=== PATIENT | male | born 1935 | race Caucasian/White ===

== ENCOUNTER → 2023-07-21 10:41 | Outpatient (REF) | payer MEDICARE, SELFPAY ==
[2023-07-21 13:46] LABS: PSA, Total - Diagnostic 4.12 ng/ml (0.0-4.0)
== END ==
LOC: REG 10:41
PROVIDERS: ATTENDING PHYSICIAN Specialist
DX: C61 Malignant neoplasm of prostate (principal)
CPT/HCPCS: 36415; 84153

== ENCOUNTER → 2023-11-22 09:50 | Outpatient (REF) | payer MEDICARE, SELFPAY ==
[2023-11-22 20:40] LABS: ALT (SGPT) 43 U/L (0-50); AST (SGOT) 45 U/L (17-59); Albumin 4.6 g/dl (3.5-5.0); Alkaline Phosphatase 75 U/L (38-126); Blood Urea Nitrogen 18 mg/dl (9-20); Calcium 9.5 mg/dl (8.4-10.2); Carbon Dioxide 27 mmol/L (22-30); Chloride 103 mmol/L (98-107); Glucose 111 mg/dl (70-99); HDL Cholesterol 48 mg/dl; LDL Cholesterol, Calculated 112 mg/dl; Potassium 4.6 mmol/L (3.5-5.1); Sodium 141 mmol/L (135-145); Total Bilirubin 0.9 mg/dl (0.2-1.3); Total Cholesterol 184 mg/dl (50-199); Total Protein 8.1 g/dl (6.3-8.2); Triglyceride 123 mg/dl (10-149); Very Low Density Lipoprotein 24 mg/dl (0-30); eGFR > 60.00
== END ==
LOC: CLAB 09:50
PROVIDERS: ATTENDING PHYSICIAN Family Medicine
DX: E78.2 Mixed hyperlipidemia (principal)
CPT/HCPCS: 36415; 80053; 80061

== ENCOUNTER → 2024-01-17 10:47 | Outpatient (REF) | payer MEDICARE, SELFPAY ==
[2024-01-17 14:08] LABS: PSA, Total - Diagnostic 5.55 ng/ml (0.0-4.0)
== END ==
LOC: RAD 10:47
PROVIDERS: ATTENDING PHYSICIAN Specialist
DX: C61 Malignant neoplasm of prostate (principal)
CPT/HCPCS: 36415; 84153

== ENCOUNTER → 2024-07-18 10:36 | Outpatient (REF) | payer MEDICARE, SELFPAY ==
[2024-07-18 12:32] LABS: PSA, Total - Diagnostic 7.29 ng/ml (0.0-4.0)
== END ==
LOC: REG 10:36
PROVIDERS: ATTENDING PHYSICIAN Specialist
DX: C61 Malignant neoplasm of prostate (principal)
CPT/HCPCS: 36415; 84153

== ENCOUNTER → 2024-07-21 15:43 | Outpatient (REF) | payer MEDICARE, SELFPAY ==
[2024-07-21 16:45] LABS: Urine Albumin 4+ (Neg - Trace); Urine Bilirubin Negative (Negative); Urine Character Bloody (Clear); Urine Color Red; Urine Glucose Negative (Negative); Urine Ketone 1+ (Negative); Urine Leukocyte Negative (Negative); Urine Nitrite Negative (Negative); Urine Occult Blood 4+ (Negative); Urine Urobilinogen Negative (Neg - 1+)
[2024-07-21 16:53] LABS: Urine Bacteria Few (Negative); Urine Red Blood Cell >100 /HPF (0-2); Urine Squamous Cell 0-2 /LPF (Few)
== END ==
LOC: REG 15:43
PROVIDERS: ATTENDING PHYSICIAN Specialist; FAMILY PHYSICIAN Family Medicine
DX: N39.0 Urinary tract infection, site not specified (principal); R31.9 Hematuria, unspecified
CPT/HCPCS: 81003; 81015; 87086

== ENCOUNTER 2024-07-25 09:32 | Inpatient (IN) | payer MEDICARE, SELFPAY ==
[2024-07-21 20:19] VITALS: BP 192/97
[2024-07-21 20:54] LABS: Urine Albumin 4+ (Neg - Trace); Urine Bilirubin Negative (Negative); Urine Character Bloody (Clear); Urine Color Red; Urine Glucose Negative (Negative); Urine Ketone Negative (Negative); Urine Leukocyte 1+ (Negative); Urine Nitrite Negative (Negative); Urine Occult Blood 4+ (Negative); Urine Urobilinogen Negative (Neg - 1+)
[2024-07-21 20:55] LABS: Urine Red Blood Cell >100 /HPF (0-2)
--- NOTE | 2024-07-21 21:13 | ED.GENMED ---
History of Present Illness
General
Chief Complaint: Male Genito-Urinary Symptoms
Source: patient
Exam Limitations: none
Time Seen by Provider: 07/21/24 20:51
Nursing documentation reviewed up to this point in time: agreed with
History of Present Illness
History of Present Illness:
Patient is a 89-year-old male who presents to the ER for evaluation of hematuria. Patient has had multiple episodes of hematuria. He is not on blood thinners no prior history of hematuria. Patient reports it is getting more more difficult to
fully urinate however he denies any pain. Patient denies any abdominal pain back pain fever chills nausea vomiting. He is not on blood thinners.
Review of Systems
Review of Systems
Allergies reviewed?: Yes
All Other Systems: ROS reviewed and negative except as documented in HPI and ROS
Constitutional: Reports no symptoms
Respiratory: Reports no symptoms
Cardiac: Reports no symptoms
ABD/GI: Reports no symptoms
: Reports frequency and bleeding; Denies flank pain, urgency or discharge
Musculoskeletal: Reports no symptoms; Denies back pain
Skin: Reports no symptoms
Neurological: Reports no symptoms
Psychiatric: Reports no symptoms
Phy Exam
General Physical Exam
General Presentation: no apparent distress
General age: appears stated age
General Skin: warm and dry
General Habitus: normal
General Mental: alert
General Hydration: appears well hydrated
Course
Orders/Labs/Results
Orders:
Orders
07/21/24 20:24
EKG [Electrocardiogram (*1)] Urgent
Reason for Study: Hypertension, Benign
EKG- Treatment ONCE
07/21/24 20:38
UA Reflex to Culture [Urinalysis Reflex To Culture] Urgent
Date Specimen was Collected: 07/21/24
Time Specimen was Collected: 20:25
Urine Microscopic Reflex Cult Urgent
Urine Culture Urgent
LINDSEY Source: U
Specimen Description:
Date Specimen was Collected: 07/21/24
Time Specimen was Collected: 20:25
07/21/24 21:13
IV Insert/Care/Rem.- Treatment PRN
07/21/24 21:27
Complete Blood Count/With Diff Urgent
Comprehensive Metabolic Panel Urgent
07/21/24 21:49
Bladder Scan- Treatment ONCE
07/21/24 22:26
Rodriguez Placement- Treatment ONCE
Reason for insertion: Acute Retention
07/21/24 22:58
Lidocaine 2% [Lidocaine Uro-Jet 2%] 1 syringe .ROUTE .STK-MED ONE
07/21/24 23:44
Sterile Water [Sterile Water For Injection] 20 ml .ROUTE .STK-MED
07/22/24 01:30
CT Abd/pel Without Iv Or Oral Urgent
Comment:
Reason For Exam: new onset hematuria
07/22/24 01:41
Admit/Transfer Patient As Directed
Co-Sign Provider:
Level of Care: Observation services
Assign to:: Medical/Surgical
Physician / Group: Cyndy
Diagnosis: Hematuria
Code Status As Directed
Resuscitation Status: Full Code
PRN Pain Medication Management As Directed
May give lesser potent ordered pain med per pt: Yes
preference::
Protocol:: Medication orders for pain may be administered in a
manner that supports deferring to patient preference
when the pt is:
- Requesting an ordered lesser potent pain medication.
Least to most potent pain medications are defined
as: acetaminophen < NSAID < tramadol < opioids
(morphine, oxycodone, hydromorphone).
- Requesting a lesser dose of the same medication IF
ORDERED.
- Requesting a less intrusive route of administration
if both routes are prescribed by the provider (PO <
IV).
07/22/24 02:00
Flush (0.9% Sodium Chloride) [Flush (Nss)] See Dose Instructions IV PER PROTOCOL
07/22/24 03:53
Acetaminophen [Tylenol] 650 mg PO Q4HPRN PRN
Bisacodyl [Dulcolax] 10 mg RECTAL [id number] PRN
Docusate W/Senna [Senokot-S] 1 tablet PO BIDPRN PRN
Ondansetron Injectable [Zofran] 4 mg IV Q6HPRN PRN
Polyethylene Glycol Powder [Miralax] 17 grams PO DAILYPRN PRN
07/22/24 03:53
UROLOGY CONSULT Routine
Consulting Provider: Kam Clark
Was physician already notified: Yes
Comment: gross hematuria, urinary retention
Activity As Directed
Activity Level: With Assistance
Pneumatic Compression Sleeves As Directed
Type: Knee high
Vital Signs As Directed
Frequency: Per unit guidelines
Pulse Ox/spot Check [RESP] Routine
Quantity: 1
DX Deep Vein Thrombosis Video Routine
07/22/24 05:09
Type And Crossmatch [Type+Screen] IN AM
Basic Metabolic Panel IN AM
Complete Blood Count/No Diff IN AM
07/22/24 Breakfast
Regular
At Your Request: Full Participation
07/22/24 08:00
Multivitamin [Theragran] 1 tablet PO DAILY
Abnormal Lab Results
07/21/24 07/21/24
20:38 21:27
RBC 4.21 L 10^6/uL
(4.70-6.10)
Hct 38.6 L %
(39.0-52.0)
MCH 31.4 H pg
(27.0-31.0)
Absolute Monos (auto) 0.7 H 10^3/uL
(0.1-0.6)
Chloride 108 H mmol/L
(98-107)
Carbon Dioxide 20 L mmol/L
(22-30)
BUN 24 H mg/dl
(9-20)
Glucose 131 H mg/dl
(70-99)
Ur Occult Blood Reflex 4+ A
(Negative)
Leukocyte Esterase Rfl 1+ A
(Negative)
Urine RBC >100 A /HPF
(0-2)
Urine Albumin (Reflex) 4+ A
(Neg - Trace)
07/21/24 21:27
07/21/24 21:27
Vital Signs
Initial and Last Documented VS:
Initial Vital Signs
Temp Pulse Resp BP Pulse Ox
97.8 F 97 18 192/97 95
07/21/24 20:19 07/21/24 20:19 07/21/24 20:19 07/21/24 20:19 07/21/24 20:19
Last Documented Vital Signs
Temp Pulse Resp BP Pulse Ox
97.7 F 71 16 179/86 96
07/22/24 15:08 07/22/24 15:08 07/22/24 15:08 07/22/24 15:08 07/22/24 15:08
Branner Machine Tender consulted with Physician
Branner Machine Tender consulted with physician?: Yes
Name of Physician Consulted: Haritha
MDM/Problems Addressed
MDM/Problems Addressed:
Patient is a 89-year-old male who presents with hematuria, mild discomfort and urinary retention here in the ER. CBI was ordered small clot as per nurse and despite irrigation still with punch colored. as per ED attending would recommend
admission. d/c w/ urology who does request CT abd without contrast . no thinners. HGB stable normal renal function.
CAT scan shows mild right hydroureteronephrosis no obstructing stone hyperattenuating material within the bladder which may represent hemorrhage left inguinal hernia
Chronic conditions affecting care:
History of prostate cancer prostatectomy and radiation
*Radiology
Radiology exam reviewed: radiology read reviewed
*Pulse Oximetry
Patient hypoxic: no
*Critical Care Note
Total Time (30-74mins, 75-104mins- exclusive of procedures): Not Applicable
Patient Management
Discussion with other providers: Smoking Tobacco Packer Hand (DR Clark )
ED Attending Note
-
Portions of this chart may have been created with voice recognition software.� Occasional wrong word or��sound alike� substitutions may have occurred due to the inherent limitations of voice recognition software.
Discharge Plan
Departure
Patient Disposition: Admit
Date of Disposition: 07/22/24
Time of Disposition: 01:33
Admit to: Med/Surg
Admit to doctor: hospitalist
Presentation/result/management discussed w/ accepting MD/DO: Hospitalist
Patient with high blood pressure during this ER visit?: Yes
Condition: Fair
Covid-19: Not Applicable
Discharge Problem:
Hematuria
Interventions
Interventions:
*Risk Screen - Suicide Last Done: 07/22/24 03:57
*General Assessment Last Done: 07/21/24 20:19
*Neglect/Abuse Screening Last Done: 07/21/24 20:19
*ED- Fall Risk Assessment Last Done: 07/21/24 21:13
*ED COVID-19 Vaccine History Last Done: 07/22/24 03:57
*Nursing Disposition Last Done: 07/22/24 03:40
ED-Male Genitourinary Assessment Last Done: 07/21/24 21:13
Discharge Date and Time
Discharge Date/Time: 07/22/24 03:40
[2024-07-21 21:37] LABS: % Basophils 0.5 % (0-2); % Eosinophils 2.8 % (0-6); % Immature Granulocytes 0.3 % (0-0.5); % Lymphocytes 26.4 % (20.5-51.1); Absolute Eosinophils 0.2 10^3/uL (0-0.7); Absolute Lymphocytes 2.1 10^3/uL (1.2-3.4); Absolute Monocytes 0.7 10^3/uL (0.1-0.6); Absolute Neutrophils 4.8 10^3/uL (1.4-6.5); Hematocrit 38.6 % (39.0-52.0); Hemoglobin 13.2 g/dL (13.0-18.0); Mean Corp Hgb Conc. 34.2 g/dL (33.0-37.0); Mean Corpuscular Hgb 31.4 pg (27.0-31.0); Mean Corpuscular Volume 91.7 fL (80.0-94.0); Mean Platelet Volume 10.2 fL (7.4-10.4); Nucleated Red Blood Cells % 0 % (-); Platelet Count 219 10^3/uL (130-400); Red Blood Cell Count 4.21 10^6/uL (4.70-6.10); Red Cell Dist. Width 12.8 % (11.5-14.5); White Blood Cell Count 7.9 10^3/uL (4.8-10.8)
[2024-07-21 21:46] VITALS: BMI 28.8
[2024-07-21 21:57] LABS: ALT (SGPT) 18 U/L (0-50); AST (SGOT) 25 U/L (17-59); Albumin 4.5 g/dl (3.5-5.0); Alkaline Phosphatase 81 U/L (38-126); Blood Urea Nitrogen 24 mg/dl (9-20); Calcium 9.3 mg/dl (8.4-10.2); Carbon Dioxide 20 mmol/L (22-30); Chloride 108 mmol/L (98-107); Estimated Creatinine Clearance 52 ml/min; Glucose 131 mg/dl (70-99); Potassium 4.2 mmol/L (3.5-5.1); Sodium 138 mmol/L (135-145); Total Bilirubin 0.8 mg/dl (0.2-1.3); Total Protein 7.8 g/dl (6.3-8.2); eGFR > 60.00
[2024-07-21 22:00] VITALS: BP 157/77
[2024-07-22 00:52] VITALS: BP 140/70
--- NOTE | 2024-07-22 01:23 | HPS.HSE ---
Family Physician
-
Family Physician: Yuri Pineda
Chief Complaint
-
Hematuria
History of Present Illness
This is a 89-year-old male with past medical history significant for prostate cancer status post prostatectomy and radiation in 2006 with routine checks for elevated PSA treated by medications now currently off any medications and only on White 62
mg of aspirin daily presents to the emergency department with 1 day history of hematuria.
Patient did report that over the last 1 week he has had increased urinary frequency but denies any dysuria, denies any flank pain, denies fevers or chills. Denies any nausea or vomiting. He had no recent instrumentation. He denies no recent
procedures such as colonoscopy. He denies no recent trauma. He denies all recent changes in medications and only reports aspirin 162 mg p.o. daily which he takes for prophylactic reasons as he has no prior history of CAD or atherosclerotic disease.
He denies any prior history of hematuria except during a surgical procedure.
In the emergency department he was afebrile, blood pressure was 140/70 with a pulse of 73 satting 96% on room air.
His hemoglobin was 13.2 and no recent baseline to compare with. Blood count was normal as 219. Electrolytes BUN and creatinine were stable.
UA shows blood and marked hematuria with 1+ leukocyte Esterase.
ECG shows a normal sinus rhythm at a rate of 94.
Medical History
Past Medical History
Past Medical History: Reports Cancer (Prostate cancer status post prostatectomy and radiation)
Past Surgical History: Reports Urological (Prostatectomy) and Other (Hernia repair)
Social History
Tobacco: Former Smoker
Alcohol: Occasional
Drug: None
Personal:
Living: With Family
Employment: Retired
Family History
Family History: Not pertinent
Allergies / Home Medications
Allergies reflects when Allergies were last updated in [facility].
Home Medications with original date entered in [facility]
Allergy/Medication List:
Allergies
Allergy/AdvReac Type Severity Reaction Status Date / Time
No Known Allergies Allergy Verified 07/21/24 20:18
Home Medications
aspirin 81 mg tablet 162 mg PO DAILY 07/21/24
multivitamin 1 tab PO DAILY 07/21/24
Review of Systems
-
Constitutional: Reports No Symptoms
EENT: Reports No Symptoms
Respiratory: Reports No Symptoms
Cardiac: Reports No Symptoms
Abdomen/GI: Reports No Symptoms
: Reports Difficulty Voiding and Bleeding
Musculoskeletal: Reports No Symptoms
Skin: Reports No Symptoms
Neurological: Reports No Symptoms
Endocrine: Reports No Symptoms
Hematologic/Lymphatic: Reports No Symptoms
Psych: Reports No Symptoms
Physical Exam
Vital Signs
Vital Signs
Temp Pulse Resp BP Pulse Ox
97.8 F 75 16 140/70 96
07/21/24 20:19 07/22/24 00:52 07/22/24 00:52 07/22/24 00:52 07/22/24 00:52
Physical Exam
General: Well Developed, Well Nourished and No Apparent Distress
HEENT: NormoCephalic, Moist mucous membranes and Atraumatic
Respiratory: Clear
Cardiac: S1/S2 and Regular Rhythm; No Murmur or Rub
GI: Soft, Non Tender, Non Distended and Normal Bowel Sounds; No Organomegaly
Rectal: Deferred by Provider
Genito-urinary: Bloody Urine
Musculoskeletal: No Clubbing, No Cyanosis and No Edema
Skin: No Rash
Neuro: Nonfocal/grossly intact
Hematologic/Lymphatic: No Lymphadenopathy
Psych: Calm
Laboratory Results
-
07/21/24 21:27
07/21/24 21:27
Laboratory Results
Total Bilirubin 0.8 mg/dl (0.2-1.3) 07/21/24 21:27
AST 25 U/L (17-59) 07/21/24 21:27
ALT 18 U/L (0-50) 07/21/24 21:27
Alkaline Phosphatase 81 U/L (38-126) 07/21/24 21:27
Data Reviewed
-
Medical Tests (Nuc Med, Echo, EKG etc): Image Personally Visualized and interpreted
Lab Data: Labs Reviewed by me
Old Records: Reviewed
Impression/Plan
-
IMPRESSION:
89-year-old with acute episode of hematuria. Known prior history of prostate cancer status post. and radiation therapy. No recent instrumentation. No recent procedures. Denies any fevers or chills, denies any flank pain. Has urinary
frequency in the last few days but denies dysuria urgency or incontinence. UA with blood but cannot rule out infection. He has no systemic signs of infection.
PLAN:
Hematuria -no clear etiology, on aspirin 162 mg daily no other thinners and no trauma.
-Admit to [facility]
-On CBI with punch colored urine, no clots, continue CBI
-CT scan of the abdomen pelvis, rule out stone obstruction and mass
-Holding aspirin for now
-Urine cultures, hold antibiotics
- type and screen, trend H&H
-Urology consultation
DVT prophylaxis�SCDs
CODE STATUS�full code
--- NOTE | 2024-07-22 04:00 | PTCARENOTE ---
Patient arrived to [facility] from ED on stretcher. Patient ambulated from stretcher to bed. Patient oriented to room, patient AAOx3. Bed in lowest position, call waller within reach. Plan of care ongoing.
[2024-07-22 04:05] VITALS: BP 175/82
[2024-07-22 05:49] LABS: Hematocrit 36.6 % (39.0-52.0); Hemoglobin 12.4 g/dL (13.0-18.0); Mean Corp Hgb Conc. 33.9 g/dL (33.0-37.0); Mean Corpuscular Hgb 31.5 pg (27.0-31.0); Mean Corpuscular Volume 92.9 fL (80.0-94.0); Mean Platelet Volume 10.4 fL (7.4-10.4); Platelet Count 197 10^3/uL (130-400); Red Blood Cell Count 3.94 10^6/uL (4.70-6.10); Red Cell Dist. Width 12.8 % (11.5-14.5)
[2024-07-22 06:00] VITALS: BMI 27.6
[2024-07-22 06:11] LABS: Blood Urea Nitrogen 25 mg/dl (9-20); Calcium 9.2 mg/dl (8.4-10.2); Carbon Dioxide 26 mmol/L (22-30); Chloride 107 mmol/L (98-107); Estimated Creatinine Clearance 63 ml/min; Glucose 106 mg/dl (70-99); Potassium 4.4 mmol/L (3.5-5.1); Sodium 141 mmol/L (135-145); eGFR > 60.00
[2024-07-22 07:19] VITALS: BP 172/84
[2024-07-22] MEDS: THERAGRAN 1 TABLET PO (07:42)
[2024-07-22 09:20] VITALS: BP 179/94
[2024-07-22] MEDS: ZESTRIL 2.5 MG PO (09:45)
[2024-07-22 15:08] VITALS: BP 179/86
[2024-07-22 23:17] VITALS: BP 162/81
[2024-07-23] VITALS (8 sets, daily range): BP systolic 95–156; BP diastolic 48–89
--- NOTE | 2024-07-23 03:20 | PTCARENOTE ---
Patient having pain with his CBI. Complaining of a burning sensation and now he is saying his bladder feels full and is having some pain/tenderness with palpation to B/L lower quadrants of the abdomen. His CBI is still draining like it has been,
clot free and punch colored. CASING IN LINE SETTER Krissy Agosto notified. Bladder scan was 223. Patient laying on side. This RN hand irrigated twice and found many clots. CBI wide open. After clots removed, pain and burning was relieved. Will continue to monitor.
[2024-07-23] MEDS: THERAGRAN 1 TABLET PO (07:28)
[2024-07-23] MEDS: ZESTRIL 2.5 MG PO (07:28)
--- NOTE | 2024-07-23 09:26 | W.PN.URO.CBU ---
Today's Communication / Plan
-
to op room
Assessment / Plan
-
s/p xrt for acp on lupron now clots and heamturua and retntionct scan debris in bladder no obvous tumor for ctsto under anesthesia and clot evacand ulgeration
Diagnosis
-
Date of Service: July 23, 2024
-
Patient Diagnosis:
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
Post Op Day:
Subjective
-
asx
Objective
-
Vital Signs
Temp Pulse Resp BP Pulse Ox
97.7 F 80 16 156/89 97
07/23/24 07:00 07/23/24 07:00 07/23/24 07:00 07/23/24 07:00 07/23/24 07:00
Intake and Output
07/22/24 07/23/24 07/24/24
06:59 06:59 06:59
Intake Total 480 / 480
Output Total 0 / 0 2699 / 0 -1110 / -1110
Balance 0 / 0 -2220 / -1610 1110 / 1110
Intake:
Oral fluids 480 / 480
Output:
Urine, Voided 300 / 300
True Urine Output from CBI -300 / -300 2699 / 0 -1110 / -1110
Laboratory Results
07/22/24 05:09
07/22/24 05:09
Review of Systems
-
: Difficulty Voiding and Bleeding
Physical Exam
-
General - well developed, well nourished, no acute distress
Chest - clear bilaterally
Abdomen - soft, non-tender, positive bowel sounds, no CVAT, no incisional pain or distention
Genitalia - normal
Rectal - normal
Skin - warm & dry with no rash
Neuro - AOx3, no motor deficits
Extremities - no clubbing, no cyanosis, no edema
Incision - clean, dry
Dressing - clean, dry, intact
Care Review
Data Reviewed
Discussed with: Hospitalist and Nursing
CT Scan: Image Pers Reviewed
--- NOTE | 2024-07-23 09:28 | W.PN.URO.CBU ---
Today's Communication / Plan
-
saw ptb 07/22 did preop nhand irrigated clots set up suregy for 07/23
Assessment / Plan
-
s/p xrt for acp on lupron now clots and heamturua and retntionct scan debris in bladder no obvous tumor for ctsto under anesthesia and clot evacand ulgeration
Diagnosis
-
Date of Service: July 22, 2024
-
Patient Diagnosis:
Post Op Day:
Patient Diagnosis:
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
Post Op Day:
Objective
-
Vital Signs
Temp Pulse Resp BP Pulse Ox
97.7 F 80 16 156/89 97
07/23/24 07:00 07/23/24 07:00 07/23/24 07:00 07/23/24 07:00 07/23/24 07:00
Intake and Output
07/22/24 07/23/24 07/24/24
06:59 06:59 06:59
Intake Total 480 / 480
Output Total 0 / 0 2699 / 0 -1110 / -1110
Balance 0 / 0 -2220 / -1610 1110 / 1110
Intake:
Oral fluids 480 / 480
Output:
Urine, Voided 300 / 300
True Urine Output from CBI -300 / -300 2700 / 2090 -1110 / -1110
Laboratory Results
07/22/24 05:09
07/22/24 05:09
Physical Exam
-
General - well developed, well nourished, no acute distress
Chest - clear bilaterally
Abdomen - soft, non-tender, positive bowel sounds, no CVAT, no incisional pain or distention
Genitalia - normal
Rectal - normal
Skin - warm & dry with no rash
Neuro - AOx3, no motor deficits
Extremities - no clubbing, no cyanosis, no edema
Incision - clean, dry
Dressing - clean, dry, intact
--- NOTE | 2024-07-23 09:30 | W.PN.URO.CBU ---
Today's Communication / Plan
-
to op room today
Assessment / Plan
-
s/p xrt for acp on lupron now clots and heamturua and retntionct scan debris in bladder no obvous tumor for ctsto under anesthesia and clot evacand ulgeration
Diagnosis
-
Date of Service: July 23, 2024
-
Patient Diagnosis:
Post Op Day:
Patient Diagnosis:
Post Op Day:
Patient Diagnosis:
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
Post Op Day:
Subjective
-
stll bleeding
Objective
-
Vital Signs
Temp Pulse Resp BP Pulse Ox
97.7 F 80 16 156/89 97
07/23/24 07:00 07/23/24 07:00 07/23/24 07:00 07/23/24 07:00 07/23/24 07:00
Intake and Output
07/22/24 07/23/24 07/24/24
06:59 06:59 06:59
Intake Total 480 / 480
Output Total 0 / 0 2700 / 2090 -1110 / -1110
Balance 0 / 0 -2220 / -1610 1110 / 1110
Intake:
Oral fluids 480 / 480
Output:
Urine, Voided 300 / 300
True Urine Output from CBI -300 / -300 2700 / 2090 -1110 / -1110
Laboratory Results
07/22/24 05:09
07/22/24 05:09
Review of Systems
-
: Difficulty Voiding and Bleeding
Physical Exam
-
General - well developed, well nourished, no acute distress
Chest - clear bilaterally
Abdomen - soft, non-tender, positive bowel sounds, no CVAT, no incisional pain or distention
Genitalia - normal
Rectal - normal
Skin - warm & dry with no rash
Neuro - AOx3, no motor deficits
Extremities - no clubbing, no cyanosis, no edema
Incision - clean, dry
Dressing - clean, dry, intact
Care Review
Data Reviewed
Discussed with: Hospitalist and Nursing
CT Scan: Image Pers Reviewed
--- NOTE | 2024-07-23 10:37 | W.PN.HOSP.TC ---
Today's Communication/Plan
-
Assessment / Plan
Assessment / Plan
NAD
Scleral Anicteric
MMM
No JVD
CTABL
RRR, S1/S2
Soft, NT, ND, BS+
Warm, Dry
Rodriguez with pink urine
AAOx3
Calm
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
On CBI
For OR with urology for cystoscopy with clot evacuation/ulgeration
Hgb stable. Repeat CBC
Prostate cancer status post prostatectomy and xrt
Uro followimg/ outpatient follow up
Anticipated Discharge: > 48 hours
Subjective/Interval History
-
Date of Service: July 23, 2024
Seen and examined. No new complaints. No acute overnight events.
Objective Data
-
Vital Signs:
Vital Signs
Temp Pulse Resp BP Pulse Ox
97.7 F 80 16 156/89 97
07/23/24 07:00 07/23/24 07:00 07/23/24 07:00 07/23/24 07:00 07/23/24 07:00
I&O
07/22/24 07/23/24 07/24/24
06:59 06:59 06:59
Intake Total 480 / 480
Output Total 0 / 0 2700 / 2090 -1110 / -1110
Balance 0 / 0 -2220 / -1610 1110 / 1110
--- NOTE | 2024-07-23 10:55 | W.SUR.POST ---
Surgical Immediate Post Op
Note
Pre Op Diagnosis:
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
Post Op Diagnosis:
Procedure Performed:
cysto ecvacuation clot fulgeration bleeding sites
Primary Surgeon:
flashner
Secondary Surgeons:
Anesthesia:
general dr long
Estimated Blood Loss: 5cc
Fluids: nss
Drains/Shunts:[address]
Specimens/Cultures:
Doppler/Duplex/Angio (Y/N):
Complications: 0
Operative Findings: huge amout clots iorganized in bladder with suoperficail veins bleeding at bladder neck and threastened area left bladder dome denuded of epthelium but muscle layers in tact
--- NOTE | 2024-07-23 11:42 | PTCARENOTE ---
Pt. received from PACU AAO X3 and no complaints of pain. CBI running wide open draining blood tinged light pink output with no clots at this time. VS documented and stable.
--- NOTE | 2024-07-23 14:07 | CM ---
CM met with Eric at bedside to complete IA. Admitted with hematuria; went to OR today for clot evacuation.
Eric lives with his in a first floor apartment. No steps. He is (I) amb and adls.
Plan: Discharge to home with no identifed needs.
[2024-07-23] MEDS: TYLENOL 650 MG PO (18:11)
[2024-07-24] MEDS: TYLENOL 650 MG PO ×2 (00:29→19:49)
[2024-07-24 07:11] LABS: Hematocrit 34.7 % (39.0-52.0); Hemoglobin 11.5 g/dL (13.0-18.0); Mean Corp Hgb Conc. 33.1 g/dL (33.0-37.0); Mean Corpuscular Volume 93.5 fL (80.0-94.0); Mean Platelet Volume 10.7 fL (7.4-10.4); Platelet Count 216 10^3/uL (130-400); Red Blood Cell Count 3.71 10^6/uL (4.70-6.10); Red Cell Dist. Width 13.2 % (11.5-14.5); White Blood Cell Count 13.9 10^3/uL (4.8-10.8)
[2024-07-24 07:31] VITALS: BP 129/60
[2024-07-24] MEDS: ZESTRIL PO (07:52)
[2024-07-24] MEDS: THERAGRAN 1 TABLET PO (07:52)
[2024-07-24 08:23] LABS: Blood Urea Nitrogen 41 mg/dl (9-20); Carbon Dioxide 23 mmol/L (22-30); Chloride 109 mmol/L (98-107); Estimated Creatinine Clearance 48 ml/min; Glucose 120 mg/dl (70-99); Potassium 4.7 mmol/L (3.5-5.1); Sodium 141 mmol/L (135-145); eGFR 58.53
--- NOTE | 2024-07-24 09:25 | W.PN.HOSP.TC ---
Today's Communication/Plan
-
f/w urology recommendations
Empiric Rocephin
Assessment / Plan
Assessment / Plan
Physical Exam
-
General: Well Developed and Well Nourished
HEENT: Moist Mucous Membranes, Anicteric and PERRLA
Respiratory: Clear to Auscultation and Non-Labored Respirations; Negative Wheezes, Rales or Rhonchi
Cardiac: Regular Rhythm and S1/S2;
GI: Soft, Nontender, Nondistended and Normal Bowel Sounds
Musculoskeletal: No joint swelling. �Negative Edema, Left Lower Extrem
Skin: Warm, Dry and no rash
: Rodriguez with no clots. CBI
Neuro: Awake and AO to self and surroundings, he followed commands.
Psych: Calm
A/P:
# Acute blood loss anemia possibly exacerbated by use of aspirin/ radiation cystitis same and bladder injury
On CBI now, clearing urine, no clots
s/p cysto evacuation clot fulguration bleeding sites by Dr Clark on 07/23.
f/w urology
No fever or chills.
Will do empiric Rocephin
# Leukocytosis, reactive
No fever or chills
Denies abdominal pain
Prostate cancer status post prostatectomy and xrt
Uro following/ outpatient follow up
Total time spent to see the patient, examine the patient, review data and lab result, discuss treatment plan with patient, nursing staff around 55 minutes
Anticipated Discharge: > 48 hours
Subjective/Interval History
-
Date of Service: July 24, 2024
No chest pain
No sob
No fevers
Objective Data
-
Labs:
Laboratory Results
07/24/24
06:25
WBC 13.9 H
Hgb 11.5 L
Hct 34.7 L
Plt Count 216
Sodium 141
Potassium 4.7
Chloride 109 H
Carbon Dioxide 23
BUN 41 H
Creatinine 1.2
Glucose 120 H
Calcium 9.0
Vital Signs:
Vital Signs
Temp Pulse Resp BP Pulse Ox
97.3 F 69 20 129/60 96
07/24/24 07:31 07/24/24 07:31 07/24/24 07:31 07/24/24 07:31 07/24/24 07:31
I&O
07/23/24 07/24/24 07/25/24
06:59 06:59 06:59
Intake Total 480 / 480 1010 / 1010
Output Total 2700 / 2090 -1260 / -1260
Balance -2220 / -1610 2270 / 2270
--- NOTE | 2024-07-24 09:29 | PTCARENOTE ---
CBI stopped by urology, 3 way plugged. pt educated. encouraging ambulation. leg bag provided. monitoring specifically for clots/obstruction
--- NOTE | 2024-07-24 10:19 | CM ---
Patient seen at bedside
OBS status-form in chart
s/p cysto evacuation clot fulguration bleeding sites by Dr Clark on 07/23
PLAN: Home, when stable CM to continue to follow for needs
[2024-07-24] MEDS: STERILE WATER FOR INJECTION 10 ML IV (10:41)
[2024-07-24] MEDS: ROCEPHIN 1000 MG IV (10:41)
--- NOTE | 2024-07-24 10:47 | W.PN.URO.CBU ---
Today's Communication / Plan
-
stop cbi encourage oob teach torres and leg bag care and prn irigation technique
Assessment / Plan
-
s/p xrt for acp on lupron now clots and heamturia s/p fulgeration now hematuria rosemarie but needs folwy will stop cbi and if remains hematuria free then homwe today or am tyeady with torres
Diagnosis
-
Date of Service: July 24, 2024
-
Patient Diagnosis:
Post Op Day:
Patient Diagnosis:
Post Op Day:
Patient Diagnosis:
Post Op Day:
Patient Diagnosis:
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
Post Op Day:
Subjective
-
FREE OF HEMATURIA
Objective
-
Vital Signs
Temp Pulse Resp BP Pulse Ox
97.3 F 69 20 129/60 96
07/24/24 07:31 07/24/24 07:31 07/24/24 07:31 07/24/24 07:31 07/24/24 07:31
Intake and Output
07/23/24 07/24/24 07/25/24
06:59 06:59 06:59
Intake Total 480 / 480 1010 / 1010
Output Total 2699 -1260 / -1260
Balance -2220 / -1610 2270 / 2270
Intake:
Oral fluids 480 / 480 960 / 960
IV fluids (Total) 50 / 50
normosol 50 / 50
Output:
True Urine Output from CBI 2699 -1260 / -1260
Laboratory Results
07/24/24 06:25
07/24/24 06:25
Review of Systems
-
: Difficulty Voiding
Physical Exam
-
General - well developed, well nourished, no acute distress
Chest - clear bilaterally
Abdomen - soft, non-tender, positive bowel sounds, no CVAT, no incisional pain or distention
Genitalia - normal
Rectal - normal
Skin - warm & dry with no rash
Neuro - AOx3, no motor deficits
Extremities - no clubbing, no cyanosis, no edema
Incision - clean, dry
Dressing - clean, dry, intact
Care Review
Data Reviewed
Discussed with: Nursing
[2024-07-24 15:31] VITALS: BP 124/61
--- NOTE | 2024-07-24 17:02 | W.PN.UPDATE ---
Update Note
Progress Note Update
pt exoerincd dark urine with cbi offas expected. I hand irrigate d but there was no clots and pt no sxs ie no abd pain distenion etc will try transexamic iv 1 gm but will leave cbi off
--- NOTE | 2024-07-24 17:04 | PTCARENOTE ---
torres draining dark red with clots, irrigated. updated urology. no change in physical assessment. CB in reach
[2024-07-24] MEDS: TRANEXAMIC ACID 110 MG IV (17:47)
[2024-07-24 23:17] VITALS: BP 139/79
[2024-07-25 07:00] VITALS: BP 144/80
[2024-07-25 07:14] LABS: Hematocrit 35.4 % (39.0-52.0); Hemoglobin 12.1 g/dL (13.0-18.0); Mean Corp Hgb Conc. 34.2 g/dL (33.0-37.0); Mean Corpuscular Hgb 32.1 pg (27.0-31.0); Mean Corpuscular Volume 93.9 fL (80.0-94.0); Mean Platelet Volume 10.5 fL (7.4-10.4); Platelet Count 224 10^3/uL (130-400); Red Blood Cell Count 3.77 10^6/uL (4.70-6.10); Red Cell Dist. Width 13.1 % (11.5-14.5); White Blood Cell Count 10.5 10^3/uL (4.8-10.8)
[2024-07-25 07:46] LABS: Blood Urea Nitrogen 36 mg/dl (9-20); Carbon Dioxide 24 mmol/L (22-30); Chloride 108 mmol/L (98-107); Estimated Creatinine Clearance 71 ml/min; Glucose 99 mg/dl (70-99); Potassium 4.5 mmol/L (3.5-5.1); Sodium 141 mmol/L (135-145); eGFR > 60.00
[2024-07-25] MEDS: THERAGRAN 1 TABLET PO (07:51)
[2024-07-25 09:17] VITALS: BP 145/81; PULSE 78; O2SAT 97
--- NOTE | 2024-07-25 09:17 | W.PN.HOSP.TC ---
Addendum entered and electronically signed by Bryn Moreno MD 07/25/24 14:39:
Addendum
Patient was seen by urologist. Able to void with Rodriguez. Recommendation to discharge home with Rodriguez catheter. Patient has appointment tomorrow at urology office. Recommendation from urology to continue aspirin 81 mg daily for now. Discussed
with patient. Discussed with nursing staff. PT evaluated, no needs.
Total discharge time spent to see the patient, examine the patient, review data and lab result, discuss discharge plan with patient, nursing staff around 65 minutes
Original Note:
Today's Communication/Plan
-
PT/OT
f/w urology recommendations, hope to dc
Assessment / Plan
Assessment / Plan
Physical Exam
-
General: Well Developed and Well Nourished
HEENT: Moist Mucous Membranes, Anicteric and PERRLA
Respiratory: Clear to Auscultation and Non-Labored Respirations; Negative Wheezes, Rales or Rhonchi
Cardiac: Regular Rhythm and S1/S2;
GI: Soft, Nontender, Nondistended and Normal Bowel Sounds
Musculoskeletal: No joint swelling. �Negative Edema, Left Lower Extrem
Skin: Warm, Dry and no rash
: Rodriguez with no clots. off CBI
Neuro: Awake and AO to self and surroundings, he followed commands.
Psych: Calm
A/P:
# Acute blood loss anemia possibly exacerbated by use of aspirin/ radiation cystitis same and bladder injury
On CBI now, clearing urine, no clots
s/p cysto evacuation clot fulguration bleeding sites by Dr Clark on 07/23.
No fever or chills.
c/w empiric Rocephin while in hospital for short course.
# Leukocytosis, reactive
No fever or chills
Denies abdominal pain
Prostate cancer status post prostatectomy and xrt
Uro following/ outpatient follow up
Total time spent to see the patient, examine the patient, review data and lab result, discuss treatment plan with patient, nursing staff around 55 minutes
Anticipated Discharge: Within 24 hours
Subjective/Interval History
-
Date of Service: July 25, 2024
no chest pain
no sob
Objective Data
-
Labs:
Laboratory Results
07/25/24
06:47
WBC 10.5
Hgb 12.1 L
Hct 35.4 L
Plt Count 224
Sodium 141
Potassium 4.5
Chloride 108 H
Carbon Dioxide 24
BUN 36 H
Creatinine 0.8
Glucose 99
Calcium 9.0
Vital Signs:
Vital Signs
Temp Pulse Resp BP Pulse Ox
97.8 F 73 17 144/80 95
07/25/24 07:00 07/25/24 07:00 07/25/24 07:00 07/25/24 07:00 07/25/24 07:00
I&O
07/24/24 07/25/24 07/26/24
06:59 06:59 06:59
Intake Total 1010 / 1010 540 / 540
Output Total -1260 / -1260 1450 / 1450
Balance 2270 / 2270 -910 / -910
--- NOTE | 2024-07-25 09:33 | PTOTSP ---
PATIENT ABLE TO MOBILIZE INDEPENDENTLY ON LEVEL SURFACES WELL ELEVATIONS WITH NO COMPLAINTS OF PAIN, DIZZINESS, LIGHTHEADEDNESS OR SHORTNESS OF BREATH. PATIENT REQUIRES NO FURTHER ACUTE CARE SKILLED P.T. AT THIS TIME. WILL DISCHARGE FROM P.T.
SERVICES.
--- NOTE | 2024-07-25 09:59 | CM ---
Patient seen at bedside
tt from UR - LOC change to Inpatient
IMM explained & signed. In chart
torres
discussed VN-agreeable
would prefer [facility]
PT eval-no need
PLAN: home, [facility]
[2024-07-25] MEDS: ROCEPHIN 1000 MG IV (10:08)
[2024-07-25] MEDS: STERILE WATER FOR INJECTION 10 ML IV (10:08)
--- NOTE | 2024-07-25 10:38 | VNURNOTE ---
Home Health Liaison met with patient at bedside to discuss [facility] nurse/therapy, visits, schedule and homebound status. Patient is agreeable and understands that visits at home will be 2-3 x per week to assess and teach medical and torres management.
He states that he has a Uro appt tomorrow that he wants to keep. Will note that in referral. Patient is aware that [facility] will contact them for start of care in 1-2 days after discharge from .
[facility] referral completed in [facility].
--- NOTE | 2024-07-25 11:46 | W.PN.SURGUPD ---
Surgical Update
Surgical Update
Patient remains comfortable
Urine remains grossly bloody off CBI but free of clot and catheter has not required irrigation
---
Tolerating diet
VSS
No CVAT or SP pain
---
Cleared for discharge home from standpoint: has an office appt with us tomorrow
[2024-07-25 12:55] VITALS: BP 172/93; PULSE 90; O2SAT 97
[2024-07-25 13:40] VITALS: BP 137/73
--- NOTE | 2024-07-25 15:04 | W.DCSUMMARY ---
Discharge Summary
Discharge Data
Date of Admission: 07/22/24
Date of Discharge: 07/25/24
-
Pending Results: No
Hospital Course
89 years old male presented with history of hematuria. Patient was evaluated by urologist. Patient has a history of radiation after removal of his prostate and recurrent prostate cancer. He is currently on Lupron. He was in his usual state of good
health when he started to develop gross hematuria 1-2 days ago and could not void. He came to the emergency room. A CAT scan was performed that showed a bladder filled with clot. He had cystoscopy evacuation of a clot with fulguration by
Eduardo on 07/23/24. Patient was diagnosed with radiation cystitis/bladder injury. Patient was taking 162 mg of aspirin which was held. He was maintained on continuous bladder irrigation and subsequently was weaned off. He did not have
significant blood loss anemia. He remained hemodynamically stable with normal renal function. He was given empiric antibiotics. Urology recommended to continue with 81 mg of aspirin. He was cleared for discharge home and to follow-up with
urology in the office. Patient had appointment in the office. He was discharged home with Rodriguez catheter. Physical therapy evaluated the patient and he did not have needs. Patient was discharged in a stable condition.
Discharge Plan
-
Patient Disposition: Home (Routine Discharge)
Discharge Diagnosis/Procedures: Hematuria status post cystoscopy, evacuation clot fulguration bleeding sites by Dr. Clark on 07/23.
Ok for aspirin 81 mg daily for now.
Diet: As tolerated
Referrals:
Yuri Pineda DO [Family Provider, Family Practice]
Kam Clark MD [Active, Urology] - in one day
Prescriptions:
Continued
multivitamin Tablet
1 tab PO DAILY
Changed
aspirin 81 mg Tablet
81 mg PO DAILY Qty: 0 0RF
Discharge Orders:
Discharge Patient (As Directed); Ordered 07/25/24
Ordered By: Bryn Moreno
Discharge Date and Time
Discharge Date/Time: 07/25/24 14:55
Print Language: PORTUGUESE
== END 2024-07-25 14:55 | disposition home health service (06) | DRG 669 ==
LOC: 3 WEST ACU 09:32
PROVIDERS: Emergency Medicine; Hospitalist; Nurse Practitioner; ADMITTING PHYSICIAN Internal Medicine; ATTENDING PHYSICIAN Internal Medicine; CONSULT PHYSICIAN Specialist; EMERGENCY PHYSICIAN Emergency Medicine; FAMILY PHYSICIAN Family Medicine
PROC: 0TCB8ZZ Extirpation of Matter from Bladder, Via Natural or Artificial Opening Endoscopic (ICD-10-PCS; 2024-07-23)
PROC: 0T5B8ZZ Destruction of Bladder, Via Natural or Artificial Opening Endoscopic (ICD-10-PCS; 2024-07-23)
DX: N30.41 Irradiation cystitis with hematuria (principal); D62 Acute posthemorrhagic anemia; D68.32 Hemorrhagic disorder due to extrinsic circulating anticoagulants; I10 Essential (primary) hypertension; N32.0 Bladder-neck obstruction; D72.829 Elevated white blood cell count, unspecified; R33.9 Retention of urine, unspecified; R35.0 Frequency of micturition; Y84.2 Radiological procedure and radiotherapy as the cause of abnormal reaction of the patient, or of later complication, without mention of misadventure at the time of the procedure; Z87.891 Personal history of nicotine dependence; Z79.82 Long term (current) use of aspirin; Z85.46 Personal history of malignant neoplasm of prostate; Z92.3 Personal history of irradiation; Z90.79 Acquired absence of other genital organ(s); Z79.818 Long term (current) use of other agents affecting estrogen receptors and estrogen levels
CPT/HCPCS: 51702; 51798; 74176; 80048; 80053; 81003; 81015; 85025; 85027; 86850; 86900; 86901; 87086; 93005; 97162; 97166; 97535; 99285

== ENCOUNTER → 2024-08-02 14:08 | Outpatient (REF) | payer MEDICARE, SELFPAY ==
[2024-08-02 17:41] LABS: Urine Albumin 3+ (Neg - Trace); Urine Bilirubin Negative (Negative); Urine Character Cloudy (Clear); Urine Color Amber; Urine Glucose Negative (Negative); Urine Ketone 1+ (Negative); Urine Leukocyte 2+ (Negative); Urine Nitrite Positive (Negative); Urine Occult Blood 4+ (Negative); Urine Specific Gravity 1.015 (<1.030); Urine Urobilinogen 1+ (Neg - 1+)
[2024-08-02 17:54] LABS: Urine Bacteria Few (Negative); Urine Red Blood Cell 30-40 /HPF (0-2); Urine Squamous Cell 0-2 /LPF (Few)
== END ==
LOC: CLAB 14:08
PROVIDERS: ATTENDING PHYSICIAN Specialist
DX: R39.9 Unspecified symptoms and signs involving the genitourinary system (principal)
CPT/HCPCS: 81003; 81015; 87086

== ENCOUNTER 2024-08-23 21:50 | Emergency (ER) | payer MEDICARE, SELFPAY ==
[2024-08-23 21:55] VITALS: BP 157/108
[2024-08-24 00:33] VITALS: BP 153/73
[2024-08-24 00:35] VITALS: BMI 27.7
--- NOTE | 2024-08-24 01:49 | ED.GENMED ---
History of Present Illness
General
Chief Complaint: Male Genito-Urinary Symptoms
Source: patient
Exam Limitations: none
Time Seen by Provider: 08/24/24 01:39
Nursing documentation reviewed up to this point in time: agreed with
History of Present Illness
History of Present Illness:
pt is a 89 y/o M
h/oprostate surgery years ago as well as radiation
on lupron
came to ER on 07/22-07/25 for hematuria and urinary retention
he had ct that showed bladder had clot
had cystoscopy oand evacuation of clot
dx with radiation cystitis
no signfiicant anemia
hwent home with torres catheter
had torres removed 1 wekk ago mustapha bess had ongoing bleeding until earlier on 08/23 when he cuoldn't void
he says while he was waiting to be seen, he ended up just being able to void; there was blood with clots and urine and now pt feels better and wants to go home
he has appt at [address] urogram
he does not want a torres
Past History
Past History
ED Past Medical History: Cancer (prostate)
ED Past Surgical History: Urological
Review of Systems
Review of Systems
Allergies reviewed?: Yes
All Other Systems: Not applicable
Phy Exam
Physical Exam
Physical Exam:
GENERAL: Alert , in no apparent distress
EYE: pupils equal and reactive
NECK: Supple
ENT: o/p clr, mmm.
CARDIAC: Regular rate and rhythm .
LUNGS: Clear breath sounds bilaterally, no acute respiratory distress, no wheezes/rales/rhonchi
ABDOMEN: Soft, without focal tenderness, no r/g, no cvat, normal bowel sounds
NEUROLOGICAL: Alert and oriented, no focal neuro deficits
SKIN: Warm and dry, skin intact.
MUSCULOSKELETAL: No edema, well perfused. neg christiano's sign
PSYCH: Normal and appropriate interaction.
Course
Vital Signs
Initial and Last Documented VS:
Initial Vital Signs
Temp Pulse Resp BP Pulse Ox
36.6 C 90 18 157/108 98
08/23/24 21:55 08/23/24 21:55 08/23/24 21:55 08/23/24 21:55 08/23/24 21:55
Last Documented Vital Signs
Temp Pulse Resp BP Pulse Ox
36.6 C 80 20 165/79 98
08/23/24 21:55 08/24/24 01:51 08/24/24 01:51 08/24/24 01:51 08/24/24 02:30
MDM/Problems Addressed
Differential Diagnosis Includes:
Hematuria, radiation cystitis
MDM/Problems Addressed:
89-year-old male
With radiation cystitis and hematuria developed urinary retention yesterday lasting all day. Just prior to my evaluation patient was able to void, he did have some clots that he was able to pass. All along since this surgery was done 3 weeks ago
he has been passing clots and having hematuria. He did have a Torres that was removed about a week ago. He has an appointment today for a CT urogram. At this time patient was bladder scanned to show 40 mL in his bladder, he is in no distress and
his vitals are stable. He is not anticoagulated. He would like to go home without a Torres. He is aware that he could have further clot retention. He would prefer to call his urologist in the morning
*Pulse Oximetry
SaO2: 96
Oxygen Mode of Delivery: Room air
Patient hypoxic: no (98)
*Critical Care Note
Total Time (30-74mins, 75-104mins- exclusive of procedures): Not Applicable
ED Attending Note
-
Portions of this chart may have been created with voice recognition software.� Occasional wrong word or��sound alike� substitutions may have occurred due to the inherent limitations of voice recognition software.
Discharge Plan
Departure
Patient Disposition: Home (Routine Discharge)
Date of Disposition: 08/24/24
Time of Disposition: 01:54
Patient with high blood pressure during this ER visit?: No
Condition: Fair
Covid-19: Not Applicable
Discharge Problem:
Hematuria, Acute urinary retention
Instructions: Blood in the Urine (Hematuria), Adult (DC), Urinary Retention (DC)
Prescriptions:
No Action
multivitamin Tablet
1 tab PO DAILY
aspirin 81 mg Tablet
81 mg PO DAILY Qty: 0 0RF
Referrals:
Yuri Pineda DO [Family Provider, Family Practice]
Activity Restrictions/Additional Instructions:
You were able to void and passed the urine in your bladder. You may have this recur. It is very important that your urologist know about this. Return to the ER for recurrence, or any concerns
Interventions
Interventions:
*Risk Screen - Suicide Last Done: 08/23/24 21:55
*General Assessment Last Done: 08/24/24 00:33
*Neglect/Abuse Screening Last Done: 08/23/24 21:55
*ED- Fall Risk Assessment Last Done: 08/24/24 00:33
*ED COVID-19 Vaccine History Last Done: 08/24/24 00:33
*Nursing Disposition Last Done: 08/24/24 02:30
ED-Male Genitourinary Assessment Last Done: 08/24/24 00:35
Discharge Date and Time
Discharge Date/Time: 08/24/24 02:30
Print Language: VIETNAMESE
[2024-08-24 01:51] VITALS: BP 165/79
== END 2024-08-24 02:30 | disposition home or self-care (01) ==
LOC: EMR 21:50
PROVIDERS: EMERGENCY PHYSICIAN Emergency Medicine; FAMILY PHYSICIAN Family Medicine
DX: R31.9 Hematuria, unspecified (principal); R33.9 Retention of urine, unspecified
CPT/HCPCS: 99282

== ENCOUNTER → 2024-08-24 13:17 | Outpatient (REF) | payer MEDICARE, SELFPAY | LOC: RAD 13:17 | PROVIDERS: ATTENDING PHYSICIAN Specialist; FAMILY PHYSICIAN Family Medicine | DX: R31.0 Gross hematuria (principal) | CPT/HCPCS: 74178; Q9967 ==

== ENCOUNTER 2024-09-01 22:48 | Emergency (ER) | payer MEDICARE, SELFPAY ==
[2024-09-01 23:26] VITALS: BP 186/108
--- NOTE | 2024-09-02 00:03 | ED.GENMED ---
History of Present Illness
<Servando López MD, Resident - Last Filed: 09/02/24 01:20>
General
Chief Complaint: Male Genito-Urinary Symptoms
Exam Limitations: none
Time Seen by Provider: 09/01/24 23:57
History of Present Illness
History of Present Illness:
This is a 89-year-old male presenting in the emergency department with complaints of unable to urinate. He was initially seen for similar complaints with hematuria on 07/21/24. Given his history of radiation after removal of his prostate, a CAT scan
was performed which showed bladder filled with clot. He had a cystoscopy, evacuation of the clot with fulguration by Dr. Clark on 07/23/2024. Patient was diagnosed with radiation cystitis/bladder injury. He was initially maintained on CBI and
subsequently was weaned off. Rodriguez was maintained for few weeks which was removed on the first week of August. Patient was seen for similar on 08/24/2024 however he was able to void on his own; there was blood with clots in the urine however patient
felt normal. Patient was scheduled for a CT urogram the same day and was discharged for the study and follow-up with urology. He refused Rodriguez at that visit.
Past History
<Servando López MD, Resident - Last Filed: 09/02/24 01:20>
Past History
ED Past Medical History: Cancer (prostate)
ED Past Surgical History: Urological
Social History
Tobacco: Non-smoker
Alcohol: Occasional
Drug: None
Personal:
Living: with family
Family History
Family History: Other (Noncontributory)
Review of Systems
<Servando López MD, Resident - Last Filed: 09/02/24 01:20>
Review of Systems
Allergies reviewed?: Yes
Constitutional: Denies fever or chills
Respiratory: Denies cough
Cardiac: Denies chest pain
ABD/GI: Denies abdominal pain
: Reports bleeding and other (Unable to void)
Musculoskeletal: Denies joint pain
Phy Exam
<Servando López MD, Resident - Last Filed: 09/02/24 01:20>
General Physical Exam
General Presentation: no apparent distress
General age: appears stated age
General Skin: warm
General Habitus: normal
Cardiovascular Exam
Cardiovascular Exam: regular rate/rhythm and no murmur
Pulmonary Exam
Pulmonary Exam: lungs clear and no crackles
Gastrointestinal Exam
Gastrointestinal Exam: normal bowel sounds, non tender, soft and non distended
Genitourinary Exam Male
Exam Male: other (428 mL on a bladder scan)
Neurological Exam
Neurological Exam: alert and oriented x3
Musculoskeletal Exam
Musculoskeletal Exam: full ROM
Course
<Servando López MD, Resident - Last Filed: 09/02/24 01:20>
Orders/Labs/Results
Orders:
Orders
09/02/24 00:24
Rodriguez Placement- Treatment ONCE
Reason for insertion: Acute Retention
09/02/24 00:44
Lidocaine 2% [Lidocaine Uro-Jet 2%] 1 syringe .ROUTE .[facility]
09/02/24 01:03
Complete Blood Count/With Diff Urgent
Comprehensive Metabolic Panel Urgent
Urinalysis Reflex To Culture Urgent
Date Specimen was Collected: 09/02/24
Time Specimen was Collected: 00:40
Vital Signs
Initial and Last Documented VS:
Initial Vital Signs
Temp Pulse Resp BP Pulse Ox
98.9 F 93 17 186/108 97
09/01/24 23:26 09/01/24 23:26 09/01/24 23:26 09/01/24 23:26 09/01/24 23:26
Last Documented Vital Signs
Temp Pulse Resp BP Pulse Ox
98.9 F 89 16 184/94 97
09/01/24 23:26 09/02/24 00:13 09/02/24 00:13 09/02/24 00:13 09/02/24 00:13
<Antonio Guardado, DO - Last Filed: 09/02/24 00:36>
Orders/Labs/Results
Orders:
Orders
09/02/24 00:24
Rodriguez Placement- Treatment ONCE
Reason for insertion: Acute Retention
09/02/24 00:44
Lidocaine 2% [Lidocaine Uro-Jet 2%] 1 syringe .ROUTE .[facility]
09/02/24 01:03
Complete Blood Count/With Diff Urgent
Comprehensive Metabolic Panel Urgent
Urinalysis Reflex To Culture Urgent
Date Specimen was Collected: 09/02/24
Time Specimen was Collected: 00:40
Vital Signs
Initial and Last Documented VS:
Initial Vital Signs
Temp Pulse Resp BP Pulse Ox
98.9 F 93 17 186/108 97
09/01/24 23:26 09/01/24 23:26 09/01/24 23:26 09/01/24 23:26 09/01/24 23:26
Last Documented Vital Signs
Temp Pulse Resp BP Pulse Ox
98.9 F 89 16 184/94 97
09/01/24 23:26 09/02/24 00:13 09/02/24 00:13 09/02/24 00:13 09/02/24 00:13
<Servando López MD, Resident - Last Filed: 09/02/24 01:20>
MDM/Problems Addressed
Differential Diagnosis Includes:
Radiation cystitis vs UTI vs less likely renal stone
MDM/Problems Addressed:
Will get CBC, CMP, UA with culture
Rodriguez treatment in the ER today
update: There was some resistance during insertion of the Rodriguez, Uro-Jet was used, felt clot was dislodged and urine came out prior to Rodriguez insertion. There was blood clot in 475 mL of urine in the Rodriguez. Patient reported instant relief.
He is in no distress and vitals are stable. He is not on any blood thinners. He requested to go home. Discussed that we will maintain the Rodriguez and encourage him to follow-up with the urologist for further recommendations and evaluation. He
voices understanding agree with the plan. Reviewed the return precautions.
<Servando López MD, Resident - Last Filed: 09/02/24 01:20>
*Pulse Oximetry
SaO2: 97
Oxygen Mode of Delivery: Room air
Patient hypoxic: no
*Critical Care Note
Total Time (30-74mins, 75-104mins- exclusive of procedures): Not Applicable
ED Attending Note
<Servando López MD, Resident - Last Filed: 09/02/24 01:20>
-
Portions of this chart may have been created with voice recognition software.� Occasional wrong word or��sound alike� substitutions may have occurred due to the inherent limitations of voice recognition software.
<Antonio Guardado, DO - Last Filed: 09/02/24 00:36>
ED Attending Note
Patient seen and examined by attending physician: Yes
I performed a history and physical exam of patient and discussed management with resident, I reviewed resident's note and agree with documented findings and plan of care.: Yes
ED Attending Note:
Seen with resident examined independently nontoxic elderly male urology patient had a procedure earlier in the month intermittent episodes of retention seen earlier in the week to void spontaneously, here bladder scan grade 400 he is nontoxic will
ask RN to place Rodriguez check urine urine culture
Discharge Plan
Departure
Patient Disposition: Home (Routine Discharge)
Date of Disposition: 09/02/24
Time of Disposition: 01:19
Patient with high blood pressure during this ER visit?: Yes
Condition: Fair
Discharge Problem:
Hematuria
Instructions: Blood in the Urine (Hematuria), Adult (DC), How to Care for Your Rodriguez Catheter, Male, Urinary Retention (DC), BLOOD PRESSURE
Prescriptions:
No Action
multivitamin Tablet
1 tab PO DAILY
Referrals:
Stevan Mosley MD [Active, Urology] - Follow up in 2-3 days
Activity Restrictions/Additional Instructions:
You were seen in the emergency department with concerns of unable to urinate. A Rodriguez was inserted and you were able to pass the urine in the Rodriguez with 1 clot in 475 mL of urine. He is very important that your urologist know about this. Since
you had a recent CT on 08/24 no indication to have new imaging. Return to the ER for any recurrence or any other concerns. Will maintain the Rodriguez at this time until you see a urologist outpatient.
Interventions
Interventions:
*Risk Screen - Suicide Last Done: 09/01/24 23:26
*General Assessment Last Done: 09/02/24 00:05
*Neglect/Abuse Screening Last Done: 09/02/24 00:05
*ED- Fall Risk Assessment Last Done: 09/02/24 00:09
ED-Male Genitourinary Assessment Last Done: 09/02/24 00:20
Discharge Date and Time
Print Language: SAMI
[2024-09-02 00:05] VITALS: BMI 27.8
--- NOTE | 2024-09-02 00:07 | EDRN ---
Pt has pain and burning and feels he is going to urinate but is unable to do so. Last urination 10-1100 this morning. Pt adds he has had dribbling since that is bloody. No fever/chills/cough, abdominal pain, n/v. Pt has had torres inserted for
this issues. Last torres approximately 08/29.
[2024-09-02 00:13] VITALS: BP 184/94
[2024-09-02 01:14] LABS: Urine Character Cloudy (Clear)
[2024-09-02 01:16] LABS: Hematocrit 34.6 % (39.0-52.0); Hemoglobin 11.7 g/dL (13.0-18.0); Mean Corp Hgb Conc. 33.8 g/dL (33.0-37.0); Mean Corpuscular Volume 91.5 fL (80.0-94.0); Nucleated Red Blood Cells % 0 % (-); Platelet Count 230 10^3/uL (130-400); Red Cell Dist. Width 13.0 % (11.5-14.5)
[2024-09-02 01:27] LABS: ALT (SGPT) 14 U/L (0-50); AST (SGOT) 29 U/L (17-59); Albumin 4.3 g/dl (3.5-5.0); Alkaline Phosphatase 121 U/L (38-126); Blood Urea Nitrogen 25 mg/dl (9-20); Calcium 9.1 mg/dl (8.4-10.2); Carbon Dioxide 23 mmol/L (22-30); Chloride 107 mmol/L (98-107); Estimated Creatinine Clearance 44 ml/min; Glucose 124 mg/dl (70-99); Potassium 4.5 mmol/L (3.5-5.1); Sodium 139 mmol/L (135-145); Total Protein 7.7 g/dl (6.3-8.2); eGFR 53.17
[2024-09-02 01:32] LABS: Urine Red Blood Cell >100 /HPF (0-2); Urine White Cell 30-40 /HPF (0-5)
[2024-09-02 01:40] VITALS: BP 157/79
--- NOTE | 2024-09-02 01:43 | EDRN ---
Emptied torres. Pt opts to keep large bag on now since he is going home to sleep. Pt given leg bag to use during day. Pt says he has used them twice before and is comfortable switching the bags.
== END 2024-09-02 01:50 | disposition home or self-care (01) ==
LOC: EMR 22:48
PROVIDERS: EMERGENCY PHYSICIAN Emergency Medicine; FAMILY PHYSICIAN Family Medicine
DX: R31.9 Hematuria, unspecified (principal); R03.0 Elevated blood-pressure reading, without diagnosis of hypertension; Z92.3 Personal history of irradiation
CPT/HCPCS: 99283; 51798; 51702; 80053; 81003; 81015; 85025; 87077; 87086; 87147; 87186

== ENCOUNTER 2024-09-03 10:39 | Emergency (ER) | payer MEDICARE, SELFPAY ==
[2024-09-03 10:52] VITALS: BP 180/94
--- NOTE | 2024-09-03 13:17 | ED.GENMED ---
History of Present Illness
General
Chief Complaint: Catheter/Tube Problem
Source: patient
Exam Limitations: none
Time Seen by Provider: 09/03/24 13:06
History of Present Illness
History of Present Illness:
89-year-old male not on anticoagulants presents for evaluation of clogged Rodriguez catheter. He was here 2 days ago for hematuria. This was following a fulguration procedure by urology. He had radiation cystitis from prior cancer. He denies
lightheadedness or chest pain but prior to coming here he felt a full bladder and he was leaking urine around the catheter. No other complaints at this time
Past History
Past History
ED Past Medical History: Cancer (prostate)
ED Past Surgical History: Urological
Social History
Tobacco: Non-smoker
Alcohol: Occasional
Drug: None
Personal:
Living: with family
Family History
Family History: Other (Noncontributory)
Phy Exam
Physical Exam
Physical Exam:
General: Well-appearing male no acute respiratory distress
HEENT: Normocephalic
Heart: Regular rate and rhythm
Lungs: Clear no wheeze
exam: Rodriguez catheter in place. Abdomen on my exam is soft and nondistended. Please note nurse was able to irrigate the Rodriguez catheter and remove several clots and now the catheter is flowing at the time my exam
Course
Vital Signs
Initial and Last Documented VS:
Initial Vital Signs
Temp Pulse Resp BP Pulse Ox
97.5 F 92 18 180/94 96
09/03/24 10:52 09/03/24 10:52 09/03/24 10:52 09/03/24 10:52 09/03/24 10:52
Last Documented Vital Signs
Temp Pulse Resp BP Pulse Ox
97.5 F 92 18 180/94 96
09/03/24 10:52 09/03/24 10:52 09/03/24 10:52 09/03/24 10:52 09/03/24 10:52
MDM/Problems Addressed
Differential Diagnosis Includes:
Clogged Rodriguez catheter. This was irrigated by nursing staff and clots were easily removed and flow of the catheter was restored. Patient has since drained over 300 mL of urine. He is feeling much better. He will follow-up with his urology team
tomorrow. No indication for any further intervention at this time
*Pulse Oximetry
SaO2: 96
Oxygen Mode of Delivery: Room air
Patient hypoxic: no
*Critical Care Note
Total Time (30-74mins, 75-104mins- exclusive of procedures): Not Applicable
ED Attending Note
-
Portions of this chart may have been created with voice recognition software.� Occasional wrong word or��sound alike� substitutions may have occurred due to the inherent limitations of voice recognition software.
Discharge Plan
Departure
Patient Disposition: Home (Routine Discharge)
Date of Disposition: 09/03/24
Time of Disposition: 13:21
Patient with high blood pressure during this ER visit?: No
Discharge Problem:
Hematuria
Instructions: How to Care for Your Rodriguez Catheter, Male
Prescriptions:
No Action
multivitamin Tablet
1 tab PO DAILY
Activity Restrictions/Additional Instructions:
Please follow-up with your urology team. Return if worse otherwise
Interventions
Interventions:
*Risk Screen - Suicide Last Done: 09/03/24 10:52
*General Assessment Last Done: 09/03/24 10:52
*ED COVID-19 Vaccine History Last Done: 09/03/24 10:52
XF-Lzpxjl-Kliezhslbk Assessment Last Done: 09/03/24 13:05
ED-Male Genitourinary Assessment Last Done: 09/03/24 13:05
Discharge Date and Time
Print Language: PERSIAN
== END 2024-09-03 13:45 | disposition home or self-care (01) ==
LOC: EMR 10:39
PROVIDERS: EMERGENCY PHYSICIAN Student in an Organized Health Care Education/Training Program; FAMILY PHYSICIAN Family Medicine
DX: R31.9 Hematuria, unspecified (principal); Z46.6 Encounter for fitting and adjustment of urinary device; Z85.46 Personal history of malignant neoplasm of prostate
CPT/HCPCS: 99283

== ENCOUNTER → 2024-09-12 10:47 | Outpatient (REF) | payer MEDICARE, SELFPAY | LOC: CLAB 10:47 | PROVIDERS: ATTENDING PHYSICIAN Specialist | DX: R31.0 Gross hematuria (principal) | CPT/HCPCS: 87086 ==

== ENCOUNTER 2024-09-21 06:28 | Day surgery (SDC) | payer MEDICARE, SELFPAY ==
[2024-09-21] VITALS (7 sets, daily range): BP systolic 113–168; BP diastolic 54–95; BMI 28.6
== END 2024-09-21 11:50 | disposition home or self-care (01) ==
LOC: SDS 06:28
PROVIDERS: ATTENDING PHYSICIAN Specialist
DX: N13.30 Unspecified hydronephrosis (principal); N30.41 Irradiation cystitis with hematuria; Y84.2 Radiological procedure and radiotherapy as the cause of abnormal reaction of the patient, or of later complication, without mention of misadventure at the time of the procedure; N39.498 Other specified urinary incontinence; R31.0 Gross hematuria
CPT/HCPCS: 52351; 87077; 87086; A4300

== ENCOUNTER → 2024-10-04 12:13 | Outpatient (REF) | payer MEDICARE, SELFPAY | LOC: RAD 12:13 | PROVIDERS: ATTENDING PHYSICIAN Internal Medicine Cardiovascular Disease; FAMILY PHYSICIAN Family Medicine | DX: R06.09 Other forms of dyspnea (principal) | CPT/HCPCS: 71046 ==

== ENCOUNTER → 2024-10-09 09:29 | Outpatient (REF) | payer MEDICARE, SELFPAY ==
[2024-10-09 11:00] LABS: Hematocrit 32.5 % (39.0-52.0); Hemoglobin 10.5 g/dL (13.0-18.0)
[2024-10-09 11:26] LABS: D-Dimer 5.80 ug/mlFEU (0.00-0.50)
[2024-10-09 11:42] LABS: Albumin 4.0 g/dl (3.5-5.0); Blood Urea Nitrogen 33 mg/dl (9-20); Calcium 9.0 mg/dl (8.4-10.2); Carbon Dioxide 22 mmol/L (22-30); Chloride 107 mmol/L (98-107); Glucose 100 mg/dl (70-99); Potassium 5.4 mmol/L (3.5-5.1); Sodium 138 mmol/L (135-145); eGFR 35.98
== END ==
LOC: RAD 09:29
PROVIDERS: ATTENDING PHYSICIAN Internal Medicine Cardiovascular Disease; FAMILY PHYSICIAN Family Medicine
DX: R06.09 Other forms of dyspnea (principal); J43.9 Emphysema, unspecified; J94.8 Other specified pleural conditions; Z01.812 Encounter for preprocedural laboratory examination
CPT/HCPCS: 36415; 71275; 80069; 83880; 85014; 85018; 85379; Q9967

== ENCOUNTER 2024-10-12 02:54 | Emergency (ER) | payer MEDICARE, SELFPAY ==
[2024-10-12 03:11] VITALS: BP 135/87
[2024-10-12 03:48] VITALS: BMI 25.7
[2024-10-12 04:33] VITALS: BP 156/68
--- NOTE | 2024-10-12 04:34 | ED.GENMED ---
History of Present Illness
General
Chief Complaint: Male Genito-Urinary Symptoms
Source: patient, spouse, previous radiology exam (CT of the chest/PE study October 10 showing subsegmental pulmonary emboli within the right lower lobe. Also note of soft tissue expansile lytic lesion posterior lateral left seventh rib, left fifth
rib and sclerotic appearing lesion T5 vertebral body with mild loss of height. Concerning for osseous), previous hospital records (Previous hospitalization July 2024 for hematuria requiring cystoscopy and fulguration. Several previous ED visits in
August for hematuria, blocked Rodriguez catheter. Repeat cystoscopy September 21 for hematuria, right hydroureteronephrosis.) and other (Outpatient laboratory studies October 10. Creatinine of 1.8, unremarkable chemistries. BNP of 506. D-dimer elevated at
5.8. Hemoglobin 10.5.)
Exam Limitations: none
Time Seen by Provider: 10/12/24 03:44
History of Present Illness
History of Present Illness:
The patient is an 89-year-old male with a history of prostate cancer treated with prostatectomy and radiation in 2004. 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 The patient presented with hematuria and urinary retention. He
reports passing clots and noticed that on Wednesday, the urine was dark and 'more chamberlain' in color. He has been unable to urinate since yesterday afternoon, feeling the urge but unable to void. The patient had a cystoscopy and clot removal and
fulguration in July as well as repeat cystoscopy September 21 with placement of a catheter, which has been removed approximately two to three weeks ago. The patient finished a 10-day course of Bactrim yesterday, which was initially prescribed for one
week but extended a few more days. There is no associated fever.
Of note, patient was started on Apixaban (Eliquis) yesterday due to a recent diagnosis of pulmonary embolism confirmed via CT scan. He reported shortness of breath on exertion prior to diagnosis. No prior history of PE. He denies leg pain or
swelling. CAT scan was ordered by his medical records auditor, Dr. Leavitt. Other than Eliquis he takes no other anticoagulants.
He follows with Dr. Mosley.
Past History
Past History
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
ED Past Surgical History: Urological (Prostatectomy 2004)
Social History
Tobacco: Non-smoker
Alcohol: Occasional
Drug: None
Personal:
Living: with family
Employment: Retired
Family History
Family History: Other (Noncontributory)
Phy Exam
Physical Exam
Physical Exam:
GENERAL: 89-year-old gentleman appears his stated age, awake and alert, pleasant, appears in no acute distress. is accompanying.
EYE: anicteric
NECK: Supple, nontender, no meningismus, no significant adenopathy.
ENT: oral mucosa is moist. No rhinorrhea.
CARDIAC: Regular rate and rhythm. no murmur.
LUNGS: Clear breath sounds bilaterally, no acute respiratory distress, no wheezes/rales/rhonchi
ABDOMEN: Soft, nondistended, mild tenderness suprapubic region without appreciable bladder fullness, no r/g, no cvat. normoactive BS.
NEUROLOGICAL: Alert and oriented x3, no focal neuro deficits. Gait is steady.
SKIN: Warm and dry, normal color, skin intact. No rash.
MUSCULOSKELETAL: No C/C/E. peripheral pulses are full and equal b/l. No palpable tenderness.
PSYCH: Normal and appropriate interaction.
Course
Orders/Labs/Results
Orders:
Orders
10/12/24 04:03
Lidocaine 2% [Lidocaine Uro-Jet 2%] 1 syringe .ROUTE .[facility]
10/12/24 04:15
Rodriguez Catheter [Catheter- Indwelling] As Directed
Reason for insertion: Acute Retention
Size: 20
Type: 3 way
Discontinue Date/Time: 10/15/24 0600
10/12/24 04:43
Urinalysis Urgent
Date Specimen was Collected: 10/12/24
Time Specimen was Collected: 04:35
Urine Microscopic Urgent
Date Specimen was Collected: 10/12/24
Time Specimen was Collected: 04:35
Urine Culture Urgent
LINDSEY Source: Urine
Specimen Description:
Obtained by: Indwelling Catheter
Date Specimen was Collected: 10/12/24
Time Specimen was Collected: 04:35
Abnormal Lab Results
10/12/24
04:43
Urine Occult Blood 4+ A
(Negative)
Ur Leukocyte Esterase 1+ A
(Negative)
Urine RBC >100 A /HPF
(0-2)
Urine Albumin 4+ A
(Neg - Trace)
Vital Signs
Initial and Last Documented VS:
Initial Vital Signs
Temp Pulse Resp BP Pulse Ox
97.9 F 86 18 135/87 97
10/12/24 03:11 10/12/24 03:11 10/12/24 03:11 10/12/24 03:11 10/12/24 03:11
Last Documented Vital Signs
Temp Pulse Resp BP Pulse Ox
97.9 F 77 18 156/68 97
10/12/24 04:34 10/12/24 04:34 10/12/24 04:34 10/12/24 04:33 10/12/24 04:39
MDM/Problems Addressed
Differential Diagnosis Includes:
The Differential Diagnosis includes, in no particular order and is not limited to:
- Urinary tract infection
- Urethral blockage by clot
- Bladder tumor or malignancy
- Benign prostatic hyperplasia
- Bladder stones
- Cystitis
- Urethritis
- Renal cell carcinoma
- Glomerulonephritis
- Anticoagulation side effect
MDM/Problems Addressed:
Acute:
- Hematuria
- Urinary retention
- Recent pulmonary embolism
- History of cystoscopy with clot removal July 2024 and again September 21, 2024
Chronic:
- History of prostate cancer
Bedside bladder scan reveals approximately 350 cc within the bladder.
Will plan for three-way Rodriguez catheter to be inserted and perforation for potential need for CBI.
Will check urinalysis, urine culture.
Consider laboratory studies especially if noted to have significant hematuria, clots, requiring CBI.
Chronic conditions affecting care: Cancer (Prostate cancer, history of radiation cystitis with recurrent hematuria) and Other (Recent diagnosis of PE, recently began Eliquis as of yesterday)
Acute Exacerbation and/or Progression of Chronic Illness: Other (Recurrent gross hematuria. History of radiation cystitis.)
*Pulse Oximetry
SaO2: 97
Oxygen Mode of Delivery: Room air
Patient hypoxic: no
*Critical Care Note
Total Time (30-74mins, 75-104mins- exclusive of procedures): Not Applicable
Update Note
Update Note:
06:00
Urinalysis shows greater than 100 RBCs but no WBCs, no bacteria.
Rodriguez catheter now draining sukhjinder urine, hematuria is clearing.
Discussed importance of staying well-hydrated on a daily basis, increased fluid intake.
Will discharge to home with Rodriguez catheter in place.
Recommend prompt follow-up with urologist for recheck.
Return precautions discussed.
ED Attending Note
-
Portions of this chart may have been created with voice recognition software.� Occasional wrong word or��sound alike� substitutions may have occurred due to the inherent limitations of voice recognition software.
Discharge Plan
Departure
Patient Disposition: Home (Routine Discharge)
Date of Disposition: 10/12/24
Time of Disposition: 05:57
Patient with high blood pressure during this ER visit?: Yes
Condition: Good
Discharge Problem:
Recurrent hematuria, Bladder outlet obstruction
Instructions: How to Care for Your Rodriguez Catheter, Male, Blood in the Urine (Hematuria), Adult (DC)
Prescriptions:
No Action
multivitamin Tablet
1 tab PO DAILY
Eliquis 5 mg Tablet
5 mg PO BID
Rx Instructions:
Tkae 2 tablets by mouth twice a day for 7 days, then decrease to 1 tablet by mouth twice a day
Referrals:
Stevan Mosley MD [Family Provider, Urology] - Next open appointment
Interventions
Interventions:
*Risk Screen - Suicide Last Done: 10/12/24 03:11
*General Assessment Last Done: 10/12/24 03:11
*Neglect/Abuse Screening Last Done: 10/12/24 03:55
*ED- Fall Risk Assessment Last Done: 10/12/24 03:55
*ED COVID-19 Vaccine History Last Done: 10/12/24 03:55
ED-Male Genitourinary Assessment Last Done: 10/12/24 03:55
Discharge Date and Time
Print Language: SOL[place] ISLANDER
[2024-10-12 05:02] VITALS: BP 141/66
[2024-10-12 05:09] LABS: Urine Character Bloody (Clear)
[2024-10-12 05:51] LABS: Urine Red Blood Cell >100 /HPF (0-2); Urine Squamous Cell None seen /LPF (Few); Urine White Cell None Seen /HPF (0-5)
[2024-10-12 06:00] VITALS: BP 154/72
== END 2024-10-12 06:37 | disposition home or self-care (01) ==
LOC: EMR 02:54
PROVIDERS: EMERGENCY PHYSICIAN Emergency Medicine; FAMILY PHYSICIAN Specialist
DX: N32.0 Bladder-neck obstruction (principal); R31.9 Hematuria, unspecified; E78.00 Pure hypercholesterolemia, unspecified; I26.99 Other pulmonary embolism without acute cor pulmonale; Z79.01 Long term (current) use of anticoagulants; Z85.46 Personal history of malignant neoplasm of prostate; Z90.79 Acquired absence of other genital organ(s); Z92.3 Personal history of irradiation
CPT/HCPCS: 99283; 51702; 81003; 81015; 87086

== ENCOUNTER 2024-10-14 16:31 | Inpatient (IN) | payer MEDICARE, SELFPAY ==
[2024-10-14 14:01] VITALS: BP 152/90
--- NOTE | 2024-10-14 14:43 | ED.GENMED ---
History of Present Illness
General
Chief Complaint: Male Genito-Urinary Symptoms
Source: patient
Exam Limitations: none
Time Seen by Provider: 10/14/24 14:33
History of Present Illness
History of Present Illness:
89-year-old male on Eliquis presents with inability to have any urine passed through his catheter since last evening. He was here 3 days ago and had a catheter placed secondary to urinary retention. A 20 Swazi three-way catheter was. He is due
to see his urologist in 2 days. He states his last evening there has been no urine in the bag. He has noted some blood in the bag since the catheter was placed. He stopped taking his Eliquis last evening. No fevers. He notes lower abdominal
pain and full bladder sensation
Past History
Past History
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
ED Past Surgical History: Urological (Prostatectomy 2004)
Social History
Tobacco: Non-smoker
Alcohol: Occasional
Drug: None
Personal:
Living: with family
Employment: Retired
Family History
Family History: Other (Noncontributory)
Phy Exam
Physical Exam
Physical Exam:
General: Well-appearing male no acute distress
HEENT: Normocephalic
Heart: RRR, no murmurs
Lungs; Clear
ABd; soft, suprapubic tenderness is noted.
exam: Rodriguez catheter in place no significant urine in the bag. There is some blood in the bag.
Course
Orders/Labs/Results
Orders:
Orders
10/14/24 14:43
Bladder Scan- Treatment ONCE
10/14/24 15:03
Complete Blood Count/With Diff Urgent
Comprehensive Metabolic Panel Urgent
PT/INR [Prothrombin Time] Urgent
Abnormal Lab Results
10/14/24
15:03
RBC 3.36 L 10^6/uL
(4.70-6.10)
Hgb 9.6 L g/dL
(13.0-18.0)
Hct 29.4 L %
(39.0-52.0)
MCHC 32.7 L g/dL
(33.0-37.0)
Abs Immat Gran (auto) 0.1 H 10^3/uL
(0-0.05)
Immature Gran % 0.7 H %
(0-0.5)
Neutrophils % 77.0 H %
(42.2-75.2)
Lymphocytes % 15.6 L %
(20.5-51.1)
PT 19.8 H Sec
(11.4-14.6)
Sodium 134 L mmol/L
(135-145)
Potassium 5.2 H mmol/L
(3.5-5.1)
BUN 35 H mg/dl
(9-20)
Creatinine 2.1 H mg/dL
(0.7-1.3)
Glucose 136 H mg/dl
(70-99)
AST 65 H U/L
(17-59)
Alkaline Phosphatase 184 H U/L
(38-126)
10/14/24 15:03
10/14/24 15:03
Vital Signs
Initial and Last Documented VS:
Initial Vital Signs
Temp Pulse Resp BP Pulse Ox
98.5 F 83 18 152/90 98
10/14/24 14:10/14/24 14:01 10/14/24 14:01 10/14/24 14:01 10/14/24 14:01
Last Documented Vital Signs
Temp Pulse Resp BP Pulse Ox
98.5 F 83 18 145/71 97
10/14/24 14:01 10/14/24 14:01 10/14/24 14:01 10/14/24 15:08 10/14/24 15:15
MDM/Problems Addressed
Differential Diagnosis Includes:
Patient with this functioning Rodriguez catheter. Question clot retention or sediment. Also check for anemia given ongoing bleeding. Labs pending. Bladder scan to be ordered
*Pulse Oximetry
SaO2: 98
Oxygen Mode of Delivery: Room air
Patient hypoxic: no
*Critical Care Note
Total Time (30-74mins, 75-104mins- exclusive of procedures): Not Applicable
Update Note
Update Note:
Existing Rodriguez catheter unsuccessfully hand irrigated. This was removed and replaced with a larger three-way. There is a significant mount of bloody urine expressed through the catheter and CBI was initiated. Hemoglobin today is 9.6 which is a
gram lower than 5 days ago. Given the anticoagulated status continued bleeding and issues with his catheter will keep in hospital
ED Attending Note
-
Portions of this chart may have been created with voice recognition software.� Occasional wrong word or��sound alike� substitutions may have occurred due to the inherent limitations of voice recognition software.
Discharge Plan
Departure
Patient Disposition: Admit
Date of Disposition: 10/14/24
Time of Disposition: 16:01
Presentation/result/management discussed w/ accepting MD/DO: Hospitalist
Discharge Problem:
Hematuria
Prescriptions:
No Action
multivitamin Tablet
1 tab PO DAILY
Eliquis 5 mg Tablet
5 mg PO BID
Rx Instructions:
Tkae 2 tablets by mouth twice a day for 7 days, then decrease to 1 tablet by mouth twice a day
Referrals:
Yuri Pineda DO [Family Provider, Family Practice]
Interventions
Interventions:
*Risk Screen - Suicide Last Done: 10/14/24 14:01
*General Assessment Last Done: 10/14/24 14:01
*Neglect/Abuse Screening Last Done: 10/14/24 14:01
*ED- Fall Risk Assessment Last Done: 10/14/24 14:01
*ED COVID-19 Vaccine History Last Done: 10/14/24 14:01
ED-Male Genitourinary Assessment Last Done: 10/14/24 15:07
Discharge Date and Time
Print Language: ROMANIAN
[2024-10-14 15:03] VITALS: BMI 25.7
[2024-10-14 15:08] VITALS: BP 145/71
[2024-10-14 15:32] LABS: Hematocrit 29.4 % (39.0-52.0); Hemoglobin 9.6 g/dL (13.0-18.0); Mean Corp Hgb Conc. 32.7 g/dL (33.0-37.0); Mean Corpuscular Volume 87.5 fL (80.0-94.0); Nucleated Red Blood Cells % 0 % (-); Platelet Count 319 10^3/uL (130-400); Red Cell Dist. Width 12.9 % (11.5-14.5)
[2024-10-14 15:38] LABS: INR 1.66; PT 19.8 Sec (11.4-14.6)
[2024-10-14 15:55] LABS: ALT (SGPT) 18 U/L (0-50); AST (SGOT) 65 U/L (17-59); Albumin 3.8 g/dl (3.5-5.0); Alkaline Phosphatase 184 U/L (38-126); Blood Urea Nitrogen 35 mg/dl (9-20); Calcium 9.2 mg/dl (8.4-10.2); Carbon Dioxide 23 mmol/L (22-30); Chloride 107 mmol/L (98-107); Estimated Creatinine Clearance 27 ml/min; Glucose 136 mg/dl (70-99); Potassium 5.2 mmol/L (3.5-5.1); Sodium 134 mmol/L (135-145); Total Protein 7.2 g/dl (6.3-8.2); eGFR 29.90
--- NOTE | 2024-10-14 16:04 | HPS.HSE ---
Family Physician
-
Family Physician: Yuri Pineda
Chief Complaint
-
clot retention
History of Present Illness
HPI
89M HX chr Eliquis, prior PE, HX XRT cystitis, s/p protectctomy for CA prostate seen at ER:
- presents with inability to have any urine passed through his catheter since last evening.
- He was here 3 days ago and had a catheter placed secondary to urinary retention.
- A 20 Occitan three-way catheter was.
- due to see his urologist in 2 days.
- last evening there has been no urine in the bag.
- noted some blood in the bag since the catheter was placed.
- stopped taking his Eliquis last evening. No fevers.
- notes lower abdominal pain and full bladder sensation
Medical History
Past Medical History
Past Medical History: Reports Cancer (Prostate cancer status post prostatectomy and radiation)
Past Surgical History: Reports Urological (Prostatectomy) and Other (Hernia repair)
Social History
Tobacco: Former Smoker
Alcohol: Occasional
Drug: None
Personal:
Living: With Family
Employment: Retired
Family History
Family History: Not pertinent
Allergies / Home Medications
Allergies reflects when Allergies were last updated in [employer].
Home Medications with original date entered in [employer]
Allergy/Medication List:
Allergies
Allergy/AdvReac Type Severity Reaction Status Date / Time
No Known Allergies Allergy Verified 07/21/24 20:18
Home Medications
aspirin 81 mg tablet 162 mg PO DAILY 07/21/24
multivitamin 1 tab PO DAILY 07/21/24
Review of Systems
-
Constitutional: Reports No Symptoms
EENT: Reports No Symptoms
Respiratory: Reports No Symptoms
Cardiac: Reports No Symptoms
Abdomen/GI: Reports No Symptoms
: Reports See HPI, Difficulty Voiding and Bleeding
Musculoskeletal: Reports No Symptoms
Skin: Reports No Symptoms
Neurological: Reports No Symptoms
Endocrine: Reports No Symptoms
Hematologic/Lymphatic: Reports No Symptoms
Psych: Reports No Symptoms
Physical Exam
Vital Signs
Vital Signs
Temp Pulse Resp BP Pulse Ox
98.5 F 83 18 145/71 97
10/14/24 14:01 10/14/24 14:01 10/14/24 14:01 10/14/24 15:08 10/14/24 15:15
Physical Exam
General: Well Developed, Well Nourished and No Apparent Distress
HEENT: NormoCephalic, Moist mucous membranes and Atraumatic
Respiratory: Clear
Cardiac: S1/S2 and Regular Rhythm; No Murmur or Rub
GI: Soft, Non Tender, Non Distended and Normal Bowel Sounds; No Organomegaly
Rectal: Deferred by Provider
Genito-urinary: Bloody Urine
Musculoskeletal: No Clubbing, No Cyanosis and No Edema
Skin: No Rash
Neuro: Nonfocal/grossly intact
Hematologic/Lymphatic: No Lymphadenopathy
Psych: Calm
Laboratory Results
-
10/14/24 15:03
10/14/24 15:03
Laboratory Results
PT 19.8 Sec (11.4-14.6) H 10/14/24 15:03
INR 1.66 10/14/24 15:03
Total Bilirubin 0.7 mg/dl (0.2-1.3) 10/14/24 15:03
AST 65 U/L (17-59) H 10/14/24 15:03
ALT 18 U/L (0-50) 10/14/24 15:03
Alkaline Phosphatase 184 U/L (38-126) H 10/14/24 15:03
Data Reviewed
-
Lab Data: Labs Reviewed by me
Old Records: Reviewed
Impression/Plan
-
Vital Signs
Temp Pulse Resp BP Pulse Ox
98.5 F 83 18 145/71 97
10/14/24 14:01 10/14/24 14:01 10/14/24 14:01 10/14/24 15:08 10/14/24 15:15
Relevant Data
10/09/24 10/14/24
09:45 15:03
WBC 8.3
Hgb 10.5 L 9.6 L
INR 1.66
Creatinine 1.8 H 2.1 H
eGFR 35.98 29.90
Last hospitalist admission: Date of Admission: 07/22/24 - Date of Discharge: 07/25/24
Discharge Diagnosis/Procedures: Hematuria status post cystoscopy, evacuation clot fulguration bleeding sites by Dr. Clark on 07/23.
ASSESSMENT & PLAN
Pending Rx reconciliation
Clot retention
Gross Hematuria complicated by Clot retention and Obstructve ETHEL
Associated ACBLA
Underlying XRT cystitis ?
Hemodynamically stable
- Hold Eliquis since last night
- Bladder scan protocol
- CBI drainage
- trend H & H
- Uro consulted
Obstructive ETHEL due to clot retention
CKD3b
- Trend Cr with CBI drainage
HX status post prostatectomy and XRT
Recurrent Prostate cancer
- Uro following/ outpatient follow up
Right lower lobe subsegmental PEs October 10, 2024)
- on Chr Eliquis
- Hold Eliquis due to Hematuria with clot retention
DVT Px: SCD
Full Code
IP MS
[2024-10-14 19:00] VITALS: BP 182/91; BMI 25.4
[2024-10-14] MEDS: DILAUDID 0.25 MG IV (22:09)
[2024-10-14 22:48] LABS: Hematocrit 30.1 % (39.0-52.0); Hemoglobin 9.9 g/dL (13.0-18.0)
--- NOTE | 2024-10-14 22:52 | CONS.URO ---
Consultation
-
Date/Time Consultation Performed: 22:52 10/14/24
Performing Provider: Peffer
Reason for Consultation: Hematuria
Medical History
History of Present Illness
89M history of prostate cancer s/p prostatectomy and radiation
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
Cystoscopy and fulguration required 07/2024 and required additional hospital visits for hematuria since
Repeat cystoscopy was performed 09/21/2024 to evaluate R hydronephrosis, found to be likely due to edematous changes of the posterior bladder wall
09/2024 dx with subsegmental PE and has been on Eliquis starting 10/11
10/12 he presented to ED with inability to void and catheter was placed
Since then he has had hematuria at home with worsening catheter obstruction
Admitted today 10/14 for clot obstruction
CBI started in ED and catheter subsequently clotted off again this evening
Past Medical History
Past Medical History: Other (Prostate cancer, radiation cystitis)
Past Surgical History: Urological (Prostatectomy)
Social History
Tobacco: Former Smoker
Alcohol: Occasional
Drug: None
Family History
Family History: Reviewed & Not Pertinent
Allergies/Home Medications
Allergies
Allergy/AdvReac Type Severity Reaction Status Date / Time
No Known Allergies Allergy Verified 10/12/24 04:45
Home Medications
�Medication �Instructions �Recorded �Confirmed �Type
multivitamin 1 tab PO DAILY Supplement 07/21/24 10/12/24 History
apixaban 5 mg tablet (Eliquis) 5 mg PO BID 10/12/24 10/12/24 History
Physical Exam
Vital Signs
Vital Signs
Temp Pulse Resp BP Pulse Ox
97.5 F 89 18 182/91 98
10/14/24 19:00 10/14/24 19:00 10/14/24 19:00 10/14/24 19:00 10/14/24 19:00
Lab / Testing Results
Laboratory Results
10/14/24 22:43
10/14/24 15:03
Physical Exam
General: Well Developed and Well Nourished
Respiratory: Clear
Genito-urinary: Bloody Urine and Rodriguez Catheter
Neuro: AO x 3
Psych: Calm and Intact Judgement
Assessment / Plan
-
89M with recurrent/refractory hematuria due to radiation cystitis, ETHEL
On Eliquis for new PE
- Bladder irrigated at bedside with significant well formed clot removed
- CBI running pink on fast CBI
- Trend hematuria overnight, irrigate PRN
- NPO for possible OR tomorrow for cystoscopy and fulguration
- Hold anticoagulation if able - given PE heparin drip would be acceptable, to stop before OR
- ETHEL possibly related to moderate R ureteral obstruction or bladder outlet obstruction. Trend creatinine
- No UTI on UA/Cx 10/12
- Ceftriaxone for prophylaxis given multiple catheter manipulation and irrigation
May ultimately require more invasive management such as bilateral percutaneous nephrostomy tubes or bladder chemoablation
Overall prognosis poor
[2024-10-14 23:25] VITALS: BP 170/96
[2024-10-14] MEDS: ROCEPHIN 1000 MG IV (23:27)
[2024-10-14] MEDS: STERILE WATER FOR INJECTION 10 ML IV (23:27)
[2024-10-15] VITALS (16 sets, daily range): BP systolic 121–158; BP diastolic 59–88; BMI 25.3
--- NOTE | 2024-10-15 02:21 | W.PN.UPDATE ---
Update Note
Progress Note Update
~ 20:30 TT received that patient's CBI leaking and soaking pads underneath him. CBI placed on hold. Order placed to hand irrigate CBI. Patient evaluated, c/o pain and abdomen distended. Torres not draining, punch colored urine in torres bag. Attemped
to hand irrigate, did get some clots out and then unable to to instill or irrigate any further liquid. Patient rated abdominal pain at 9 out of 10. Ordered Dilaudid 0.25 mg IV x 1.
-TT'd on-call Urologist, Dr. Lyles, and reviewed situation. Dr. Lyles came in to see patient and irrigated bladder at bedside with significant well formed clot removed.
Per Urology, plan to continue CBI, trend H&H overnight, NPO for possible OR tomorrow for systoscopy and fulguration. Ceftriaxone for prophylaxis given multiple catheter manipulation and irrigation.
--- NOTE | 2024-10-15 02:43 | PTCARENOTE ---
BARIATRIC SURGEON notified @2020 regarding patient's CBI leaking, pt observed with saturated pads on bed. Order placed to irrigate catheter. BARIATRIC SURGEON on unit to see patient @2129 with attempts to irrigate catheter with clot removal. Patient received 1 x dose of 0.25 mg
of IV dilaudid with c/o 9/10 lower abdominal and suprapubic area pain. BARIATRIC SURGEON notified urologist. Dr. Lyles in to see patient @2217 with irrigation and clot removal. STAT lab for H&H ordered. Stat order of IV Ceftriaxone ordered and administered.
Order for patient to be NPO at midnight for possible OR. CBI restarted, plan of care continues.
[2024-10-15 07:04] LABS: Hematocrit 27.4 % (39.0-52.0); Hemoglobin 8.9 g/dL (13.0-18.0); Mean Corp Hgb Conc. 32.5 g/dL (33.0-37.0); Mean Corpuscular Volume 88.1 fL (80.0-94.0); Platelet Count 336 10^3/uL (130-400); Red Cell Dist. Width 13.2 % (11.5-14.5)
[2024-10-15 07:43] LABS: Blood Urea Nitrogen 39 mg/dl (9-20); Calcium 9.1 mg/dl (8.4-10.2); Carbon Dioxide 22 mmol/L (22-30); Chloride 107 mmol/L (98-107); Estimated Creatinine Clearance 24 ml/min; Glucose 131 mg/dl (70-99); Potassium 5.1 mmol/L (3.5-5.1); Sodium 136 mmol/L (135-145); eGFR 25.48
[2024-10-15] MEDS: ZOFRAN 4 MG IV (08:22)
--- NOTE | 2024-10-15 10:13 | W.PN.URO.CBU ---
Today's Communication / Plan
-
OR for clot evac, fulguration
Assessment / Plan
-
89M with recurrent/refractory hematuria due to radiation cystitis, ETHEL
On Eliquis for new PE
- OR today for cystoscopy and fulguration
- Hold anticoagulation if able - given PE heparin drip would be acceptable, to stop before OR
- ETHEL possibly related to moderate R ureteral obstruction or bladder outlet obstruction. Trend creatinine
- Indwelling ureteral stents would likely only exacerbate bleeding issues
- May ultimately require more invasive management such as bilateral percutaneous nephrostomy tubes
- No UTI on UA/Cx 10/12
- Ceftriaxone for prophylaxis given multiple catheter manipulation and irrigation
Overall prognosis poor with multiple competing issues
Diagnosis
-
Date of Service: October 15, 2024
-
Patient Diagnosis:
Prostate cancer
Radiation cystitis
Gross hematuria
PE
Post Op Day:
Subjective
-
No events overnight
Bleeding has continued off and on with CBI
Objective
-
Vital Signs
Temp Pulse Resp BP Pulse Ox
97.5 F 110 16 131/88 98
10/15/24 08:08 10/15/24 08:08 10/15/24 08:08 10/15/24 08:08 10/15/24 08:08
Intake and Output
10/14/24 10/15/24 10/16/24
06:59 06:59 06:59
Intake Total 9480 / 9480
Output Total 24246 / 29231
Balance -2420 / -2420
Intake:
Oral fluids 480 / 480
Amount instilled into Urinary 9000 / 9000
Drain (Total)
Output:
Urinary Drain Output (Total) 99610 / 95837
True Urine Output from CBI 1400 / 1400
Laboratory Results
10/15/24 06:02
10/15/24 06:02
Physical Exam
-
General - well developed, well nourished, no acute distress
Chest - clear
Abdomen - soft, non-tender
Rodriguez in place clear urine
--- NOTE | 2024-10-15 10:32 | PTCARENOTE ---
Report called to [facility]. Pt sent via transport to PACU with CBI infusing and light pink urine.
--- NOTE | 2024-10-15 13:08 | W.IMMPOSTOP ---
Surgical Immed Post Op Note
-
Primary Surgeon: Marcosfer
Assisting Surgeon: -
Pre-op Diagnosis: Radiation cystitis, R ureteral obstruction
Post-op Diagnosis: same
Procedure Performed: Cystoscopy, clot evacuation, bladder fulguration, transurethral resection of R ureteral orifice
Anesthesia Type: gen
Specimen / Cultures: none
Estimated Blood Loss: 1cc
Complications: none
Operative Findings: Extensive hypervascularity and edematous changes of bladder neck and trigone
Obstructed R ureteral orifice
R UO resected multiple times but still not patent at case conclusion
--- NOTE | 2024-10-15 13:11 | W.PN.UPDATE ---
Update Note
Progress Note Update
Urine completely clear post procedure on slow CBI
R ureter was able to be cannulated with a wire after resection but was still not draining
L UO was visible but no jet seen
CTAP to eval for degree of hydronephrosis
Okay to start heparin drip for PE
Patient may need procedure for nephrostomy tube placement
[2024-10-15 14:07] LABS: APTT 37.4 Sec (23.4-35.0)
[2024-10-15] MEDS: HEPARIN 25000 UNITS/250 ML IV (14:37)
--- NOTE | 2024-10-15 15:05 | W.PN.HOSP.TC ---
Today's Communication/Plan
-
Assessment / Plan
Assessment / Plan
General: No Apparent Distress, Comfortable and Conversant
HEENT: NormoCephalic, Moist mucous membranes, Atraumatic
Respiratory: Clear and Non Labored Respirations
Cardiac: S1/S2 and Regular Rhythm; No Rub or Gallop
GI: Soft, Non Tender, Non Distended and Normal Bowel Sounds
Musculoskeletal: No Edema, no deformity
Skin: Warm and dry
: Three-way urinary catheter with CBI, punch colored urine
Neuro: Awake, Alert, Nonfocal/grossly intact
Psych: Calm and Intact Judgment/Insight
Mr. 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
with acute urinary retention. He had a Rodriguez catheter placed during his recent evaluation in the ED for recurrent hematuria and urinary retention, which was 3 days prior to arrival for this admission. However he noticed that his Rodriguez catheter had
drained a few clots and then stopped draining any urine over many hours. He had developed lower abdominal discomfort and a sensation of a full bladder. He was started on continuous bladder irrigation and admitted for further evaluation and
management.
Hematuria with clots and acute urinary retention:
- Secondary to radiation cystitis, recurrent
- Continue CBI
- Urinary catheter became obstructed after admission due to clots, required extensive flushing by urologist and is now draining appropriately
- Holding Eliquis
- OR with urology today 10/15 for cystoscopy, clot evacuation, bladder fulguration, and transurethral resection of the right ureteral orifice
- Urology getting a CT to evaluate his ureters, may need nephrostomy tubes if obstruction has progressed
- Restarted anticoagulation with IV heparin drip for now for treatment of recent PE
Pulmonary embolism:
- Recently diagnosed 10/09/2024, started on Eliquis
- Holding Eliquis since this episode of hematuria started
- Anticoagulation for now with IV heparin drip
ETHEL:
- Suspect due to obstruction
- Monitor for improvement following intervention for urinary outlet obstruction
DVT prophylaxis: IV heparin
CODE STATUS: Full code
Total time spent on today's encounter was 54 minutes
Anticipated Discharge: > 48 hours
Subjective/Interval History
-
Date of Service: October 15, 2024
Patient was seen and examined at bedside this morning. He remains on CBI with pink-colored urine. No further discomfort after urinary catheter was able to be flushed overnight and is now draining appropriately.
Objective Data
-
Labs:
Laboratory Results
10/15/24 10/15/24 10/15/24
06:02 13:51 21:00
WBC 11.4 H
Hgb 8.9 L
Hct 27.4 L
Plt Count 336
APTT 37.4 H Pending
Sodium 136
Potassium 5.1
Chloride 107
Carbon Dioxide 22
BUN 39 H
Creatinine 2.4 H
Glucose 131 H
Calcium 9.1
Vital Signs:
Vital Signs
Temp Pulse Resp BP Pulse Ox
97.4 F 102 16 131/60 95
10/15/24 14:10 10/15/24 14:10 10/15/24 14:10 10/15/24 14:10 10/15/24 14:10
I&O
10/14/24 10/15/24 10/16/24
06:59 06:59 06:59
Intake Total 9480 / 9480 50 / 50
Output Total 49670 / 29279 -225 / -225
Balance -2420 / -2420 275 / 275
Review of Systems
-
History Source: Patient
All other systems: Reviewed and negative
Genitourinary: Reports Bleeding (Hematuria)
Physical Exam
-
General: No Apparent Distress
--- NOTE | 2024-10-15 16:13 | CM ---
Spoke with Kate pt off floor at test. Pt is alert awake oriented . They live in an apartment with one step to enter.He is independent in driving and all ADLS.He is current with [facility] and would like to resume at discharge. No adaptive devices.
[facility] current . No SNF hx
Pharmacy [facility] [address] Pineda
PLAN Home with [facility]
[2024-10-15 21:46] LABS: APTT 188.5 Sec (23.4-35.0)
[2024-10-16] VITALS (7 sets, daily range): BP systolic 108–139; BP diastolic 56–70; BMI 24.9
[2024-10-16 05:42] LABS: Hematocrit 21.9 % (39.0-52.0); Hemoglobin 7.1 g/dL (13.0-18.0); Mean Corp Hgb Conc. 32.4 g/dL (33.0-37.0); Mean Corpuscular Volume 88.7 fL (80.0-94.0); Nucleated Red Blood Cells % 0 % (-); Platelet Count 281 10^3/uL (130-400); Red Cell Dist. Width 13.1 % (11.5-14.5)
[2024-10-16 06:03] LABS: APTT 180.9 Sec (23.4-35.0)
[2024-10-16 06:20] LABS: Blood Urea Nitrogen 44 mg/dl (9-20); Calcium 8.4 mg/dl (8.4-10.2); Carbon Dioxide 20 mmol/L (22-30); Chloride 108 mmol/L (98-107); Estimated Creatinine Clearance 26 ml/min; Glucose 112 mg/dl (70-99); Potassium 4.9 mmol/L (3.5-5.1); Sodium 133 mmol/L (135-145); eGFR 28.28
[2024-10-16 06:51] LABS: PSA, Total - Diagnostic 8.21 ng/ml (0.0-4.0)
--- NOTE | 2024-10-16 09:51 | W.PN.HOSP.TC ---
Today's Communication/Plan
-
continue IV heparin
urine clear; follow Urology recs
1 unit PRBC for Hb 7.1
Assessment / Plan
Assessment / Plan
Mr. 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
with acute urinary retention. He had a Rodriguez catheter placed during his recent evaluation in the ED for recurrent hematuria and urinary retention, which was 3 days prior to arrival for this admission. However he noticed that his Rodriguez catheter had
drained a few clots and then stopped draining any urine over many hours. He had developed lower abdominal discomfort and a sensation of a full bladder. He was started on continuous bladder irrigation and admitted for further evaluation and
management.
Hematuria with clots and acute urinary retention:
- Secondary to radiation cystitis, recurrent
- Continue CBI per Urology
- Urinary catheter became obstructed after admission due to clots, required extensive flushing by urologist and is now draining appropriately
- Holding Eliquis
- s/p cystoscopy, clot evacuation, bladder fulguration, and transurethral resection of the right ureteral orifice on 10/15 with Urology
- CT: New mild left hydronephrosis and hydroureter. No obstructing mass nor stone identified. Stable mild right hydronephrosis and hydroureter now with new increased density to the fluid in the right collecting system suggesting hemorrhagic products.
- may need perc nephrostomy - defer to Urology
- Restarted anticoagulation with IV heparin drip for now for treatment of recent PE
Acute blood loss anemia in setting of hematuria
- Hb 7.1, 1 unit PRBC ordered
Pulmonary embolism:
- Recently diagnosed 10/09/2024, started on Eliquis
- Holding Eliquis since this episode of hematuria started
- Anticoagulation for now with IV heparin drip - requires intensive monitoring of PTTs
ETHEL:
- Suspect due to obstruction
- Monitor for improvement following intervention for urinary outlet obstruction
DVT prophylaxis: IV heparin
CODE STATUS: Full code
Anticipated Discharge: > 48 hours
Subjective/Interval History
-
Date of Service: October 16, 2024
urine clear
CBI running but slower rate per RN
Hb 7.1 and patient ordered 1 unit PRBC
Objective Data
-
Labs:
Laboratory Results
10/16/24 10/16/24
04:53 13:08
WBC 11.9 H
Hgb 7.1 L D
Hct 21.9 L
Plt Count 281
APTT 180.9 H* Pending
Sodium 133 L
Potassium 4.9
Chloride 108 H
Carbon Dioxide 20 L
BUN 44 H
Creatinine 2.2 H
Glucose 112 H
Calcium 8.4
Vital Signs:
Vital Signs
Temp Pulse Resp BP Pulse Ox
97.5 F 82 14 135/67 97
10/16/24 07:33 10/16/24 07:33 10/16/24 07:33 10/16/24 07:33 10/16/24 07:33
I&O
10/15/24 10/16/24 10/17/24
06:59 06:59 06:59
Intake Total 9480 / 9480 1250 / 1250
Output Total 08110 / 05416 525 / 525
Balance -2420 / -2420 725 / 725
Physical Exam
-
General: No Apparent Distress
HEENT: Normocephalic and Atraumatic
Respiratory: Negative Wheezes
Cardiac: Regular Rhythm and S1/S2
GI: Soft
Genito-urinary: No Costovertebral Tender, Clear Urine and Continuous Bladder Irrigation
Neuro: AO x 3
Psych: Calm
Data Reviewed
-
Total Time Spent with Patient (in minutes): 51
Labs: Labs Reviewed by me
--- NOTE | 2024-10-16 14:08 | W.PN.URO.CBU ---
Today's Communication / Plan
-
Clamp CBI
Trend renal function
Heparin drip for anticoagulation
Assessment / Plan
-
89M with recurrent/refractory hematuria due to radiation cystitis, ETHEL
On Eliquis for new subsegmental PE
Bilateral hydronephrosis due to distal ureteral obstruction
- s/p OR 05/15/24 for cystoscopy, extensive vaporization and fulguration of entire bladder trigone and bladder neck, resection of R ureteral orifice
- Hematuria since resolved
- Stop CBI and observe on anticoagulation in setting of new PE
- ETHEL/worsening renal function due to R ureteral obstruction now with new mild L hydronephrosis
- Ureteral obstruction due to severe radiation cystitis and bladder wall thickening. Attempt made to resect over the R ureteral orifice through nearly 1cm of thickened bladder wall with ureter still not draining
- Indwelling ureteral stents would likely only exacerbate recurrent bleeding issues
- May ultimately require bilateral percutaneous nephrostomy tubes to ensure adequate renal function
- Trend creatinine and urine output
- Continue heparin drip for anticoagulation until decision is made regarding need for further procedures
Prostate cancer
- s/p surgery and radiation with PSA increasing slowly over several years indicating likely recurrence
- Prostate cancer may contribute to distal ureteral obstruction
Diagnosis
-
Date of Service: October 16, 2024
-
Patient Diagnosis:
Prostate cancer
Radiation cystitis
Gross hematuria
PE
bilateral hydronephrosis
Post Op Day:
Subjective
-
No events overnight
No hematuria
Objective
-
Vital Signs
Temp Pulse Resp BP Pulse Ox
97.9 F 78 16 139/66 97
10/16/24 13:33 10/16/24 13:33 10/16/24 13:33 10/16/24 13:33 10/16/24 07:33
Intake and Output
08/31/25 09/01/25 09/02/25
06:59 06:59 06:59
Intake Total 9480 / 9480 1250 / 1250 250 / 250
Output Total 64722 / 73664 525 / 525
Balance -2420 / -2420 725 / 725 250 / 250
Intake:
Oral fluids 480 / 480 1200 / 1200
IV fluids (Total) 50 / 50
normosol 50 / 50
Amount instilled into Urinary 9000 / 9000
Drain (Total)
Blood Product Amount Infused ( 250 / 250
mL)
Packed Rbc Leukoreduced Unit 250 / 250
[id number]
Output:
Urinary Drain Output (Total) 10311 / 35049
True Urine Output from CBI 1400 / 1400 525 / 525
Laboratory Results
10/16/24 04:53
10/16/24 04:53
Physical Exam
-
General - well developed, well nourished, no acute distress
Chest - clear bilaterally
Abdomen - soft, non-tender
torres in place, clear on CBI
[2024-10-16] MEDS: HEPARIN 25000 UNITS/250 ML IV (15:08)
[2024-10-16 15:17] LABS: APTT 75.8 Sec (23.4-35.0)
[2024-10-16 21:23] LABS: APTT 80.1 Sec (23.4-35.0)
[2024-10-17 06:00] VITALS: BMI 25.0
[2024-10-17 07:48] VITALS: BP 137/68
[2024-10-17 08:05] LABS: Hematocrit 23.8 % (39.0-52.0); Hemoglobin 7.8 g/dL (13.0-18.0); Mean Corp Hgb Conc. 32.8 g/dL (33.0-37.0); Mean Corpuscular Volume 88.8 fL (80.0-94.0); Nucleated Red Blood Cells % 0 % (-); Platelet Count 253 10^3/uL (130-400); Red Cell Dist. Width 13.3 % (11.5-14.5)
[2024-10-17 08:21] LABS: APTT 67.7 Sec (23.4-35.0)
--- NOTE | 2024-10-17 08:39 | W.PN.URO.CBU ---
Today's Communication / Plan
-
Trial of void
Observe for hematuria
Continue heparin gtt
Trend renal function
Assessment / Plan
-
89M with recurrent/refractory hematuria due to radiation cystitis, ETHEL
On Eliquis for new subsegmental PE
Bilateral hydronephrosis due to distal ureteral obstruction
- s/p OR 05/15/24 for cystoscopy, extensive vaporization and fulguration of entire bladder trigone and bladder neck, resection of R ureteral orifice
- Hematuria since resolved x48 hours, off CBI
- Remove torres for trial of void today
- ETHEL/worsening renal function due to R ureteral obstruction now with new mild L hydronephrosis
- Ureteral obstruction due to severe radiation cystitis and bladder wall thickening. Attempt made to resect over the R ureteral orifice through nearly 1cm of thickened bladder wall with ureter still not draining
- Indwelling ureteral stents would likely only exacerbate recurrent bleeding issues
- May ultimately require bilateral percutaneous nephrostomy tubes to ensure adequate renal function
- Trend creatinine
- Continue heparin drip for anticoagulation until decision is made regarding need for further procedures
Prostate cancer
- s/p surgery and radiation with PSA increasing slowly over several years indicating likely recurrence
- Prostate cancer may contribute to distal ureteral obstruction
- Consider further outpatient eval per Dr. Mosley
Diagnosis
-
Date of Service: October 17, 2024
-
Patient Diagnosis:
Prostate cancer
Radiation cystitis
Gross hematuria
PE
bilateral hydronephrosis
Post Op Day:
Subjective
-
No events overnight
No pain
No hematuria off CBI
Objective
-
Vital Signs
Temp Pulse Resp BP Pulse Ox
98.4 F 80 14 137/68 95
10/17/24 07:48 10/17/24 07:48 10/17/24 07:48 10/17/24 07:48 10/17/24 07:48
Intake and Output
10/16/24 10/17/24 10/18/24
06:59 06:59 06:59
Intake Total 1250 / 1250 1090 / 1090
Output Total 525 / 525 1400 / 1400
Balance 725 / 725 -310 / -310
Intake:
Oral fluids 1200 / 1200 840 / 840
IV fluids (Total) 50 / 50
normosol 50 / 50
Blood Product Amount Infused ( 250 / 250
mL)
Packed Rbc Leukoreduced Unit 250 / 250
[id number]
Output:
Urine, Torres 500 / 500
True Urine Output from CBI 525 / 525 900 / 900
Laboratory Results
10/17/24 07:11
Physical Exam
-
General - well developed, well nourished, no acute distress
Chest - clear
Abdomen - soft, non-tender
Genitalia - normal
Rectal - normal
Skin - warm & dry with no rash
Neuro - AOx3, no motor deficits
Extremities - no clubbing, no cyanosis, no edema
[2024-10-17 08:55] LABS: Blood Urea Nitrogen 42 mg/dl (9-20); Calcium 8.7 mg/dl (8.4-10.2); Carbon Dioxide 21 mmol/L (22-30); Chloride 107 mmol/L (98-107); Estimated Creatinine Clearance 27 ml/min; Glucose 93 mg/dl (70-99); Potassium 4.7 mmol/L (3.5-5.1); Sodium 133 mmol/L (135-145); eGFR 29.90
--- NOTE | 2024-10-17 09:02 | VNURNOTE ---
Chart reviewed. Patient is current with [facility]. Will continue to follow hospital course and DC plans.
[2024-10-17 13:04] LABS: HDL Cholesterol 37 mg/dl; LDL Cholesterol, Calculated 66 mg/dl; Very Low Density Lipoprotein 26 mg/dl (0-30)
--- NOTE | 2024-10-17 13:26 | W.PN.HOSP.TC ---
Today's Communication/Plan
-
see note
Assessment / Plan
Assessment / Plan
Mr. 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
with acute urinary retention. He had a Rodriguez catheter placed during his recent evaluation in the ED for recurrent hematuria and urinary retention, which was 3 days prior to arrival for this admission. However he noticed that his Rodriguez catheter had
drained a few clots and then stopped draining any urine over many hours. He had developed lower abdominal discomfort and a sensation of a full bladder. He was started on continuous bladder irrigation and admitted for further evaluation and
management.
- CT: New mild left hydronephrosis and hydroureter. No obstructing mass nor stone identified. Stable mild right hydronephrosis and hydroureter now with new increased density to the fluid in the right collecting system suggesting hemorrhagic products.
Hematuria with clots and acute urinary retention:
- Secondary to radiation cystitis, recurrent
- Urinary catheter became obstructed after admission due to clots, required extensive flushing by urologist
- s/p cystoscopy, clot evacuation, bladder fulguration, and transurethral resection of the right ureteral orifice on 10/15 with Urology
- CBI has been discontinued. Rodriguez removed today and patient having TOV today.
- Holding Eliquis, on heparin drip
- may need perc nephrostomy for ureteral obstructions - defer to Urology
Acute blood loss anemia in setting of hematuria
- got 1 u prbc, hbg 7.8 - monitor
Pulmonary embolism:
- Recently diagnosed 10/09/2024, started on Eliquis
- Holding Eliquis since this episode of hematuria started
- Anticoagulation for now with IV heparin drip - requires intensive monitoring of PTTs
ETHEL
- Suspect due to obstruction
- Cr remains elevated to 2.1, up from normal ~ 1
- Monitor for improvement following intervention for urinary outlet obstruction
Hyponatremia
Mild metabolic acidosis
- Monitor
DVT prophylaxis: IV heparin
CODE STATUS: Full code
Total time spent l 52 mins
Remains at risk of further kidney dysfunction or recurrent of hematuria. Continue monitoring
Anticipated Discharge: 24 - 48 hours
Subjective/Interval History
-
Date of Service: October 17, 2024
Resting comfortably in bed
No new issues
Objective Data
-
Labs:
Laboratory Results
10/17/24 10/17/24 10/17/24
07:11 14:30 15:15
WBC 9.2
Hgb 7.8 L
Hct 23.8 L
Plt Count 253
APTT 67.7 H Pending Cancelled
Sodium 133 L
Potassium 4.7
Chloride 107
Carbon Dioxide 21 L
BUN 42 H
Creatinine 2.1 H
Glucose 93
Calcium 8.7
Vital Signs:
Vital Signs
Temp Pulse Resp BP Pulse Ox
98.4 F 80 14 137/68 95
10/17/24 07:48 10/17/24 07:48 10/17/24 07:48 10/17/24 07:48 10/17/24 07:48
I&O
10/16/24 10/17/24 10/18/24
06:59 06:59 06:59
Intake Total 1250 / 1250 1090 / 1090
Output Total 525 / 525 1400 / 1400
Balance 725 / 725 -310 / -310
Review of Systems
-
Respiratory: Reports No Symptoms
Cardiac: Reports No Symptoms
Abdomen/GI: Reports No Symptoms
Physical Exam
-
General: No Apparent Distress
HEENT: Negative Oxygen
GI: Soft
Genito-urinary: Negative Rodriguez
Neuro: AO x 3
Psych: Calm
[2024-10-17 14:56] LABS: APTT 96.0 Sec (23.4-35.0)
[2024-10-17 15:18] VITALS: BP 127/60
[2024-10-17] MEDS: HEPARIN 25000 UNITS/250 ML IV (15:26)
--- NOTE | 2024-10-17 20:30 | PTCARENOTE ---
Patient stating blood coming out of tip of penis when attempting to urinate. Patient with urinal filled with less than 50 mls of bright red blood. Abdomen full when palpated. EAN Rodríguez notified. EAN Rodríguez at bedside. Order for H&H
and CBI placed. PTT also drawn, patient on heparin drip. See MAR. 3 way catheter inserted and CBI running. Will continue to monitor.
--- NOTE | 2024-10-17 20:55 | W.PN.UPDATE ---
Update Note
Progress Note Update
Called to see patient, patient w/hematuria, only small void noted to be punch colored approximately 10 mls, and noted small clots. Patient states he feels full and like he has to urinate but unable. Patient abdomen is slightly distended and firm.
TT's on-call Urologist, Dr. Nash, who asked that CBI be restarted. Order placed to restart CBI. Also will monitor H&H Q6H.
Currently torres draining pink tinged liquid. Heparin gtt continued due to PE. Will put heparin gtt on hold, if drop in Hgb.
~ 6 am Hgb 8.4, stable. Heparin gtt continued.
[2024-10-17 21:34] LABS: Hematocrit 24.4 % (39.0-52.0); Hemoglobin 8.4 g/dL (13.0-18.0)
[2024-10-17] MEDS: LIDOCAINE URO-JET 2% 1 SYRINGE TOPICAL (21:44)
[2024-10-17 21:45] LABS: APTT 96.5 Sec (23.4-35.0)
[2024-10-17 23:30] VITALS: BP 138/68
[2024-10-18 03:40] LABS: Hematocrit 24.2 % (39.0-52.0); Hemoglobin 8.1 g/dL (13.0-18.0)
[2024-10-18 06:41] LABS: Hematocrit 25.3 % (39.0-52.0); Hemoglobin 8.4 g/dL (13.0-18.0); Mean Corp Hgb Conc. 33.2 g/dL (33.0-37.0); Mean Corpuscular Volume 89.1 fL (80.0-94.0); Nucleated Red Blood Cells % 0 % (-); Platelet Count 257 10^3/uL (130-400); Red Cell Dist. Width 13.2 % (11.5-14.5)
[2024-10-18 06:53] LABS: APTT 73.6 Sec (23.4-35.0)
[2024-10-18 07:00] VITALS: BP 142/74
[2024-10-18 08:16] LABS: Blood Urea Nitrogen 35 mg/dl (9-20); Calcium 8.8 mg/dl (8.4-10.2); Carbon Dioxide 22 mmol/L (22-30); Chloride 106 mmol/L (98-107); Estimated Creatinine Clearance 34 ml/min; Glucose 102 mg/dl (70-99); Potassium 4.5 mmol/L (3.5-5.1); Sodium 134 mmol/L (135-145); eGFR 38.53
[2024-10-18] MEDS: MIRALAX 17 GRAMS PO (13:33)
[2024-10-18] MEDS: SENOKOT-S 1 TABLET PO (13:33)
--- NOTE | 2024-10-18 14:23 | W.PN.HOSP.TC ---
Today's Communication/Plan
-
see note
Assessment / Plan
Assessment / Plan
Mr. 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
with acute urinary retention. He had a Rodriguez catheter placed during his recent evaluation in the ED for recurrent hematuria and urinary retention, which was 3 days prior to arrival for this admission. However he noticed that his Rodriguez catheter had
drained a few clots and then stopped draining any urine over many hours. He had developed lower abdominal discomfort and a sensation of a full bladder. He was started on continuous bladder irrigation and admitted for further evaluation and
management.
- CT: New mild left hydronephrosis and hydroureter. No obstructing mass nor stone identified. Stable mild right hydronephrosis and hydroureter now with new increased density to the fluid in the right collecting system suggesting hemorrhagic products.
Hematuria with clots and acute urinary retention:
- Secondary to radiation cystitis, recurrent
- Urinary catheter became obstructed after admission due to clots, required extensive flushing by urologist
- s/p cystoscopy, clot evacuation, bladder fulguration, and transurethral resection of the right ureteral orifice on 10/15 with Urology
- CBI has been discontinued. Rodriguez removed today and patient having TOV today.
- Holding Eliquis, on heparin drip
- Patient developed recurrence of hematuria overnight and required to be restarted on heparin drip. Urology discussed potential definitive plan for cystectomy with ileal conduit loop which patient not sure about. Interventional radiology consulted
for bilateral nephrostomy tube placement for urinary diversion. Patient to get procedure in the morning tomorrow. Maintain n.p.o. past midnight.
Acute blood loss anemia in setting of hematuria
- got 1 u prbc, hbg 7.8 - monitor
Pulmonary embolism:
- Recently diagnosed 10/09/2024, started on Eliquis
- Holding Eliquis since this episode of hematuria started
- Anticoagulation for now with IV heparin drip - requires intensive monitoring of PTTs
ETHEL
- Suspect due to obstruction at urovesical junction level
- Cr down to 1.7
- Monitor for improvement following intervention for urinary outlet obstruction
Hyponatremia
Mild metabolic acidosis
- Monitor
DVT prophylaxis: IV heparin
CODE STATUS: Full code
Discussed with Urology/Interventional Radiology
Total time spent : 54 mins
Anticipated Discharge: > 48 hours
Subjective/Interval History
-
Date of Service: October 18, 2024
Patient developed recurrence of hematuria overnight and required to be started on CBI
Urine is currently clear
Denies any lower abdominal discomfort/pain
Objective Data
-
Labs:
Laboratory Results
10/18/24 10/18/24
03:07 06:17
WBC 9.6
Hgb 8.1 L 8.4 L
Hct 24.2 L 25.3 L
Plt Count 257
APTT 73.6 H
Sodium 134 L
Potassium 4.5
Chloride 106
Carbon Dioxide 22
BUN 35 H
Creatinine 1.7 H
Glucose 102 H
Calcium 8.8
Vital Signs:
Vital Signs
Temp Pulse Resp BP Pulse Ox
97.6 F 88 18 142/74 95
10/18/24 07:00 10/18/24 07:00 10/18/24 07:00 10/18/24 07:00 10/18/24 07:00
I&O
10/17/24 10/18/24 10/19/24
06:59 06:59 06:59
Intake Total 1090 / 1090 1440 / 1440
Output Total 1400 / 1400 200 / 200 1700 / 1700
Balance -310 / -310 1240 / 1240 -1700 / -1700
Review of Systems
-
Respiratory: Reports No Symptoms
Cardiac: Reports No Symptoms
Abdomen/GI: Reports No Symptoms
Physical Exam
-
General: No Apparent Distress
HEENT: Negative Oxygen
GI: Soft
Genito-urinary: Continuous Bladder Irrigation (clear urine)
Neuro: AO x 3
Psych: Calm
[2024-10-18 15:19] VITALS: BP 148/67
--- NOTE | 2024-10-18 16:56 | W.PN.SURGUPD ---
Surgical Update
Surgical Update
Discussed case at length with patient and hospitalist
Have advised ileal loop urine diversion v. bilateral percutaneous nephrostomy tubes in an effort to bypass the urinary bladder - the source of the gross hematuria - relieve the ureteral obstruction and eliminate the new, profound urine incontinence
Patient is amenable
Dr. Shipley has been made aware of plan
[2024-10-18] MEDS: HEPARIN 25000 UNITS/250 ML IV (19:12)
[2024-10-18] MEDS: TYLENOL 650 MG PO (20:40)
[2024-10-18 23:30] VITALS: BP 125/72
[2024-10-19 06:00] VITALS: BMI 25.2
[2024-10-19 07:00] VITALS: BP 139/73
[2024-10-19 08:05] LABS: APTT 74.9 Sec (23.4-35.0)
[2024-10-19 09:24] LABS: INR 1.18; PT 15.5 Sec (11.4-14.6)
[2024-10-19 09:37] LABS: Blood Urea Nitrogen 33 mg/dl (9-20); Calcium 9.0 mg/dl (8.4-10.2); Carbon Dioxide 22 mmol/L (22-30); Chloride 105 mmol/L (98-107); Estimated Creatinine Clearance 34 ml/min; Glucose 103 mg/dl (70-99); Potassium 4.7 mmol/L (3.5-5.1); Sodium 133 mmol/L (135-145); eGFR 38.53
--- NOTE | 2024-10-19 10:58 | PN.CDI ---
CDI
- -
CDI:
Physician Documentation Request
Admit Date: 10/14/24 16:31
Dear Doctor Carlos,
Please review the following and provide your response in the progress notes.
Clinical Indicators:
Pt admitted with recurrent radiation Cystitis with hematuria/clots
Documented per ED ' He has noted some blood in the bag since the catheter was placed. He stopped taking his Eliquis last evening. ... Given the anticoagulated status continued bleeding and issues with his catheter will keep in hospital..'
Progress note 10/18, ' Hematuria with clots and acute urinary retention:Secondary to radiation cystitis, recurrent...Holding Eliquis, on heparin drip Patient developed recurrence of hematuria overnight and required to be restarted on heparin drip.
...Acute blood loss anemia in setting of hematuria...'
Please clarify the relationship between these conditions:
Yes, _ABLA/Hematuria__ is related to/associated with/exacerbated by Eliquis /Heparin gtt use ___.
No, _ABLA/Hematuria__ is not related to/associated with/exacerbated by Eliquis /Heparin gtt use ___ but it is due to ___. (Please specify)
Other ( please specify)
Use of terms such as suspected, likely, concern for, or probable (associated with a specific diagnosis that is being evaluated, monitored, or treated as if it exists) are acceptable and can be coded in the inpatient setting, when documented at the
time of discharge.
Thank you,
Patti Galaviz RN
CDI Specialist
[facility]
Please use your independent medical judgment in providing your response.
--- NOTE | 2024-10-19 11:47 | W.PN.HOSP.TC ---
Today's Communication/Plan
-
CBI per urology
for IR guided bilateral nephrostomy tube placement today
maintain on heparin drip
check cbc in the morning
Assessment / Plan
Assessment / Plan
Mr. 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
with acute urinary retention. He had a Rodriguez catheter placed during his recent evaluation in the ED for recurrent hematuria and urinary retention, which was 3 days prior to arrival for this admission. However he noticed that his Rodriguez catheter had
drained a few clots and then stopped draining any urine over many hours. He had developed lower abdominal discomfort and a sensation of a full bladder. He was started on continuous bladder irrigation and admitted for further evaluation and
management.
- CT: New mild left hydronephrosis and hydroureter. No obstructing mass nor stone identified. Stable mild right hydronephrosis and hydroureter now with new increased density to the fluid in the right collecting system suggesting hemorrhagic products.
Hematuria with clots and acute urinary retention:
- Secondary to radiation cystitis, recurrent
- Urinary catheter became obstructed after admission due to clots, required extensive flushing by urologist
- s/p cystoscopy, clot evacuation, bladder fulguration, and transurethral resection of the right ureteral orifice on 10/15 with Urology
- CBI has been discontinued. Rodriguez removed today and patient having TOV today.
- Holding Eliquis, on heparin drip
- Patient developed recurrence of hematuria day before and required to be restarted on heparin drip.
- Urology discussed potential definitive plan for ileal conduit loop which patient not sure about. Interventional radiology consulted for bilateral nephrostomy tube placement for urinary diversion.
Acute blood loss anemia in setting of hematuria
- got 1 u prbc, check cbc in the morning.
Pulmonary embolism:
- Recently diagnosed 10/09/2024, started on Eliquis
- Holding Eliquis since this episode of hematuria started
- Anticoagulation for now with IV heparin drip - requires intensive monitoring of PTTs
ETHEL
- Suspect due to obstruction at urovesical junction level
- Cr down to 1.7
- Monitor for improvement following intervention for urinary outlet obstruction
Hyponatremia
Mild metabolic acidosis
- Monitor
DVT prophylaxis: IV heparin
CODE STATUS: Full code
Anticipated Discharge: 24 - 48 hours
Subjective/Interval History
-
Date of Service: October 19, 2024
remains on CBI with minimal blood tinged urine draining
Objective Data
-
Labs:
Laboratory Results
10/19/24 10/19/24
07:01 09:01
PT 15.5 H Cancelled
INR 1.18 Cancelled
APTT 74.9 H
Sodium 133 L
Potassium 4.7
Chloride 105
Carbon Dioxide 22
BUN 33 H
Creatinine 1.7 H
Glucose 103 H
Calcium 9.0
Vital Signs:
Vital Signs
Temp Pulse Resp BP Pulse Ox
98.6 F 88 16 139/73 96
10/19/24 07:00 10/19/24 07:00 10/19/24 07:00 10/19/24 07:00 10/19/24 07:00
I&O
10/18/24 10/19/24 10/20/24
06:59 06:59 06:59
Intake Total 1440 / 1440 600 / 600 480 / 480
Output Total 200 / 200 4000 / 4000 1100 / 1100
Balance 1240 / 1240 -3400 / -3400 -620 / -620
Review of Systems
-
Respiratory: Reports No Symptoms
Cardiac: Reports No Symptoms
Abdomen/GI: Reports No Symptoms
Physical Exam
-
General: No Apparent Distress
HEENT: Negative Oxygen
GI: Soft
Genito-urinary: Continuous Bladder Irrigation (clear urine)
Neuro: AO x 3
Psych: Calm
[2024-10-19 15:00] VITALS: BP 160/91
[2024-10-19 15:35] VITALS: BP 165/80; BP_SYST 85
--- NOTE | 2024-10-19 16:23 | CM ---
Pt remains on Heparin gtt.
CBI running.
Pt to IR today for gustavo nephrostomy tube placements.
PLAN Home with [facility]N
--- NOTE | 2024-10-19 18:20 | W.PN.UPDATE ---
Update Note
Progress Note Update
Bilateral percutaneous nephrostomies placed, patient tolerated well.
OK to resume anticoagulation tomorrow morning.
[2024-10-19 18:40] VITALS: BP 140/85
--- NOTE | 2024-10-19 19:34 | PTCARENOTE ---
CBI capped for IR procedure at 1530. Restarted at 1900 when patient returned to floor. Heparin ggt held per wishes of interventional radiologist at 1200hrs for procedure at 1600hrs and to be held overnight post procedure and restarted in am at
hospitalist discretion.
[2024-10-19] MEDS: TYLENOL 650 MG PO (21:04)
[2024-10-19] MEDS: ULTRAM 25 MG PO (23:35)
[2024-10-19 23:45] VITALS: BP 167/115
[2024-10-20] MEDS: DILAUDID 0.25 MG IV (00:40)
[2024-10-20 00:46] VITALS: BP 179/104
[2024-10-20 06:00] VITALS: BMI 25.4
[2024-10-20 06:39] LABS: Blood Urea Nitrogen 29 mg/dl (9-20); Calcium 8.8 mg/dl (8.4-10.2); Carbon Dioxide 22 mmol/L (22-30); Chloride 104 mmol/L (98-107); Estimated Creatinine Clearance 36 ml/min; Glucose 122 mg/dl (70-99); Potassium 5.1 mmol/L (3.5-5.1); Sodium 135 mmol/L (135-145); eGFR 41.44
[2024-10-20 06:44] LABS: Hematocrit 29.1 % (39.0-52.0); Hemoglobin 9.6 g/dL (13.0-18.0); Mean Corp Hgb Conc. 33.0 g/dL (33.0-37.0); Mean Corpuscular Volume 86.6 fL (80.0-94.0); Platelet Count 367 10^3/uL (130-400); Red Cell Dist. Width 13.4 % (11.5-14.5)
[2024-10-20 07:00] VITALS: BP 158/77
--- NOTE | 2024-10-20 10:40 | W.PN.URO.CBU ---
Today's Communication / Plan
-
Remove torres
Trend any residual bleeding post b/l PCN placement
Outpatient follow up with Dr. Mosley for additional counseling
Assessment / Plan
-
89M with recurrent/refractory hematuria due to radiation cystitis, ETHEL
On Eliquis for new subsegmental PE
Bilateral hydronephrosis due to distal ureteral obstruction
- s/p OR 05/15/24 for cystoscopy, extensive vaporization and fulguration of entire bladder trigone and bladder neck, resection of R ureteral orifice
- Hematuria recurrent after trial of void this week
- ETHEL/worsening renal function due to R ureteral obstruction now with new mild L hydronephrosis
- Ureteral obstruction due to severe radiation cystitis and bladder wall thickening. Attempt made to resect over the R ureteral orifice through nearly 1cm of thickened bladder wall with ureter still not draining
- Indwelling ureteral stents would likely only exacerbate recurrent bleeding issues
- Given ureteral obstruction and recurrent refractory bleeding, b/l PCNs were placed 10/19/24
- R tube flushed this AM due to some clot, draining well.
- Bladder bleeding resolved completely today - remove torres, trend sx. Patient will likely not void at all from bladder.
Trend any residual bleeding on heparin
Switch to oral AC prior to discharge
Prostate cancer
- s/p surgery and radiation with PSA increasing slowly over several years and has been managed with intermittent ADT by Dr. Mosley
- Prostate cancer may contribute to distal ureteral obstruction
- Consider further outpatient eval per Dr. Mosley
Diagnosis
-
Date of Service: October 20, 2024
-
Patient Diagnosis:
Prostate cancer
Radiation cystitis
Gross hematuria
PE
bilateral hydronephrosis
Post Op Day:
Subjective
-
No issues s/p PCNs
Objective
-
Vital Signs
Temp Pulse Resp BP Pulse Ox
101.0 F H 135 18 158/77 95
10/20/24 07:00 10/20/24 07:00 10/20/24 07:00 10/20/24 07:00 10/20/24 07:00
Intake and Output
10/19/24 10/20/24 10/21/24
06:59 06:59 06:59
Intake Total 600 / 600 1080 / 1080
Output Total 4000 / 4000 2400 / 2400 1230 / 1230
Balance -3400 / -3400 -1320 / -1320 -1230 / -1230
Intake:
Oral fluids 600 / 600 480 / 480
Amount instilled into Urinary 600 / 600
Drain (Total)
Left Nephrostomy 450 / 450
Right Nephrostomy 150 / 150
Output:
True Urine Output from CBI 4000 / 4000 2400 / 2400 1230 / 1230
Laboratory Results
10/20/24 05:41
10/20/24 05:41
Physical Exam
-
General - well developed, well nourished, no acute distress
Chest - clear
Abdomen - soft, non-tender
PCNs in place, bloody on R
Torres clear with CBI slow drip
[2024-10-20] MEDS: ULTRAM 50 MG PO ×2 (12:10→21:05)
--- NOTE | 2024-10-20 13:31 | W.PN.HOSP.TC ---
Addendum entered and electronically signed by Macario Gonzalez MD 10/20/24 15:25:
Yes hematuria is aggravated by Eliquis use
Original Note:
Today's Communication/Plan
-
see note
Assessment / Plan
Assessment / Plan
Mr. 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
with acute urinary retention. He had a Rodriguez catheter placed during his recent evaluation in the ED for recurrent hematuria and urinary retention, which was 3 days prior to arrival for this admission. However he noticed that his Rodriguez catheter had
drained a few clots and then stopped draining any urine over many hours. He had developed lower abdominal discomfort and a sensation of a full bladder. He was started on continuous bladder irrigation and admitted for further evaluation and
management.
- CT: New mild left hydronephrosis and hydroureter. No obstructing mass nor stone identified. Stable mild right hydronephrosis and hydroureter now with new increased density to the fluid in the right collecting system suggesting hemorrhagic products.
Hematuria with clots and acute urinary retention:
s/p Bilateral nephrostomy tube
- Secondary to radiation cystitis, recurrent
- Urinary catheter became obstructed after admission due to clots, required extensive flushing by urologist
- s/p cystoscopy, clot evacuation, bladder fulguration, and transurethral resection of the right ureteral orifice on 10/15 with Urology
- CBI has been discontinued. Rodriguez removed today and patient having TOV today.
- Holding Eliquis, on heparin drip
- Patient developed recurrence of hematuria day before and required to be restarted on heparin drip.
- Patient with bilateral nephrostomy tube, right side tube draining blood containing urine. Left clear. Continue monitoring
- f/u hbg level
Acute blood loss anemia in setting of hematuria
- got 1 u PRBC, check cbc in the morning.
Fever episode
Atelectasis of lower lung
- possible error per RN as quick recheck showed normal temp. Continue monitoring
- have some increased phelgm, IS ordered for possible atelectasis
- if spikes fever again will need xr and abx for pulm organism
Pulmonary embolism:
- Recently diagnosed 10/09/2024, started on Eliquis
- Holding Eliquis since this episode of hematuria started
- Anticoagulation for now with IV heparin drip - requires intensive monitoring of PTTs
ETHEL
- Suspect due to obstruction at urovesical junction level
- Cr down to 1.7
- Monitor for improvement following intervention for urinary outlet obstruction
Hyponatremia
Mild metabolic acidosis
- Monitor
DVT prophylaxis: IV heparin
CODE STATUS: Full code
Total time spent : 55 mins
Anticipated Discharge: 24 - 48 hours
Subjective/Interval History
-
Date of Service: October 20, 2024
Having some cough with phlegm production
afebrile
No other issues reported overnight
Objective Data
-
Labs:
Laboratory Results
10/20/24
05:41
WBC 14.4 H
Hgb 9.6 L
Hct 29.1 L
Plt Count 367 D
Sodium 135
Potassium 5.1
Chloride 104
Carbon Dioxide 22
BUN 29 H
Creatinine 1.6 H
Glucose 122 H
Calcium 8.8
Vital Signs:
Vital Signs
Temp Pulse Resp BP Pulse Ox
101.0 F H 135 18 158/77 95
10/20/24 07:00 10/20/24 07:00 10/20/24 07:00 10/20/24 07:00 10/20/24 07:00
I&O
10/19/24 10/20/24 10/21/24
06:59 06:59 06:59
Intake Total 600 / 600 1080 / 1080
Output Total 4000 / 4000 2400 / 2400 1230 / 1230
Balance -3400 / -3400 -1320 / -1320 -1230 / -1230
Review of Systems
-
Respiratory: Reports Cough
Cardiac: Reports No Symptoms
Abdomen/GI: Reports No Symptoms
Physical Exam
-
General: No Apparent Distress
HEENT: Negative Oxygen
GI: Soft
Genito-urinary: Continuous Bladder Irrigation (clear urine)
Neuro: AO x 3
Psych: Calm
[2024-10-20] MEDS: MIRALAX 17 GRAMS PO (14:50)
[2024-10-20] MEDS: SENOKOT-S 1 TABLET PO (14:50)
[2024-10-20] MEDS: HEPARIN 25000 UNITS/250 ML IV (14:56)
[2024-10-20 15:00] VITALS: BP 99/55
[2024-10-20 16:00] LABS: APTT 45.9 Sec (23.4-35.0)
--- NOTE | 2024-10-20 17:48 | CM ---
Pt remains on Heparin gtt.
Pt gustavo nephrostomy tube placements.
spoke with patient in room he requested [facility] [place].
His [place] will drive him [place]
PLAN Home with [facility]
[2024-10-20 23:17] LABS: APTT 164.7 Sec (23.4-35.0)
[2024-10-20 23:42] VITALS: BP 119/61
[2024-10-21 05:59] VITALS: BMI 24.9
[2024-10-21 07:00] VITALS: BP 141/71
[2024-10-21 07:21] LABS: APTT 143.1 Sec (23.4-35.0)
[2024-10-21 07:32] LABS: Blood Urea Nitrogen 41 mg/dl (9-20); Calcium 8.7 mg/dl (8.4-10.2); Carbon Dioxide 24 mmol/L (22-30); Chloride 101 mmol/L (98-107); Estimated Creatinine Clearance 30 ml/min; Glucose 102 mg/dl (70-99); Potassium 4.6 mmol/L (3.5-5.1); Sodium 132 mmol/L (135-145); eGFR 33.72
[2024-10-21] MEDS: ULTRAM 50 MG PO ×2 (10:12→22:16)
[2024-10-21] MEDS: SENOKOT-S 1 TABLET PO ×2 (10:12→17:48)
[2024-10-21] MEDS: HEPARIN 25000 UNITS/250 ML IV (10:13)
--- NOTE | 2024-10-21 10:16 | W.PN.URO.CBU ---
Today's Communication / Plan
-
no new input
Assessment / Plan
-
89M with recurrent/refractory hematuria due to radiation cystitis, ETHEL
On Eliquis for new subsegmental PE
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
- s/p OR 05/15/24 for cystoscopy, extensive vaporization and fulguration of entire bladder trigone and bladder neck, resection of R ureteral orifice
b/l PCNs were placed 10/19/24
Prostate cancer
- s/p surgery and radiation with PSA increasing slowly over several years and has been managed with intermittent ADT by Dr. Mosley
- Prostate cancer may contribute to distal ureteral obstruction
- Consider further outpatient eval per Dr. Mosley
Diagnosis
-
Date of Service: October 21, 2024
-
Patient Diagnosis:
Prostate cancer
Radiation cystitis
Gross hematuria
PE
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
Subjective
-
comfortable with bilateral PCN tubes
no urge to void since PCNs placed
Objective
-
Vital Signs
Temp Pulse Resp BP Pulse Ox
98.1 F 97 18 141/71 95
10/21/24 07:00 10/21/24 07:00 10/21/24 07:00 10/21/24 07:00 10/21/24 07:00
Intake and Output
10/20/24 10/21/24 10/22/24
06:59 06:59 06:59
Intake Total 1080 / 1080 320 / 320
Output Total 2400 / 2400 2054
Balance -1320 / -1320 -1735 / -1735
Intake:
Oral fluids 480 / 480 320 / 320
Amount instilled into Urinary 600 / 600
Drain (Total)
Left Nephrostomy 450 / 450
Right Nephrostomy 150 / 150
Output:
Urinary Drain Output (Total) 825 / 825
Left Nephrostomy 675 / 675
Right Nephrostomy 150 / 150
True Urine Output from CBI 2400 / 2400 1230 / 1230
Laboratory Results
10/21/24 06:30
Physical Exam
-
General - no acute distress
Right PCN tube -- bloody urine
Left PCN tube -- sukhjinder urine
[2024-10-21 12:26] LABS: Hematocrit 25.5 % (39.0-52.0); Hemoglobin 8.5 g/dL (13.0-18.0); Mean Corp Hgb Conc. 33.3 g/dL (33.0-37.0); Mean Corpuscular Volume 86.7 fL (80.0-94.0); Platelet Count 291 10^3/uL (130-400); Red Cell Dist. Width 13.5 % (11.5-14.5)
--- NOTE | 2024-10-21 13:36 | W.PN.HOSP.TC ---
Today's Communication/Plan
-
see note
Assessment / Plan
Assessment / Plan
Mr. 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
with acute urinary retention. He had a Rodriguez catheter placed during his recent evaluation in the ED for recurrent hematuria and urinary retention, which was 3 days prior to arrival for this admission. However he noticed that his Rodriguez catheter had
drained a few clots and then stopped draining any urine over many hours. He had developed lower abdominal discomfort and a sensation of a full bladder. He was started on continuous bladder irrigation and admitted for further evaluation and
management.
CT: New mild left hydronephrosis and hydroureter. No obstructing mass nor stone identified. Stable mild right hydronephrosis and hydroureter now with new increased density to the fluid in the right collecting system suggesting hemorrhagic products.
Hematuria with clots and acute urinary retention:
s/p Bilateral nephrostomy tube
- Secondary to radiation cystitis, recurrent
- Urinary catheter became obstructed after admission due to clots, required extensive flushing by urologist
- s/p cystoscopy, clot evacuation, bladder fulguration, and transurethral resection of the right ureteral orifice on 10/15 with Urology
- CBI was discontinued and Rodriguez removed although patient developed hematuria again and Rodriguez was replaced.
- Patient got bilateral nephrostomy tube placed and Rodriguez has been removed a second time
- For last 48hrs right side nephro tube draining blood containing urine. Left clear. will hold heparin drip in light of conitnuous bleeding from nephrostomy tube, Hbg has drifted down to 8.5
Acute blood loss anemia in setting of hematuria
- got 1 u PRBC,
- Hemoglobin drifted down to 8.5
Fever episode on 10/19
Atelectasis of lower lung
- possible error per RN as quick recheck showed normal temp. Continue monitoring
- have some increased phelgm, IS ordered for possible atelectasis
- Check cxr 2 view
Pulmonary embolism:
- Recently diagnosed 10/09/2024, started on Eliquis
- Holding Eliquis since this episode of hematuria started
- Anticoagulation for now with IV heparin drip - requires intensive monitoring of PTTs
ETHEL
- Suspect due to obstruction at urovesical junction level
- Expect improvement post bilateral nephrostomy tube placement.
Hyponatremia
Mild metabolic acidosis
- Monitor
DVT prophylaxis: hold heparin drip
CODE STATUS: Full code
Anticipated Discharge: 24 - 48 hours
Subjective/Interval History
-
Date of Service: October 21, 2024
Continues to have hematuria on right nephrostomy tube
Afebrile
Continues to have increased secretion and some cough
Objective Data
-
Labs:
Laboratory Results
10/21/24 10/21/24
06:30 15:00
WBC 11.7 H
Hgb 8.5 L
Hct 25.5 L
Plt Count 291 D
APTT 143.1 H Pending
Sodium 132 L
Potassium 4.6
Chloride 101
Carbon Dioxide 24
BUN 41 H
Creatinine 1.9 H
Glucose 102 H
Calcium 8.7
Vital Signs:
Vital Signs
Temp Pulse Resp BP Pulse Ox
98.1 F 97 18 141/71 95
10/21/24 07:00 10/21/24 07:00 10/21/24 07:00 10/21/24 07:00 10/21/24 07:00
I&O
10/20/24 10/21/24 10/22/24
06:59 06:59 06:59
Intake Total 1080 / 1080 320 / 320
Output Total 2400 / 2400 2054
Balance -1320 / -1320 -1735 / -1735
Review of Systems
-
Respiratory: Reports Cough; Denies Trouble Breathing or Wheezing
Cardiac: Reports No Symptoms
Abdomen/GI: Reports No Symptoms
Physical Exam
-
General: No Apparent Distress
HEENT: Negative Oxygen
Respiratory: Rhonchi
GI: Soft
Genito-urinary: Nephrostomy Tubes (Right - blood containing urine, left - clear sukhjinder urine)
Neuro: Awake, Alert, Oriented and No Motor Deficits
Psych: Calm
[2024-10-21 15:00] VITALS: BP 120/57
[2024-10-21] MEDS: DULCOLAX 10 MG RECTAL (17:48)
[2024-10-21] MEDS: MIRALAX 17 GRAMS PO (17:48)
[2024-10-21 23:00] VITALS: BP 118/64
[2024-10-22] MEDS: ULTRAM 50 MG PO ×3 (04:43→18:33)
[2024-10-22 06:00] VITALS: BMI 25.5
[2024-10-22 06:23] LABS: Hematocrit 24.3 % (39.0-52.0); Hemoglobin 7.9 g/dL (13.0-18.0); Mean Corp Hgb Conc. 32.5 g/dL (33.0-37.0); Mean Corpuscular Volume 87.4 fL (80.0-94.0); Platelet Count 294 10^3/uL (130-400); Red Cell Dist. Width 13.4 % (11.5-14.5)
[2024-10-22 07:00] VITALS: BP 110/68
[2024-10-22 07:09] LABS: Blood Urea Nitrogen 41 mg/dl (9-20); Calcium 8.7 mg/dl (8.4-10.2); Carbon Dioxide 24 mmol/L (22-30); Chloride 100 mmol/L (98-107); Estimated Creatinine Clearance 36 ml/min; Glucose 103 mg/dl (70-99); Potassium 4.4 mmol/L (3.5-5.1); Sodium 131 mmol/L (135-145); eGFR 41.44
--- NOTE | 2024-10-22 11:26 | W.PN.URO.CBU ---
Today's Communication / Plan
-
no new input
Assessment / Plan
-
89M with recurrent/refractory hematuria due to radiation cystitis, ETHEL
On Eliquis for new subsegmental PE
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
- s/p OR 05/15/24 for cystoscopy, extensive vaporization and fulguration of entire bladder trigone and bladder neck, resection of R ureteral orifice
b/l PCNs were placed 10/19/24
Prostate cancer
- s/p surgery and radiation with PSA increasing slowly over several years and has been managed with intermittent ADT by Dr. Mosley
- Prostate cancer may contribute to distal ureteral obstruction
- Consider further outpatient eval per Dr. Mosley
Diagnosis
-
Date of Service: October 22, 2024
-
Patient Diagnosis:
Prostate cancer
Radiation cystitis
Gross hematuria
PE
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
Objective
-
Vital Signs
Temp Pulse Resp BP Pulse Ox
98.1 F 87 17 110/68 95
10/22/24 07:00 10/22/24 07:00 10/22/24 07:00 10/22/24 07:00 10/22/24 07:00
Intake and Output
10/21/24 10/22/24 10/23/24
06:59 06:59 06:59
Intake Total 320 / 320 500 / 500
Output Total 2054 1000 / 1000
Balance -1735 / -1735 -500 / -500
Intake:
Oral fluids 320 / 320 500 / 500
Output:
Urinary Drain Output (Total) 825 / 825 1000 / 1000
Left Nephrostomy 675 / 675 650 / 650
Right Nephrostomy 150 / 150 350 / 350
True Urine Output from CBI 1230 / 1230
Laboratory Results
10/22/24 06:15
10/22/24 06:15
Physical Exam
-
General - well developed, well nourished, no acute distress
Chest - clear bilaterally
Abdomen - soft, non-tender, positive bowel sounds, no CVAT, no incisional pain or distention
Genitalia - normal
Rectal - normal
Skin - warm & dry with no rash
Neuro - AOx3, no motor deficits
Extremities - no clubbing, no cyanosis, no edema
Incision - clean, dry
Dressing - clean, dry, intact
[2024-10-22] MEDS: TYLENOL 650 MG PO (11:30)
--- NOTE | 2024-10-22 12:38 | W.PN.HOSP.TC ---
Today's Communication/Plan
-
monitor for resolution of hematuria
f/u hbg level
eliquis resumption once hematuria improved
Assessment / Plan
Assessment / Plan
Mr. 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
with acute urinary retention. He had a Rodriguez catheter placed during his recent evaluation in the ED for recurrent hematuria and urinary retention, which was 3 days prior to arrival for this admission. However he noticed that his Rodriguez catheter had
drained a few clots and then stopped draining any urine over many hours. He had developed lower abdominal discomfort and a sensation of a full bladder. He was started on continuous bladder irrigation and admitted for further evaluation and
management.
CT: New mild left hydronephrosis and hydroureter. No obstructing mass nor stone identified. Stable mild right hydronephrosis and hydroureter now with new increased density to the fluid in the right collecting system suggesting hemorrhagic products.
Hematuria with clots and acute urinary retention:
s/p Bilateral nephrostomy tube
- Secondary to radiation cystitis, recurrent
- Urinary catheter became obstructed after admission due to clots, required extensive flushing by urologist
- s/p cystoscopy, clot evacuation, bladder fulguration, and transurethral resection of the right ureteral orifice on 10/15 with Urology
- CBI was discontinued and Rodriguez removed although patient developed hematuria again and Rodriguez was replaced.
- Patient got bilateral nephrostomy tube placed and Rodriguez has been removed a second time
- For last 48hrs right side nephro tube draining blood containing urine. Left clear. Holding heparin drip from 9/6 AM. bleeding from nephrostomy tube, Hbg has drifted down to 8.
- Hematuria has cleared somewhat today, monitor.
Acute blood loss anemia in setting of hematuria
- got 1 u PRBC,
- Hemoglobin drifted down to 8.5
Fever episode on 10/19
Atelectasis of lower lung
- possible error per RN as quick recheck showed normal temp. Continue monitoring
- have some increased phelgm, IS ordered for possible atelectasis
- CXR clear.
Pulmonary embolism:
- Recently diagnosed 10/09/2024, started on Eliquis
- Holding Eliquis since this episode of hematuria started
- Anticoagulation for now with IV heparin drip - requires intensive monitoring of PTTs
ETHEL
- Suspect due to obstruction at urovesical junction level
- Expect improvement post bilateral nephrostomy tube placement.
Hyponatremia
Mild metabolic acidosis
- Monitor
DVT prophylaxis: hold heparin drip
CODE STATUS: Full code
Anticipated Discharge: 24 - 48 hours
Subjective/Interval History
-
Date of Service: October 22, 2024
no new complains overnight
have still blood in bag right nephrostomy
afebrile
Objective Data
-
Labs:
Laboratory Results
10/22/24
06:15
WBC 9.4
Hgb 7.9 L
Hct 24.3 L
Plt Count 294
Sodium 131 L
Potassium 4.4
Chloride 100
Carbon Dioxide 24
BUN 41 H
Creatinine 1.6 H
Glucose 103 H
Calcium 8.7
Vital Signs:
Vital Signs
Temp Pulse Resp BP Pulse Ox
98.1 F 87 17 110/68 95
10/22/24 07:00 10/22/24 07:00 10/22/24 07:00 10/22/24 07:00 10/22/24 07:00
I&O
10/21/24 10/22/24 10/23/24
06:59 06:59 06:59
Intake Total 320 / 320 500 / 500
Output Total 2054 1000 / 1000
Balance -1735 / -1735 -500 / -500
Review of Systems
-
Respiratory: Reports No Symptoms
Cardiac: Reports No Symptoms
Abdomen/GI: Reports No Symptoms
Physical Exam
-
General: No Apparent Distress
HEENT: Negative Oxygen
Respiratory: Rhonchi
GI: Soft
Genito-urinary: Nephrostomy Tubes (Right - blood containing urine, left - clear sukhjinder urine)
Neuro: Awake, Alert, Oriented and No Motor Deficits
Psych: Calm
[2024-10-22 15:00] VITALS: BP 116/63
[2024-10-22] MEDS: SENOKOT-S 1 TABLET PO (18:33)
[2024-10-22 23:20] VITALS: BP 117/58
[2024-10-23] MEDS: ULTRAM 50 MG PO ×3 (04:35→21:40)
[2024-10-23 04:50] VITALS: BMI 24.7
[2024-10-23 07:00] VITALS: BP 135/68
[2024-10-23 09:55] LABS: Hematocrit 24.0 % (39.0-52.0); Hemoglobin 8.0 g/dL (13.0-18.0)
--- NOTE | 2024-10-23 12:38 | W.PN.HOSP.TC ---
Today's Communication/Plan
-
Assessment / Plan
Assessment / Plan
General: No Apparent Distress, Comfortable and Conversant
HEENT: NormoCephalic, Moist mucous membranes, Atraumatic
Respiratory: Clear and Non Labored Respirations
Cardiac: S1/S2 and Regular Rhythm; No Rub or Gallop
GI: Soft, Non Tender, Non Distended and Normal Bowel Sounds
Musculoskeletal: No Edema, no deformity
: NO Rodriguez, bilateral nephrostomy tubes, right nephrostomy tube with dark blood mixed with urine
Neuro: Awake, Alert, Nonfocal/grossly intact
Psych: Calm and Intact Judgment/Insight
Mr. 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
with acute urinary retention. He had a Rodriguez catheter placed during his recent evaluation in the ED for recurrent hematuria and urinary retention, which was 3 days prior to arrival for this admission. However he noticed that his Rodriguez catheter had
drained a few clots and then stopped draining any urine over many hours. He had developed lower abdominal discomfort and a sensation of a full bladder. He was started on continuous bladder irrigation and admitted for further evaluation and
management.
CT: New mild left hydronephrosis and hydroureter. No obstructing mass nor stone identified. Stable mild right hydronephrosis and hydroureter now with new increased density to the fluid in the right collecting system suggesting hemorrhagic products.
Hematuria with clots and acute urinary retention:
s/p Bilateral nephrostomy tube
- Secondary to radiation cystitis, recurrent
- Urinary catheter became obstructed after admission due to clots, required extensive flushing by urologist
- s/p cystoscopy, clot evacuation, bladder fulguration, and transurethral resection of the right ureteral orifice on 10/15 with Urology
- CBI was discontinued and Rodriguez removed although patient developed hematuria again and Rodriguez was replaced.
- Patient got bilateral nephrostomy tube placed and Rodriguez has been removed a second time
- For last 72hrs right side nephro tube draining blood containing urine. Left clear.
- Holding heparin drip from 9/6 AM. bleeding from nephrostomy tube, Hbg has drifted down to 8 but now stable.
- Hematuria has cleared somewhat today, dark red blood mixed with urine, will continue to monitor.
Acute blood loss anemia in setting of hematuria
- got 1 u PRBC,
- Hemoglobin drifted down to 8.0 however remained stable
Fever episode on 10/19
Atelectasis of lower lung
- possible error per RN as quick recheck showed normal temp. Continue monitoring
- have some increased phlegm, IS ordered for possible atelectasis
- CXR clear.
Pulmonary embolism:
- Recently diagnosed 10/09/2024, started on Eliquis
- Holding Eliquis since this episode of hematuria started
ETHEL
- Suspect due to obstruction at urovesical junction level
- Renal function has improved post bilateral nephrostomy tube placement.
- Last creatinine 1.6, recent baseline appears around 1.2
Hyponatremia
Mild metabolic acidosis
- Monitor
DVT prophylaxis: SCDs
CODE STATUS: Full code
Total time spent on today's encounter was 52 minutes
Anticipated Discharge: 24 - 48 hours
Subjective/Interval History
-
Date of Service: October 23, 2024
Patient was seen and examined at bedside this morning. Still has dark bloodurine from right nephrostomy tube. Continuing to hold anticoagulation for now. Hemoglobin stable at 8.
Objective Data
-
Labs:
Laboratory Results
10/23/24
09:32
Hgb 8.0 L
Hct 24.0 L
Vital Signs:
Vital Signs
Temp Pulse Resp BP Pulse Ox
97.7 F 93 18 135/68 94
10/23/24 07:00 10/23/24 07:00 10/23/24 07:00 10/23/24 07:00 10/23/24 07:00
I&O
10/22/24 10/23/24 10/24/24
06:59 06:59 06:59
Intake Total 500 / 500 970 / 970
Output Total 1000 / 1000 400 / 400 200 / 200
Balance -500 / -500 570 / 570 -200 / -200
Review of Systems
-
History Source: Patient
All other systems: Reviewed and negative
Genitourinary: Reports Flank Pain
Physical Exam
-
General: No Apparent Distress
[2024-10-23 15:00] VITALS: BP 139/77
--- NOTE | 2024-10-23 17:14 | CM ---
Spoke with patient in room .
Pt has gustavo nephrostomy tubes draining bloody drainage.
Pt will be dc with [facility] .
His Olayinka will drive him home.
IMM reviewed signed on chart,
PLAN Home with [facility]
[2024-10-24] VITALS: BP 128/63
[2024-10-24 06:16] VITALS: BMI 24.7
[2024-10-24] MEDS: ULTRAM 50 MG PO ×3 (07:08→23:34)
[2024-10-24 07:42] VITALS: BP 141/71
[2024-10-24 09:23] LABS: Hematocrit 26.2 % (39.0-52.0); Hemoglobin 8.4 g/dL (13.0-18.0)
--- NOTE | 2024-10-24 10:51 | W.PN.HOSP.TC ---
Today's Communication/Plan
-
Assessment / Plan
Assessment / Plan
General: No Apparent Distress, Comfortable and Conversant
HEENT: NormoCephalic, Moist mucous membranes, Atraumatic
Respiratory: Clear and Non Labored Respirations
Cardiac: S1/S2 and Regular Rhythm; No Rub or Gallop
GI: Soft, Non Tender, Non Distended and Normal Bowel Sounds
Musculoskeletal: No Edema, no deformity
: NO Rodriguez, bilateral nephrostomy tubes, right nephrostomy tube with dark blood mixed with urine
Neuro: Awake, Alert, Nonfocal/grossly intact
Psych: Calm and Intact Judgment/Insight
Mr. 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
with acute urinary retention. He had a Rodriguez catheter placed during his recent evaluation in the ED for recurrent hematuria and urinary retention, which was 3 days prior to arrival for this admission. However he noticed that his Rodriguez catheter had
drained a few clots and then stopped draining any urine over many hours. He had developed lower abdominal discomfort and a sensation of a full bladder. He was started on continuous bladder irrigation and admitted for further evaluation and
management.
CT: New mild left hydronephrosis and hydroureter. No obstructing mass nor stone identified. Stable mild right hydronephrosis and hydroureter now with new increased density to the fluid in the right collecting system suggesting hemorrhagic products.
Hematuria with clots and acute urinary retention:
s/p Bilateral nephrostomy tube
- Secondary to radiation cystitis, recurrent
- Urinary catheter became obstructed after admission due to clots, required extensive flushing by urologist
- s/p cystoscopy, clot evacuation, bladder fulguration, and transurethral resection of the right ureteral orifice on 10/15 with Urology
- CBI was discontinued and Rodriguez removed although patient developed hematuria again and Rodriguez was replaced.
- Patient got bilateral nephrostomy tubes placed and Rodriguez has now been removed a second time
- For last 4 days right side nephro tube draining bloody urine. Left clear.
- Holding heparin drip from 9/6 AM. bleeding from nephrostomy tube, Hbg has drifted down to 8 but now stable.
- Hematuria has cleared somewhat today, will continue to monitor
- Would prefer to restart anticoagulation as soon as possible considering PE
Acute blood loss anemia in setting of hematuria
- got 1 u PRBC,
- Hemoglobin drifted down to 8.0 however now remains stable
Fever episode on 10/19
Atelectasis of lower lung
- possible error per RN as quick recheck showed normal temp. Continue monitoring
- have some increased phlegm, IS ordered for possible atelectasis
- CXR clear.
Pulmonary embolism:
- Recently diagnosed 10/09/2024, started on Eliquis
- Holding Eliquis since this episode of hematuria started
ETHEL
- Suspect due to obstruction at urovesical junction level
- Renal function has improved post bilateral nephrostomy tube placement.
- Last creatinine 1.6, recent baseline appears around 1.2
Hyponatremia
Mild metabolic acidosis
- Monitor
DVT prophylaxis: SCDs
CODE STATUS: Full code
Total time spent on today's encounter was 54 minutes
Anticipated Discharge: 24 - 48 hours
Subjective/Interval History
-
Date of Service: October 24, 2024
Patient was seen and examined at bedside this morning. Remains comfortable other than PCN insertion sites. Right PCN still draining bloody urine although appears to be clearing slightly today.
Objective Data
-
Labs:
Laboratory Results
10/24/24
08:57
Hgb 8.4 L
Hct 26.2 L
Vital Signs:
Vital Signs
Temp Pulse Resp BP Pulse Ox
98.3 F 82 18 141/71 94
10/24/24 07:42 09/09/25 07:42 10/24/24 07:42 10/24/24 07:42 10/24/24 07:42
I&O
10/23/24 10/24/24 10/25/24
06:59 06:59 06:59
Intake Total 970 / 970 600 / 600
Output Total 400 / 400 725 / 725
Balance 570 / 570 -125 / -125 -
Review of Systems
-
History Source: Patient
All other systems: Reviewed and negative
Genitourinary: Reports Flank Pain
Physical Exam
-
General: No Apparent Distress
--- NOTE | 2024-10-24 12:53 | W.PN.URO.CBU ---
Today's Communication / Plan
-
Patient cleared for discharge from standpoint
Spent time discussing role of lieal loop urine diversion to help improve this patient's quality of life
Will discuss further as inpatient/outpatient
Assessment / Plan
-
89M with recurrent/refractory hematuria due to radiation cystitis, ETHEL
On Eliquis for new subsegmental PE
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
- s/p OR 05/15/24 for cystoscopy, extensive vaporization and fulguration of entire bladder trigone and bladder neck, resection of R ureteral orifice
b/l PCNs were placed 10/19/24
Prostate cancer
- s/p surgery and radiation with PSA increasing slowly over several years and has been managed with intermittent ADT by Dr. Mosley
- Prostate cancer may contribute to distal ureteral obstruction
- Consider further outpatient eval per Dr. Mosley
Diagnosis
-
Date of Service: October 24, 2024
-
Patient Diagnosis:
Prostate cancer
Radiation cystitis
Gross hematuria
PE
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
Subjective
-
Comfortable
Fatigued
Objective
-
Vital Signs
Temp Pulse Resp BP Pulse Ox
98.3 F 82 18 141/71 94
10/24/24 07:42 10/24/24 07:42 10/24/24 07:42 10/24/24 07:42 10/24/24 07:42
Intake and Output
10/23/24 10/24/24 10/25/24
06:59 06:59 06:59
Intake Total 970 / 970 600 / 600
Output Total 400 / 400 725 / 725
Balance 570 / 570 -125 / -125 -
Intake:
Oral fluids 720 / 720 600 / 600
Amount instilled into Urinary 250 / 250
Drain (Total)
Left Nephrostomy 150 / 150
Right Nephrostomy 100 / 100
Output:
Urinary Drain Output (Total) 400 / 400 725 / 725
Left Nephrostomy 300 / 300 400 / 400 0 / 0
Right Nephrostomy 100 / 100 325 / 325
Laboratory Results
10/24/24 08:57
10/22/24 06:15
Review of Systems
-
Constitutional: Fatigue
Cardiac: No Symptoms
Abdomen/GI: No Symptoms
: Bleeding
Neurological: No Symptoms
Physical Exam
-
General - well developed, well nourished, no acute distress
Abdomen - soft, non-tender. Right PCN with bloody urine, left PCN clear
Genitalia - normal
Skin - warm & dry with no rash
Neuro - AOx3, no motor deficits
[2024-10-24 15:00] VITALS: BP 144/68
[2024-10-24 23:00] VITALS: BP 127/64
[2024-10-25 06:00] VITALS: BMI 24.7
[2024-10-25 06:08] LABS: Hematocrit 24.3 % (39.0-52.0); Hemoglobin 8.0 g/dL (13.0-18.0)
[2024-10-25 06:33] LABS: Blood Urea Nitrogen 25 mg/dl (9-20); Calcium 8.7 mg/dl (8.4-10.2); Carbon Dioxide 25 mmol/L (22-30); Chloride 103 mmol/L (98-107); Estimated Creatinine Clearance 48 ml/min; Glucose 101 mg/dl (70-99); Potassium 4.3 mmol/L (3.5-5.1); Sodium 134 mmol/L (135-145); eGFR 58.53
[2024-10-25 07:00] VITALS: BP 137/75
[2024-10-25] MEDS: ELIQUIS 5 MG PO (10:33)
--- NOTE | 2024-10-25 10:44 | CM ---
entered order for discharge.
Pt has gustavo nephrostomy tubes draining bloody drainage.
Pt will be dc with [facility] .
His Olayinka will drive him home.
IMM reviewed signed on chart,
PLAN Home with [facility]
--- NOTE | 2024-10-25 11:51 | W.DCSUMMARY ---
Discharge Summary
Discharge Data
Date of Admission: 10/14/24
Date of Discharge: 10/25/24
Total time spent discharging patient (in min): 57
-
Pending Results: No
Hospital Course
Mr. 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
with acute urinary retention. He had a Rodriguez catheter placed during his recent evaluation in the ED for recurrent hematuria and urinary retention, which was 3 days prior to arrival for this admission. However he noticed that his Rodriguez catheter had
drained a few clots and then stopped draining any urine over many hours. He had developed lower abdominal discomfort and a sensation of a full bladder. He presented to the emergency department, was started on continuous bladder irrigation, and
admitted for further evaluation and management.
His bleeding appears secondary to radiation cystitis which is a recurrent problem for him. His anticoagulation with Eliquis, which he was on for treatment of recent pulmonary embolism, was transitioned to IV heparin drip. He required transfusion
of 1 unit packed red blood cells after which his hemoglobin remained stable around 8.0. He was brought to the OR on 10/15/2024 for cystoscopy with clot evacuation, bladder fulguration, and transurethral resection of the right ureteral orifice. He
required bilateral percutaneous nephrostomy tube placement which was done by the interventional radiologist on 10/19/24. His Rodriguez catheter was able to be removed. He initially had an acute kidney injury, likely due to urinary tract obstruction,
which resolved after placement of the nephrostomy tubes. He had bloody urine output from the right nephrostomy tube and so his anticoagulation was held from the morning of 10/21/2024. The bloody output from his right nephrostomy tube began to clear
but did not completely resolve. He had no bloody output from his left nephrostomy tube or from his urethra. His anticoagulation with Eliquis was restarted on the morning of 10/25/2024 for ongoing treatment of his recently diagnosed pulmonary
embolism. He will need to monitor his urine output for rebleeding. If the bleeding becomes significant he will need to discontinue anticoagulation. He will need ongoing blood work frequently to monitor his hemoglobin levels in case he requires
further transfusion of blood products. He will need close follow-up with his urologist for ongoing management of his radiation cystitis and hematuria. A visiting nurse service has been arranged for him for management of his nephrostomy tubes. At
the time of hospital discharge he was medically stable.
General: No Apparent Distress, Comfortable and Conversant
HEENT: NormoCephalic, Moist mucous membranes, Atraumatic
Respiratory: Clear and Non Labored Respirations
Cardiac: S1/S2 and Regular Rhythm; No Rub or Gallop
GI: Soft, Non Tender, Non Distended and Normal Bowel Sounds
Musculoskeletal: No Edema, no deformity
: NO Rodriguez, bilateral nephrostomy tubes, blood mixed with urine from right nephrostomy tube improved from yesterday
Neuro: Awake, Alert, Nonfocal/grossly intact
Psych: Calm and Intact Judgment/Insight
Discharge Plan
-
Patient Disposition: Home with Home Care
Discharge Diagnosis/Procedures: Hematuria with clots and acute urinary retention, acute blood loss anemia
Blood Work: Frequent monitoring of hemoglobin levels if continues to have blood from right nephrostomy tube
Other Services: VN
Activity Restrictions/Additional Instructions:
Mr. 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
with acute urinary retention. He had a Rodriguez catheter placed during his recent evaluation in the ED for recurrent hematuria and urinary retention, which was 3 days prior to arrival for this admission. However he noticed that his Rodriguez catheter had
drained a few clots and then stopped draining any urine over many hours. He had developed lower abdominal discomfort and a sensation of a full bladder. He presented to the emergency department, was started on continuous bladder irrigation, and
admitted for further evaluation and management.
His bleeding appears secondary to radiation cystitis which is a recurrent problem for him. His anticoagulation with Eliquis, which he was on for treatment of recent pulmonary embolism, was transitioned to IV heparin drip. He required transfusion
of 1 unit packed red blood cells after which his hemoglobin remained stable around 8.0. He was brought to the OR on 10/15/2024 for cystoscopy with clot evacuation, bladder fulguration, and transurethral resection of the right ureteral orifice. He
required bilateral percutaneous nephrostomy tube placement which was done by the interventional radiologist on 10/19/24. His Rodriguez catheter was able to be removed. He initially had an acute kidney injury, likely due to urinary tract obstruction,
which resolved after placement of the nephrostomy tubes. He had bloody urine output from the right nephrostomy tube and so his anticoagulation was held from the morning of 10/21/2024. The bloody output from his right nephrostomy tube began to clear
but did not completely resolve. He had no bloody output from his left nephrostomy tube or from his urethra. His anticoagulation with Eliquis was restarted on the morning of 10/25/2024 for ongoing treatment of his recently diagnosed pulmonary
embolism. He will need to monitor his urine output for rebleeding. If the bleeding becomes significant he will need to discontinue anticoagulation. He will need ongoing blood work frequently to monitor his hemoglobin levels in case he requires
further transfusion of blood products. He will need close follow-up with his urologist for ongoing management of his radiation cystitis and hematuria. A visiting nurse service has been arranged for him for management of his nephrostomy tubes. At
the time of hospital discharge he was medically stable.
Referrals:
Yuri Pineda DO [Family Provider, Family Practice]
Stevan Mosley MD [Active, Urology]
Prescriptions:
New
tramadol 50 mg Tablet
50 mg PO Q6HPRN PRN (Reason: sev pain) Qty: 15 0RF
Continued
multivitamin Tablet
1 tab PO DAILY
Eliquis 5 mg Tablet
5 mg PO BID
Rx Instructions:
Tkae 2 tablets by mouth twice a day for 7 days, then decrease to 1 tablet by mouth twice a day
Discharge Orders:
Discharge Patient (As Directed); Ordered 10/25/24
Ordered By: Eric Newton
Discharge Date and Time
Print Language: TELUGU
[2024-10-25 14:04] VITALS: BP 151/67
--- NOTE | 2024-10-25 15:36 | PTCARENOTE ---
pt reported mild pain in b/l nephrostomy tube areas but denied need for analgesia, tolerating diet, transferring with assist x1 with rolling walker, vss, for discharge to home with his with VN
== END 2024-10-25 16:02 | disposition home health service (06) | DRG 659 ==
LOC: 3 WEST ACU 16:31
PROVIDERS: Emergency Medicine; Hospitalist; Internal Medicine; Nurse Practitioner Family; Radiology Vascular & Interventional Radiology; ADMITTING PHYSICIAN Internal Medicine; ATTENDING PHYSICIAN Internal Medicine; CONSULT PHYSICIAN Urology; EMERGENCY PHYSICIAN Emergency Medicine; FAMILY PHYSICIAN Family Medicine
PROC: 30233N1 Transfusion of Nonautologous Red Blood Cells into Peripheral Vein, Percutaneous Approach (ICD-10-PCS; 2024-10-16)
PROC: 0TBB8ZZ Excision of Bladder, Via Natural or Artificial Opening Endoscopic (ICD-10-PCS; 2024-10-18)
PROC: 0T5B8ZZ Destruction of Bladder, Via Natural or Artificial Opening Endoscopic (ICD-10-PCS; 2024-10-18)
PROC: 0TB68ZZ Excision of Right Ureter, Via Natural or Artificial Opening Endoscopic (ICD-10-PCS; 2024-10-18)
PROC: 0TCB8ZZ Extirpation of Matter from Bladder, Via Natural or Artificial Opening Endoscopic (ICD-10-PCS; 2024-10-18)
PROC: 0T9330Z Drainage of Right Kidney Pelvis with Drainage Device, Percutaneous Approach (ICD-10-PCS; 2024-10-20)
PROC: 0T9430Z Drainage of Left Kidney Pelvis with Drainage Device, Percutaneous Approach (ICD-10-PCS; 2024-10-20)
DX: N30.41 Irradiation cystitis with hematuria (principal); I26.93 Single subsegmental thrombotic pulmonary embolism without acute cor pulmonale; D62 Acute posthemorrhagic anemia; N17.9 Acute kidney failure, unspecified; N13.1 Hydronephrosis with ureteral stricture, not elsewhere classified; E87.1 Hypo-osmolality and hyponatremia; E87.20 Acidosis, unspecified; D68.32 Hemorrhagic disorder due to extrinsic circulating anticoagulants; J98.11 Atelectasis; C61 Malignant neoplasm of prostate; R33.9 Retention of urine, unspecified; E78.00 Pure hypercholesterolemia, unspecified; R50.9 Fever, unspecified; N18.32 Chronic kidney disease, stage 3b; Y84.2 Radiological procedure and radiotherapy as the cause of abnormal reaction of the patient, or of later complication, without mention of misadventure at the time of the procedure; R31.0 Gross hematuria; Z85.46 Personal history of malignant neoplasm of prostate; Z86.711 Personal history of pulmonary embolism; Z90.79 Acquired absence of other genital organ(s); Z79.01 Long term (current) use of anticoagulants; Z87.891 Personal history of nicotine dependence; Z92.3 Personal history of irradiation; Z79.82 Long term (current) use of aspirin
CPT/HCPCS: 50432; 51702; 51798; 71046; 74176; 80048; 80053; 80061; 84153; 85014; 85018; 85025; 85027; 85610; 85730; 86850; 86900; 86901; 86920; 87086; 99152; 99153; 99285; C1729; C1769; P9016

== ENCOUNTER → 2024-11-03 14:01 | Outpatient (REF) | payer MEDICARE, SELFPAY | LOC: RCS 14:01 | PROVIDERS: ATTENDING PHYSICIAN Internal Medicine Cardiovascular Disease; FAMILY PHYSICIAN Family Medicine | DX: R06.09 Other forms of dyspnea (principal) | CPT/HCPCS: 93306 ==

== ENCOUNTER 2024-11-05 07:56 | Emergency (ER) | payer MEDICARE, SELFPAY ==
[2024-11-05] VITALS (8 sets, daily range): BP systolic 98–141; BP diastolic 56–90; BMI 24.2
--- NOTE | 2024-11-05 08:14 | ED.GENMED ---
History of Present Illness
General
Chief Complaint: Catheter/Tube Problem
Time Seen by Provider: 11/05/24 08:01
History of Present Illness
History of Present Illness:
89-year-old male with history of PE on Eliquis and history of prostate cancer status post prostatectomy with radiation and subsequent radiation cystitis presenting to the emergency department for evaluation of nephrostomy tubes. On review of EMR,
patient was seen in the hospital in September with hematuria out of Rodriguez catheter. On 10/15 patient had cystoscopy and transurethral resection of right ureteral orifice. On 10/19 patient had bilateral nephrostomy tubes placed. Patient notes in the
past few days he has been having drainage around the site of the left nephrostomy tube. Notes some intermittent pain to the left flank. Denies any hematuria. Denies any fever. Had a visiting nurse that came out to the house yesterday, reports
that the urology office was called and they were told to come to the hospital today for evaluation of the tube. Patient denies additional acute medical complaints
Past History
Past History
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
ED Past Surgical History: Urological (Prostatectomy 2004)
Social History
Tobacco: Non-smoker
Alcohol: Occasional
Drug: None
Personal:
Living: with family
Employment: Retired
Family History
Family History: Other (Noncontributory)
Phy Exam
Physical Exam
Physical Exam:
General: Well-appearing, no clinical signs of dehydration, nontoxic and in no acute distress
HEENT: protecting airway
Neck: appears supple
CV: Normal heart rate
Resp: No accessory muscle use, no increased work of breathing
Abd: No distention
Extremities: No deformities, no swelling
Back: Bilateral nephrostomy tube in place, however on left side, dressing soaked with clear drainage. No erythema or warmth. No tenderness to palpation
Neuro: alert, no focal neurologic deficit
: deferred
Rectal: deferred
Psych: Normal affect
Skin: Intact
Course
Orders/Labs/Results
Orders:
Orders
11/05/24 08:27
Basic Metabolic Panel Urgent
Complete Blood Count/With Diff Urgent
Prothrombin Time Urgent
11/05/24 09:07
Consult Interventional Radiology [IRAD CONSULT] Urgent
Consulting Provider: Daniel Cordon
Was physician already notified: Yes
Procedure being ordered, including laterality if applicable: L-nephrostomy tube replacement
Acknowledgement that appropriate orders are entered: Yes
11/05/24 10:42
Lidocaine 2% [Xylocaine 2% Mdv] 20 ml .ROUTE .STK-MED ONE
Abnormal Lab Results
11/05/24
08:27
RBC 3.06 L 10^6/uL
(4.70-6.10)
Hgb 8.4 L g/dL
(13.0-18.0)
Hct 26.5 L %
(39.0-52.0)
MCHC 31.7 L g/dL
(33.0-37.0)
RDW 14.6 H %
(11.5-14.5)
Abs Immat Gran (auto) 0.1 H 10^3/uL
(0-0.05)
Absolute Monos (auto) 0.9 H 10^3/uL
(0.1-0.6)
Immature Gran % 0.6 H %
(0-0.5)
Lymphocytes % 19.4 L %
(20.5-51.1)
Monocytes % 10.5 H %
(1.7-9.3)
PT 27.0 H Sec
(11.4-14.6)
BUN 39 H mg/dl
(9-20)
Creatinine 1.5 H mg/dL
(0.7-1.3)
Glucose 114 H mg/dl
(70-99)
11/05/24 08:27
11/05/24 08:27
Vital Signs
Initial and Last Documented VS:
Initial Vital Signs
Temp Pulse Resp BP Pulse Ox
97.8 F 98 16 141/73 97
11/05/24 07:59 11/05/24 07:59 11/05/24 07:59 11/05/24 07:59 11/05/24 07:59
Last Documented Vital Signs
Temp Pulse Resp BP Pulse Ox
98.1 F 98 16 106/56 96
11/05/24 10:40 11/05/24 10:40 11/05/24 10:40 11/05/24 12:00 11/05/24 12:15
MDM/Problems Addressed
MDM/Problems Addressed:
89-year-old male with history of PE on Eliquis and history of prostate cancer status post prostatectomy with radiation and subsequent radiation cystitis status post bilateral nephrostomy tube placement on 10/19 presenting for concern of leakage to the
left tube. Vital signs are normal.
On exam patient is resting comfortably, no acute distress. Concern for possible displacement of left nephrostomy tube. Will discuss with IR, possible adjustment or replacement of tube. Will screen with laboratory analysis.
09:00 - Discussed with IR. They will evaluate tube
12:10 - Tube was replaced and bags were changed. Feel stable for discharge with continued outpatient management. Return precautions discussed and patient verbalized understanding
*Pulse Oximetry
SaO2: 97
Oxygen Mode of Delivery: Room air
Patient hypoxic: no
*Critical Care Note
Total Time (30-74mins, 75-104mins- exclusive of procedures): Not Applicable
ED Attending Note
-
Portions of this chart may have been created with voice recognition software.� Occasional wrong word or��sound alike� substitutions may have occurred due to the inherent limitations of voice recognition software.
Discharge Plan
Departure
Prescriptions:
No Action
multivitamin Tablet
1 tab PO DAILY
tramadol 50 mg Tablet
50 mg PO Q6HPRN PRN (Reason: sev pain) Qty: 15 0RF
Eliquis 5 mg Tablet
5 mg PO BID Qty: 60 0RF
Referrals:
Yuri Pineda DO [Family Provider, Family Practice]
Interventions
Interventions:
*Risk Screen - Suicide Last Done: 11/05/24 08:00
*General Assessment Last Done: 11/05/24 08:15
*Neglect/Abuse Screening Last Done: 11/05/24 08:00
*ED- Fall Risk Assessment Last Done: 11/05/24 08:15
*ED COVID-19 Vaccine History Last Done: 11/05/24 08:15
JT-Ymyvsx-Sqhhonmqfx Assessment Last Done: 11/05/24 08:30
ED-Male Genitourinary Assessment Last Done: 11/05/24 08:30
Discharge Date and Time
Print Language: GIBRALTARIAN
[2024-11-05 08:38] LABS: Hematocrit 26.5 % (39.0-52.0); Hemoglobin 8.4 g/dL (13.0-18.0); Mean Corp Hgb Conc. 31.7 g/dL (33.0-37.0); Mean Corpuscular Volume 86.6 fL (80.0-94.0); Nucleated Red Blood Cells % 0 % (-); Platelet Count 341 10^3/uL (130-400); Red Cell Dist. Width 14.6 % (11.5-14.5)
[2024-11-05 08:48] LABS: INR 2.50; PT 27.0 Sec (11.4-14.6)
[2024-11-05 09:03] LABS: Blood Urea Nitrogen 39 mg/dl (9-20); Calcium 8.6 mg/dl (8.4-10.2); Carbon Dioxide 25 mmol/L (22-30); Chloride 103 mmol/L (98-107); Estimated Creatinine Clearance 38 ml/min; Glucose 114 mg/dl (70-99); Sodium 135 mmol/L (135-145); eGFR 44.78
== END 2024-11-05 13:11 | disposition home or self-care (01) ==
LOC: EMR 07:56
PROVIDERS: CONSULT PHYSICIAN Radiology Vascular & Interventional Radiology; EMERGENCY PHYSICIAN Student in an Organized Health Care Education/Training Program; FAMILY PHYSICIAN Family Medicine
DX: T83.032A Leakage of nephrostomy catheter, initial encounter (principal); N13.5 Crossing vessel and stricture of ureter without hydronephrosis; Y73.2 Prosthetic and other implants, materials and accessory gastroenterology and urology devices associated with adverse incidents; E78.00 Pure hypercholesterolemia, unspecified; Z79.01 Long term (current) use of anticoagulants; Z86.711 Personal history of pulmonary embolism; Z85.46 Personal history of malignant neoplasm of prostate; Z90.79 Acquired absence of other genital organ(s); Z92.3 Personal history of irradiation
CPT/HCPCS: 99283; 50435; 80048; 85025; 85610; C1729; C1769

== ENCOUNTER 2024-11-05 23:55 | Emergency (ER) | payer MEDICARE, SELFPAY ==
[2024-11-05 23:57] VITALS: BP 110/50
[2024-11-06 00:43] VITALS: BP 125/69
[2024-11-06 01:00] VITALS: BP 113/61
--- NOTE | 2024-11-06 01:47 | ED.GENMED ---
History of Present Illness
General
Chief Complaint: Catheter/Tube Problem
Source: patient, spouse and previous hospital records (ED visit from yesterday for similar complaint; recent hospitalization October 14 to October 25 for treatment of acute urinary retention, hematuria. Bilateral nephrostomy tubes placed.)
Exam Limitations: none
Time Seen by Provider: 11/06/24 01:32
Nursing documentation reviewed up to this point in time: agreed with except (Patient does not have a Rodriguez catheter, he has bilateral nephrostomy tubes.)
History of Present Illness
History of Present Illness:
This is an 89-year-old gentleman who resides at home with his . He has history of PE, on Eliquis, history of prostate cancer status post prostatectomy, radiation with subsequent radiation cystitis. Recently hospitalized October 14 to October
for acute hematuria, urinary retention requiring cystoscopy and transurethral resection of the right ureteral orifice. During that hospitalization he had bilateral nephrostomy tubes placed. He presented to this ED yesterday morning with
complaints of leakage around the left nephrostomy tube site along with some intermittent pain to the left flank.
He was evaluated by IR and left nephrostomy tube was replaced yesterday.
He returns to the ED with complaints of decreased urine output from the left nephrostomy tube along with mild discomfort left flank. He has not had a fever. He has noted very mildly blood-tinged urine and states that was to be expected as per
interventional radiologist.
Patient's attempted to flush the nephrostomy tube but was unable to unscrew/disconnect the tubing.
Since arrival to the ED there has been minimal intermittent drainage from left nephrostomy tube and mild improvement in left flank pain.
He denies abdominal pain, no nausea nor vomiting. No chest pain or cough no shortness of breath.
He has had no leaking about the nephrostomy tube sites.
Past History
Past History
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
ED Past Surgical History: Urological (Prostatectomy 2004, bilateral nephrostomy tubes October 2024)
Social History
Tobacco: Non-smoker
Alcohol: Occasional
Drug: None
Personal:
Living: with family
Employment: Retired
Family History
Family History: Other (Noncontributory)
Phy Exam
Physical Exam
Physical Exam:
GENERAL: 89-year-old gentleman appears his stated age, awake and alert, pleasant, appears in no acute distress. is accompanying.
EYE: anicteric
NECK: Supple, nontender
ENT: oral mucosa is moist. No rhinorrhea.
CARDIAC: Regular rate and rhythm. no murmur.
LUNGS: Clear breath sounds bilaterally, no acute respiratory distress, no wheezes/rales/rhonchi
ABDOMEN: Soft, nondistended, without focal tenderness, no r/g, no cvat. normoactive BS. Bilateral nephrostomy tubes in place. Dressings are dry and intact. There is dark yellow urine within the right nephrostomy tube. Left nephrostomy tube has
dark sukhjinder to blood-tinged urine within the bag, dark sukhjinder/blood-tinged urine with small amount of sediment within left nephrostomy drainage tubing.
NEUROLOGICAL: Alert and oriented x3, no focal neuro deficits. Gait is steady.
SKIN: Warm and dry, normal color, skin intact. No rash.
MUSCULOSKELETAL: No C/C/E. peripheral pulses are full and equal b/l. No palpable tenderness.
PSYCH: Normal and appropriate interaction.
Sepsis
Sepsis Screening
Sepsis Assessment: Sepsis Ruled Out
Sepsis Screen
Sepsis Screen: Sepsis Ruled Out
Date: 11/06/24
Time: 02:04
Course
Vital Signs
Initial and Last Documented VS:
Initial Vital Signs
Temp Pulse Resp BP Pulse Ox
98.2 F 102 26 110/50 98
11/05/24 23:57 11/05/24 23:57 11/05/24 23:57 11/05/24 23:57 11/05/24 23:57
Last Documented Vital Signs
Temp Pulse Resp BP Pulse Ox
98.2 F 102 26 113/61 94
11/05/24 23:57 11/05/24 23:57 11/05/24 23:57 11/06/24 01:00 11/06/24 01:00
MDM/Problems Addressed
Differential Diagnosis Includes:
Patient presents with malfunction of left nephrostomy tube that was just changed yesterday.
Concern for blocked nephrostomy tube and there is note of some sediment debris within the drainage tube on the left.
Nephrostomy tubing connector disconnected without difficulty. Left nephrostomy tube irrigated with 4 cc normal saline solution without difficulty and similar amount withdrawn without difficulty.
Patient noted mild increase in left flank pain with nephrostomy tube flushing otherwise tolerated procedure well.
Upon reconnection of nephrostomy drainage bag, nephrostomy tube is now draining blood-tinged urine. Patient reports complete relief of left flank pain.
has supplies at home to flush the tube as needed.
Home health nurse is plan to arrive later today.
Chronic conditions affecting care: Kidney disease (History of radiation cystitis with urinary retention, bilateral nephrostomy tubes)
Acute Exacerbation and/or Progression of Chronic Illness: Kidney disease (Malfunction of left nephrostomy tube/blockage. Likely related to urinary sediment.)
*Pulse Oximetry
SaO2: 94
Oxygen Mode of Delivery: Room air
Patient hypoxic: no
*Critical Care Note
Total Time (30-74mins, 75-104mins- exclusive of procedures): Not Applicable
Patient Management
Social determinants of health affecting care: Other (Patient has home health nurse visits twice weekly, nurse will be out later today, November 06 as scheduled.)
ED Attending Note
-
Portions of this chart may have been created with voice recognition software.� Occasional wrong word or��sound alike� substitutions may have occurred due to the inherent limitations of voice recognition software.
Discharge Plan
Departure
Patient Disposition: Home (Routine Discharge)
Date of Disposition: 11/06/24
Time of Disposition: 01:49
Patient with high blood pressure during this ER visit?: No
Condition: Good
Discharge Problem:
Malfunction of nephrostomy tube
Instructions: How to care for a nephrostomy tube
Prescriptions:
No Action
multivitamin Tablet
1 tab PO DAILY
tramadol 50 mg Tablet
50 mg PO Q6HPRN PRN (Reason: sev pain) Qty: 15 0RF
Eliquis 5 mg Tablet
5 mg PO BID Qty: 60 0RF
Referrals:
Yuri Pineda DO [Family Provider, Family Practice]
Interventions
Interventions:
*Risk Screen - Suicide Last Done: 11/05/24 23:57
*General Assessment Last Done: 11/06/24 00:55
*Neglect/Abuse Screening Last Done: 11/05/24 23:57
*ED- Fall Risk Assessment Last Done: 11/06/24 00:55
*ED COVID-19 Vaccine History Last Done: 11/06/24 00:55
YA-Uxntxj-Jwtwttlabf Assessment Last Done: 11/06/24 00:55
ED-Male Genitourinary Assessment Last Done: 11/06/24 00:59
Discharge Date and Time
Print Language: [id number]
== END 2024-11-06 02:03 | disposition home or self-care (01) ==
LOC: EMR 23:55
PROVIDERS: EMERGENCY PHYSICIAN Emergency Medicine; FAMILY PHYSICIAN Family Medicine
DX: T83.012A Breakdown (mechanical) of nephrostomy catheter, initial encounter (principal); Y73.2 Prosthetic and other implants, materials and accessory gastroenterology and urology devices associated with adverse incidents; E78.00 Pure hypercholesterolemia, unspecified; Z79.01 Long term (current) use of anticoagulants; Z86.711 Personal history of pulmonary embolism; Z85.46 Personal history of malignant neoplasm of prostate; Z90.79 Acquired absence of other genital organ(s); Z92.3 Personal history of irradiation
CPT/HCPCS: 99283

== ENCOUNTER → 2024-11-09 11:27 | Outpatient (REF) | payer MEDICARE, SELFPAY ==
[2024-11-09 12:31] LABS: Hematocrit 27.2 % (39.0-52.0); Hemoglobin 8.7 g/dL (13.0-18.0); Mean Corp Hgb Conc. 32.0 g/dL (33.0-37.0); Mean Corpuscular Volume 85.5 fL (80.0-94.0); Platelet Count 383 10^3/uL (130-400); Red Cell Dist. Width 15.0 % (11.5-14.5)
[2024-11-09 12:57] LABS: Nucleated Red Blood Cells % 0 % (-); Reticulocyte Count 0.9 % (0.4-2.8)
[2024-11-09 13:26] LABS: Iron 26 ug/dl (49-181); LDH 546 U/L (120-246)
[2024-11-09 16:29] LABS: Folate > 20.0 ng/ml (2.76-20); Vitamin B12 > 1000 pg/ml (239-931)
[2024-11-09 16:49] LABS: Ferritin 1330.0 ng/ml (17.9-464.0)
== END ==
LOC: OIDL 11:27
PROVIDERS: ATTENDING PHYSICIAN Internal Medicine Hematology & Oncology
DX: C61 Malignant neoplasm of prostate (principal); I26.99 Other pulmonary embolism without acute cor pulmonale; C79.51 Secondary malignant neoplasm of bone; D50.0 Iron deficiency anemia secondary to blood loss (chronic)
CPT/HCPCS: 36415; 82232; 82607; 82668; 82728; 82746; 82784; 83010; 83521; 83540; 83615; 84155; 84165; 85025; 85045; 85652; 86334; 86880

== ENCOUNTER 2024-11-13 17:08 | Inpatient (IN) | payer MEDICARE, SELFPAY ==
[2024-11-13] VITALS (16 sets, daily range): BP systolic 96–152; BP diastolic 49–139; BMI 24.4; BMI 24.5
[2024-11-13 14:02] LABS: Urine Character Cloudy (Clear)
[2024-11-13 14:05] LABS: Hematocrit 28.8 % (39.0-52.0); Hemoglobin 8.9 g/dL (13.0-18.0); Mean Corp Hgb Conc. 30.9 g/dL (33.0-37.0); Mean Corpuscular Volume 86.5 fL (80.0-94.0); Platelet Count 577 10^3/uL (130-400); Red Cell Dist. Width 15.8 % (11.5-14.5)
--- NOTE | 2024-11-13 14:10 | ED.GENMED ---
History of Present Illness
<Gabriela Lafleur GOVERNMENT AFFAIRS FELLOW - Last Filed: 11/13/24 17:21>
General
Chief Complaint: Male Genito-Urinary Symptoms
Source: patient and spouse
Exam Limitations: none
Time Seen by Provider: 11/13/24 14:10
Nursing documentation reviewed up to this point in time: agreed with
History of Present Illness
History of Present Illness:
89-year-old with history of prostate cancer with prostatectomy 20 years ago but states it has returned with a PSA of 8, followed by Dr. Bustamante, HLD, aortic stenosis, tricuspid valve insufficiency, obesity, PE 10/09/24 on Eliquis, has bilateral
nephrostomy tubes Pt states he's here for 'fatigue,'cough past 3 weeks. 'Mid back pain' which pt states is chronic, takes Tramadol prn.
with patient states worsening fatigue and he has been unable to get out of his reclining chair for the past 3 days. Visiting nurse came today and called EMS to bring patient here, with the help of to EMS personnel he ambulated to the van.
There is been no vomiting or diarrhea but states he has been nauseous and trying to throw up and his appetite has been poor and for the past couple of days.
Visiting nurses twice a week. Has been no fever or diarrhea.
Past History
<Gabriela Lafleur, GOVERNMENT AFFAIRS FELLOW - Last Filed: 11/13/24 17:21>
Past History
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
ED Past Surgical History: Urological (Prostatectomy 2004, bilateral nephrostomy tubes October 2024)
Social History
Tobacco: Non-smoker
Alcohol: Occasional
Drug: None
Personal:
Living: with family
Employment: Retired
Family History
Family History: Other (Noncontributory)
Phy Exam
<Gabriela V. Day, GOVERNMENT AFFAIRS FELLOW - Last Filed: 11/13/24 17:21>
Physical Exam
Physical Exam:
GENERAL: No acute distress. A&Ox3.
CONSTITUTIONAL: Afebrile.
EYES: clear, conjunctivae normal
ENMT: moist mucus membranes, Pharynx nl
RESPIRATORY: Regular respirations, nonlabored, lungs clear.
CARDIOVASCULAR: Regular rate and rhythm, no murmurs, no rubs.
GI: Soft, nontender, normal BS
MUSCULOSKELETAL: Moves with ease. Well perfused.
SKIN: Warm, dry, pink
PSYCH: Normal mood and affect. Well kept, interactive and appropriate
NEUROLOGIC: Awake, alert and oriented. No focal neurological deficits
Sepsis
<Gabriela Lafleur, GOVERNMENT AFFAIRS FELLOW - Last Filed: 11/13/24 17:21>
Sepsis Screening
Sepsis Assessment: Sepsis
Sepsis Screening: Lactate >/=4mmol/L, Hypotension, ARF-Creatinine >2.0 and Worsening O2 Saturation
Sepsis Screen
Sepsis Screen: Sepsis
Date: 11/13/24
Time: 17:18
<Thuy Woods DO - Last Filed: 11/13/24 16:06>
Sepsis Screen
Sepsis Screen: Sepsis
Date: 11/13/24
Time: 15:54
Course
<Gabriela Lafleur, GOVERNMENT AFFAIRS FELLOW - Last Filed: 11/13/24 17:21>
Orders/Labs/Results
Orders:
Orders
11/13/24 13:50
Electrocardiogram (*1) Urgent
Reason for Study: Other
Other Reason for Exam: Possible Sepsis
CR Chest Portable - 1 View Urgent
Comment:
Reason For Exam: high flow O2
Reason Study Needs to be Portable: Patient Unstable
11/13/24 13:51
EKG- Treatment ONCE
11/13/24 13:52
Complete Blood Count/With Diff Urgent
Comprehensive Metabolic Panel Urgent
Lactic Acid Urgent
Prothrombin Time Urgent
Urinalysis Reflex To Culture Urgent
Date Specimen was Collected: 11/13/24
Time Specimen was Collected: 13:50
Comment: left nephrostomy tube
Urine Microscopic Reflex Cult Urgent
Urine Culture Urgent
LINDSEY Source: U
Specimen Description:
Date Specimen was Collected: 11/13/24
Time Specimen was Collected: 13:50
11/13/24 13:54
COVID-19 Antigen Urgent
Source: Nasal Swab
Blood Culture Q20M
LINDSEY Source: Blood/Venous
Specimen Description:
Comment: Urgent from separate sites. If patient screens positive for possible sepsis
Influenza A+B Rapid Molecular Urgent
LINDSEY Source: Nasal Swab
Specimen Description:
11/13/24 14:03
Urinalysis Reflex To Culture Urgent
Date Specimen was Collected: 11/13/24
Time Specimen was Collected: 14:01
Comment: Right nephrostomy tube
Urine Microscopic Reflex Cult Urgent
Blood Culture Q20M
[place]IND[place]Y Source: Blood/Venous
Specimen Description:
Comment: Urgent from separate sites. If patient screens positive for possible sepsis
Urine Culture Urgent
LINDSEY Source: U
Specimen Description:
Date Specimen was Collected: 11/13/24
Time Specimen was Collected: 14:01
11/13/24 14:25
0.9% Sodium Chloride 1000 ml [Nss] 1,000 ml IV BOLUS
11/13/24 14:40
0.9% Sodium Chloride 1000 ml [Nss] 2,400 ml IV NOW STA
11/13/24 14:41
CefTRIAXone [Rocephin] 1,000 mg IV NOW STA
11/13/24 Dinner
Regular
At Your Request: Full Participation
11/13/24 15:06
Vancomycin [Vancocin] 2,000 mg 0.9% Sodium Chloride 500 ml [Nss] 500 ml IV NOW
11/13/24 16:11
Admit/Transfer Patient As Directed
Co-Sign Provider:
Level of Care: Inpatient admission
Assign to:: Telemetry
Physician / Group: Ayaan Dale
Diagnosis: Sepsis, UTI, PNA, a-fib RVR
Reason for Telemetry: Arrhythmia
Date to Stop Telemetry: 11/16/24
Time to Stop Telemetry: 11:00
Reason for Hospitalization: Sepsis, UTI, PNA, a-fib RVR
Expected length of stay greater than two midnights?: Yes
ELOS- Estimated Length of Stay in days: 3
I certify the patient meets the requirements for IP care: Yes
11/13/24 16:12
PRN Pain Medication Management As Directed
May give lesser potent ordered pain med per pt: Yes
preference::
Protocol:: Medication orders for pain may be administered in a
manner that supports deferring to patient preference
when the pt is:
- Requesting an ordered lesser potent pain medication.
Least to most potent pain medications are defined
as: acetaminophen < NSAID < tramadol < opioids
(morphine, oxycodone, hydromorphone).
- Requesting a lesser dose of the same medication IF
ORDERED.
- Requesting a less intrusive route of administration
if both routes are prescribed by the provider (PO <
IV).
11/13/24 16:13
Code Status As Directed
Resuscitation Status: Do not resuscitate
Reached after discussion with pt or family/Healthcare POA: Yes
Decision communicated with: patient
DNR Bracelet Application ONCE
11/13/24 16:43
CARDIOLOGY CONSULT Routine
Consulting Provider: Steffen Ruano
Was physician already notified: Yes
INFECTIOUS DISEASE CONSULT Routine
Consulting Provider: Debbi Bui
Was physician already notified: Yes
O2 Therapy [RESP] Routine
Titrate/Wean O2 to maintain O2 sat greater than (%): 93
Special Instructions: wean as tolerated
Ot Eval And Treat Routine
Pt Eval And Treat Routine
Activity Level: As Tolerated
11/13/24 16:55
Metoprolol [Lopressor] 2.5 mg IV NOW STA
11/13/24 18:00
Cefepime HCl [Maxipime] 2,000 mg IV Q8H
11/16/24 11:00
DC Protocol for Telemetry ONCE
Abnormal Lab Results
11/13/24 11/13/24
13:52 14:03
WBC 17.0 H 10^3/uL
(4.8-10.8)
RBC 3.33 L 10^6/uL
(4.70-6.10)
Hgb 8.9 L g/dL
(13.0-18.0)
Hct 28.8 L %
(39.0-52.0)
MCH 26.7 L pg
(27.0-31.0)
MCHC 30.9 L g/dL
(33.0-37.0)
RDW 15.8 H %
(11.5-14.5)
Plt Count 577 H D 10^3/uL
(130-400)
MPV 11.5 H fL
(7.4-10.4)
Abs Immat Gran (auto) 0.5 H 10^3/uL
(0-0.05)
Absolute Neuts (auto) 12.6 H 10^3/uL
(1.4-6.5)
Immature Gran % 3.1 H %
(0-0.5)
Lymphocytes % 19.2 L %
(20.5-51.1)
PT 25.8 H Sec
(11.4-14.6)
BUN 85 H mg/dl
(9-20)
Creatinine 2.2 H mg/dL
(0.7-1.3)
Glucose 158 H mg/dl
(70-99)
Lactic Acid 3.3 H mmol/L
(0.7-2.0)
AST 135 H U/L
(17-59)
ALT 153 H U/L
(0-50)
Alkaline Phosphatase 142 H U/L
(38-126)
Albumin 3.4 L g/dl
(3.5-5.0)
Ur Occult Blood Reflex 4+ A 4+ A
(Negative) (Negative)
Leukocyte Esterase Rfl 3+ A 3+ A
(Negative) (Negative)
Urine RBC 3-6 A /HPF
(0-2)
Urine WBC (Reflex) 30-40 A /HPF
(0-5)
Urine Bacteria (Reflex) Many A Moderate A
(Negative) (Negative)
Urine Albumin (Reflex) 3+ A 3+ A
(Neg - Trace) (Neg - Trace)
11/13/24 13:52
11/13/24 13:52
Vital Signs
Initial and Last Documented VS:
Initial Vital Signs
Temp Pulse Resp BP Pulse Ox
97.5 F 131 16 152/139 98
11/13/24 13:28 11/13/24 13:28 11/13/24 13:28 11/13/24 13:28 11/13/24 13:28
Last Documented Vital Signs
Temp Pulse Resp BP Pulse Ox
98 F 132 25 106/84 95
11/13/24 14:00 11/13/24 16:15 11/13/24 16:15 11/13/24 16:00 11/13/24 16:20
Sugar Sampler consulted with Physician
Sugar Sampler consulted with physician?: Yes
Name of Physician Consulted: Peggy
<Thuy Woods, DO - Last Filed: 11/13/24 16:06>
Orders/Labs/Results
Orders:
Orders
11/13/24 13:50
Electrocardiogram (*1) Urgent
Reason for Study: Other
Other Reason for Exam: Possible Sepsis
CR Chest Portable - 1 View Urgent
Comment:
Reason For Exam: high flow O2
Reason Study Needs to be Portable: Patient Unstable
11/13/24 13:51
EKG- Treatment ONCE
11/13/24 13:52
Complete Blood Count/With Diff Urgent
Comprehensive Metabolic Panel Urgent
Lactic Acid Urgent
Prothrombin Time Urgent
Urinalysis Reflex To Culture Urgent
Date Specimen was Collected: 11/13/24
Time Specimen was Collected: 13:50
Comment: left nephrostomy tube
Urine Microscopic Reflex Cult Urgent
Urine Culture Urgent
[place]IND[place] Source: U
Specimen Description:
Date Specimen was Collected: 11/13/24
Time Specimen was Collected: 13:50
11/13/24 13:54
COVID-19 Antigen Urgent
Source: Nasal Swab
Blood Culture Q20M
[place] Source: Blood/Venous
Specimen Description:
Comment: Urgent from separate sites. If patient screens positive for possible sepsis
Influenza A+B Rapid Molecular Urgent
[place]IND[place] Source: Nasal Swab
Specimen Description:
11/13/24 14:03
Urinalysis Reflex To Culture Urgent
Date Specimen was Collected: 11/13/24
Time Specimen was Collected: 14:01
Comment: Right nephrostomy tube
Urine Microscopic Reflex Cult Urgent
Blood Culture Q20M
[place]IND[place] Source: Blood/Venous
Specimen Description:
Comment: Urgent from separate sites. If patient screens positive for possible sepsis
Urine Culture Urgent
[place]IND[place] Source: U
Specimen Description:
Date Specimen was Collected: 11/13/24
Time Specimen was Collected: 14:01
11/13/24 14:25
0.9% Sodium Chloride 1000 ml [Nss] 1,000 ml IV BOLUS
11/13/24 14:40
0.9% Sodium Chloride 1000 ml [Nss] 2,400 ml IV NOW STA
11/13/24 14:41
CefTRIAXone [Rocephin] 1,000 mg IV NOW STA
11/13/24 Dinner
Regular
At Your Request: Full Participation
11/13/24 15:06
Vancomycin [Vancocin] 2,000 mg 0.9% Sodium Chloride 500 ml [Nss] 500 ml IV NOW
11/13/24 16:11
Admit/Transfer Patient As Directed
Co-Sign Provider:
Level of Care: Inpatient admission
Assign to:: Telemetry
Physician / Group: Ayaan Dale
Diagnosis: Sepsis, UTI, PNA, a-fib RVR
Reason for Telemetry: Arrhythmia
Date to Stop Telemetry: 11/16/24
Time to Stop Telemetry: 11:00
Reason for Hospitalization: Sepsis, UTI, PNA, a-fib RVR
Expected length of stay greater than two midnights?: Yes
ELOS- Estimated Length of Stay in days: 3
I certify the patient meets the requirements for IP care: Yes
11/13/24 16:12
PRN Pain Medication Management As Directed
May give lesser potent ordered pain med per pt: Yes
preference::
Protocol:: Medication orders for pain may be administered in a
manner that supports deferring to patient preference
when the pt is:
- Requesting an ordered lesser potent pain medication.
Least to most potent pain medications are defined
as: acetaminophen < NSAID < tramadol < opioids
(morphine, oxycodone, hydromorphone).
- Requesting a lesser dose of the same medication IF
ORDERED.
- Requesting a less intrusive route of administration
if both routes are prescribed by the provider (PO <
IV).
11/13/24 16:13
Code Status As Directed
Resuscitation Status: Do not resuscitate
Reached after discussion with pt or family/Healthcare POA: Yes
Decision communicated with: patient
DNR Bracelet Application ONCE
11/13/24 16:43
CARDIOLOGY CONSULT Routine
Consulting Provider: Steffen Ruano
Was physician already notified: Yes
INFECTIOUS DISEASE CONSULT Routine
Consulting Provider: Debbi Bui
Was physician already notified: Yes
O2 Therapy [RESP] Routine
Titrate/Wean O2 to maintain O2 sat greater than (%): 93
Special Instructions: wean as tolerated
Ot Eval And Treat Routine
Pt Eval And Treat Routine
Activity Level: As Tolerated
11/13/24 16:55
Metoprolol [Lopressor] 2.5 mg IV NOW STA
11/13/24 18:00
Cefepime HCl [Maxipime] 2,000 mg IV Q8H
11/16/24 11:00
DC Protocol for Telemetry ONCE
Abnormal Lab Results
11/13/24 11/13/24
13:52 14:03
WBC 17.0 H 10^3/uL
(4.8-10.8)
RBC 3.33 L 10^6/uL
(4.70-6.10)
Hgb 8.9 L g/dL
(13.0-18.0)
Hct 28.8 L %
(39.0-52.0)
MCH 26.7 L pg
(27.0-31.0)
MCHC 30.9 L g/dL
(33.0-37.0)
RDW 15.8 H %
(11.5-14.5)
Plt Count 577 H D 10^3/uL
(130-400)
MPV 11.5 H fL
(7.4-10.4)
Abs Immat Gran (auto) 0.5 H 10^3/uL
(0-0.05)
Absolute Neuts (auto) 12.6 H 10^3/uL
(1.4-6.5)
Immature Gran % 3.1 H %
(0-0.5)
Lymphocytes % 19.2 L %
(20.5-51.1)
PT 25.8 H Sec
(11.4-14.6)
BUN 85 H mg/dl
(9-20)
Creatinine 2.2 H mg/dL
(0.7-1.3)
Glucose 158 H mg/dl
(70-99)
Lactic Acid 3.3 H mmol/L
(0.7-2.0)
AST 135 H U/L
(17-59)
ALT 153 H U/L
(0-50)
Alkaline Phosphatase 142 H U/L
(38-126)
Albumin 3.4 L g/dl
(3.5-5.0)
Ur Occult Blood Reflex 4+ A 4+ A
(Negative) (Negative)
Leukocyte Esterase Rfl 3+ A 3+ A
(Negative) (Negative)
Urine RBC 3-6 A /HPF
(0-2)
Urine WBC (Reflex) 30-40 A /HPF
(0-5)
Urine Bacteria (Reflex) Many A Moderate A
(Negative) (Negative)
Urine Albumin (Reflex) 3+ A 3+ A
(Neg - Trace) (Neg - Trace)
11/13/24 13:52
11/13/24 13:52
Vital Signs
Initial and Last Documented VS:
Initial Vital Signs
Temp Pulse Resp BP Pulse Ox
97.5 F 131 16 152/139 98
11/13/24 13:28 11/13/24 13:28 11/13/24 13:28 11/13/24 13:28 11/13/24 13:28
Last Documented Vital Signs
Temp Pulse Resp BP Pulse Ox
98 F 132 25 106/84 95
11/13/24 14:00 11/13/24 16:15 11/13/24 16:15 11/13/24 16:00 11/13/24 16:20
<Gabriela Lafleur, GOVERNMENT AFFAIRS FELLOW - Last Filed: 11/13/24 17:21>
MDM/Problems Addressed
MDM/Problems Addressed:
89-year-old with history of prostate cancer with prostatectomy 20 years ago but states it has returned with a PSA of 8, followed by Dr. Bustamante, HLD, aortic stenosis, tricuspid valve insufficiency, obesity, PE 10/09/24 on Eliquis, has bilateral
nephrostomy tubes,
with patient states worsening fatigue and states he was unable to get out of his reclining chair for the past 3 days. Visiting nurse came today and called EMS to bring patient here, with the help of to EMS personnel he ambulated to the
van.
There is been no vomiting or diarrhea but states he has been nauseous and trying to throw up and his appetite has been poor and for the past couple of days.
Visiting nurses twice a week. Has been no fever or diarrhea.
Afebrile
2:30 PM:
CBC: WBC 17.0 with a shift
CMP: BUN/creat 85/2.2 with GFR of 28.8 much worse than his baseline
Lactic 3.3
BP soft 99/63, tachycardic,
septic protocol instituted
Carmen from Pharmacy in:
I will stick with Rocephin as micro urine culture from 09/2024 is susceptible, Cefipime DC'd
3:15
CXR: suspicious for LLL pneumonia, awaiting official xray read
Vancomycin also ordered
Hospitalist notified of admission.
Admit: Sepsis, UTI, PNA, new onset afib, afib w RVR.
Radiology CXR rread: IMPRESSION:
New opacity of the mid left lung field concerning for pneumonia. Repeat exam in one to 2 weeks recommended following treatment to confirm improvement or resolution and exclude underlying mass.
<Gabriela Lafleur, GOVERNMENT AFFAIRS FELLOW - Last Filed: 11/13/24 17:21>
*Pulse Oximetry
SaO2: 99
Nasal Cannula flow liters per minute: 2
Oxygen Mode of Delivery: Room air
Patient hypoxic: no
*Critical Care Note
Total Time (30-74mins, 75-104mins- exclusive of procedures): Not Applicable
ED Attending Note
<Gabriela Lafleur, GOVERNMENT AFFAIRS FELLOW - Last Filed: 11/13/24 17:21>
-
Portions of this chart may have been created with voice recognition software.� Occasional wrong word or��sound alike� substitutions may have occurred due to the inherent limitations of voice recognition software.
<Thuy Woods DO - Last Filed: 11/13/24 16:06>
ED Attending Note
Patient seen and examined by attending physician: Yes
I performed the substantive portion of visit, reviewed & personally made and approve the management plan that is documented in note by myself or GIANLUCA.: Yes
I performed a history and physical exam of patient and discussed management with resident, I reviewed resident's note and agree with documented findings and plan of care.: Yes
ED Attending Note:
89-year-old male with history of PE on Eliquis, history of prostate cancer status post prostatectomy and radiation with radiation cystitis, bilateral nephrostomy tubes presenting for generalized weakness. Patient has been generally fatigued for 3
weeks. notes that he has been unable to get out of his reclining chair for the past 3 days secondary to his symptoms. No known fevers. Patient required EMS to help get him out of the house. reports some poor appetite and some nausea.
Patient also has been having a chronic cough. Vital signs show tachycardia.
On exam patient is resting comfortably, no acute distress. On pulmonary exam, rhonchorous respirations bilaterally, mild increased work of breathing. On cardiac exam, A-fib with RVR, unclear history. Draining nephrostomy tubes bilaterally without
any erythema. No tenderness to the abdomen. In the setting of generalized weakness and fatigue with patient's symptoms, concern for infection with potential sources being urinary and pulmonary. Plan for laboratory analysis, IV fluids, urinalysis,
chest x-ray imaging.
15:30 - Patient's labs are significant for increasing leukocytosis with elevated lactic acid. Urine does show elements of infection and chest x-ray shows evidence of pneumonia. Starting broad-spectrum antibiotics and continuing IV fluids in the
setting of severe sepsis. Patient also with worsening kidney function, transaminitis, signs of endorgan dysfunction. Patient stable on supplemental O2. Patient's atrial fibrillation appears to be new, however holding antiarrhythmic medication due
to soft blood pressures. Will continue fluid resuscitation. Patient is already on anticoagulation. Plan for admission for concern of sepsis and generalized weakness
Discharge Plan
Departure
Patient Disposition: Admit
Date of Disposition: 11/13/24
Time of Disposition: 15:11
Presentation/result/management discussed w/ accepting MD/DO: Hospitalist
Condition: Serious
Discharge Problem:
Acute UTI, Sepsis, New onset a-fib, Atrial fibrillation with rapid ventricular response
Interventions
Interventions:
*Risk Screen - Suicide Last Done: 11/13/24 13:28
*General Assessment Last Done: 11/13/24 13:45
*Neglect/Abuse Screening Last Done: 11/13/24 13:28
*ED- Fall Risk Assessment Last Done: 11/13/24 13:28
*ED COVID-19 Vaccine History Last Done: 11/13/24 13:45
*ED Influenza Vaccine History Last Done: 11/13/24 13:45
ED-Male Genitourinary Assessment Last Done: 11/13/24 13:28
[2024-11-13 14:11] LABS: INR 2.36; PT 25.8 Sec (11.4-14.6)
[2024-11-13 14:20] LABS: Urine Character Slightly Cloudy (Clear)
[2024-11-13 14:20] LABS: Urine Squamous Cell 0-2 /LPF (Few)
[2024-11-13 14:23] LABS: ALT (SGPT) 153 U/L (0-50); AST (SGOT) 135 U/L (17-59); Albumin 3.4 g/dl (3.5-5.0); Alkaline Phosphatase 142 U/L (38-126); Blood Urea Nitrogen 85 mg/dl (9-20); Calcium 8.7 mg/dl (8.4-10.2); Carbon Dioxide 26 mmol/L (22-30); Chloride 105 mmol/L (98-107); Estimated Creatinine Clearance 26 ml/min; Glucose 158 mg/dl (70-99); Potassium 4.9 mmol/L (3.5-5.1); Sodium 141 mmol/L (135-145); Total Protein 7.2 g/dl (6.3-8.2); eGFR 28.28
[2024-11-13 14:24] LABS: Nucleated Red Blood Cells % 1.0 % (-)
[2024-11-13 14:27] LABS: Urine Red Blood Cell 0-2 /HPF (0-2); Urine Squamous Cell 0-2 /LPF (Few); Urine White Cell 30-40 /HPF (0-5)
[2024-11-13 14:30] LABS: COVID-19 Antigen Negative (Negative)
[2024-11-13] MEDS: NSS 1000 IV ×2 (14:31→20:48)
[2024-11-13] MEDS: ROCEPHIN 1000 MG IV (14:45)
[2024-11-13] MEDS: NSS 2400 ML IV (14:45)
--- NOTE | 2024-11-13 15:24 | HPS.HSE ---
Family Physician
-
Family Physician: Yuri Pineda
Chief Complaint
-
worsening fatigue
History of Present Illness
Patient is a 89-year-old male with past medical history significant for Hx pulmonary embolism who presented to [facility] ED for evaluation of worsening fatigue, dry cough, exertional dyspnea and poor appetite for 3-4 days. Patient with bilateral
nephrostomy tubes placed, 10/19/2024, a few weeks ago during hospitalization for acute hematuria with left tube replaced on 11/05/2024, for dysfunction. Patient reports visiting nurse visited today and called EMS to bring patient for evaluation. He
has been unable to get out of chair last several days but was able to ambulate with the assistance of EMS today. Patient denies fever, chills, chest pain, palpitations, nausea, vomiting, constipation, diarrhea or urinary symptoms.
Medical History
Past Medical History
Past Medical History: Reports Other
Additional Past Medical History:
Hx pulmonary embolism
Hx prostate cancer status post prostatectomy and radiation
Past Surgical History: Reports Other
Additional Past Surgical History:
prostatectomy
inguinal hernia repair
transurethral resection of the right ureteral orifice
bilateral nephrostomy tubes
Social History
Tobacco: Former Smoker
Alcohol: Occasional
Drug: None
Personal:
Living: With Family
Employment: Retired
Family History
Family History: Not pertinent
Allergies / Home Medications
Allergies reflects when Allergies were last updated in [employer].
Home Medications with original date entered in [employer]
Allergy/Medication List:
Allergies
Allergy/AdvReac Type Severity Reaction Status Date / Time
No Known Allergies Allergy Verified 11/13/24 13:27
Home Medications
apixaban 5 mg tablet (Eliquis) 5 mg PO BID Blood Clot Prevention/Tx #60 tabs 10/25/24
brimonidine 0.2 %-timolol 0.5 % eye drops 1 drp RIGHT EYE BID Eye Condition 11/13/24
therapeutic multivitamin 1 tab PO DAILY Supplement 11/13/24
tramadol 50 mg tablet 50 mg PO Q6HPRN PRN severe pain 11/13/24
Review of Systems
-
History Source: Patient
Constitutional: Reports Fatigue; Denies Fever or Chills
EENT: Denies Sore Throat or Runny Nose
Respiratory: Reports Cough (dry) and Trouble Breathing (exertional dyspnea ); Denies Hemoptysis
Cardiac: Denies Chest Pain, Diaphoresis, Palpitations or Syncope
Abdomen/GI: Denies Abdominal Pain, Nausea, Vomiting, Diarrhea or Constipated
: Reports Other (bilateral nephrostomy tubes )
Skin: Denies Rash
Neurological: Reports Weakness; Denies Dizzy, Headache or Numbness
Physical Exam
Vital Signs
Vital Signs
Temp Pulse Resp BP Pulse Ox
98 F 133 23 99/63 96
11/13/24 14:00 11/13/24 14:45 11/13/24 14:45 11/13/24 14:30 11/13/24 14:45
Physical Exam
General: Well Developed, Well Nourished, Comfortable and Conversant
HEENT: NormoCephalic, Moist mucous membranes, Atraumatic, Nose Appears Normal and Ears Appear Normal
Respiratory: Clear, Non Labored Respirations and Decreased Breath Sounds; No Wheezes, Rales or Rhonchi
Cardiac: S1/S2, Irregular Rhythm, Tachycardia and Peripheral Edema (bilateral lower extremity edema +1-2); No Murmur, Rub or Gallop
Breast: Deferred by me
GI: Soft, Non Tender, Non Distended and Normal Bowel Sounds; No Organomegaly
Rectal: Deferred by Provider
Genito-urinary: Clear Urine and Nephrostomy Tubes; No Bloody Urine
Musculoskeletal: No Clubbing and No Cyanosis
Skin: Warm and IV/Catheter Site
Neuro: Awake, AO x 3 and Nonfocal/grossly intact
Hematologic/Lymphatic: No Lymphadenopathy
Psych: Calm
Laboratory Results
-
11/13/24 13:52
11/13/24 13:52
Laboratory Results
PT 25.8 Sec (11.4-14.6) H 11/13/24 13:52
INR 2.36 11/13/24 13:52
Lactic Acid 3.3 mmol/L (0.7-2.0) H 11/13/24 13:52
Total Bilirubin 0.5 mg/dl (0.2-1.3) 11/13/24 13:52
AST 135 U/L (17-59) H 11/13/24 13:52
ALT 153 U/L (0-50) H 11/13/24 13:52
Alkaline Phosphatase 142 U/L (38-126) H 11/13/24 13:52
Data Reviewed
-
Diagnostic Radiology: Report Reviewed by me (CXR: New opacity of the mid left lung field concerning for pneumonia. Repeat exam in one to 2 weeks recommended following treatment to confirm improvement or resolution and exclude underlying mass.)
Medical Tests (Nuc Med, Echo, EKG etc): Report Reviewed by me (EKG: ATRIAL FIBRILLATION WITH RAPID VENTRICULAR RESPONSE)
Lab Data: Labs Reviewed by me (WBC 17.0, hgb 8.9, hct 28.8, BUN 85, Creat 2.2, est CrCl 26, eGFR 28.28, Lactic 3.3, AST 135, ALT 153, Alk Phos 142)
Impression/Plan
-
IMPRESSION/PLAN:
#worsening fatigue, dry cough, exertional dyspnea and poor appetite for 3-4 days 2/2 deconditioning vs. infectious process
#sepsis unknown origin UTI and/or PNA
WBC 17.0, Lactic 3.3
CXR: New opacity of the mid left lung field concerning for pneumonia. Repeat exam in one to 2 weeks recommended following treatment to confirm improvement or resolution and exclude underlying mass.
EKG: ATRIAL FIBRILLATION WITH RAPID VENTRICULAR RESPONSE
UA: indicative of UTI
Urine Cx: pending
Blood Cx: pending
Covid: negative
Influenza: negative
- Admit to telemetry
- IV Cefepime and PO doxycycline
- IVF NSS 100cc/hr
- trend Lactic acid
- supportive care
- Consult ID
#new onset atrial fibrillation
EKG: ATRIAL FIBRILLATION WITH RAPID VENTRICULAR RESPONSE
already on anticoagulant Eliquis for PE
- metoprolol 5mg IV q4PRN HR >130
- monitor on telemetry
- Consult Cardiology
#acute kidney injury likely 2/2 sepsis
BUN 85, Creat 2.2, est CrCl 26, eGFR 28.28
- IVF NSS
- trend renal function
#anemia
hgb 8.9, hct 28.8
- appears to be baseline
- monitor H/H
#Hx pulmonary embolism
- continue Eliquis
Code status: DNR
DVT prophylaxis: Eliquis
--- NOTE | 2024-11-13 15:24 | W.PN.UPDATE ---
Update Note
Progress Note Update
This note serves as an addendum to the H&P by assembler dc field ring GIANLUCA�
Lizbeth Charles
HPI
89M Obese HX , CA Prostae, HX hematuria related to XRT cystitis, HX RLLsegmental PEs October 10, 2024, on Eliquis, HX Prostatectomy 2004, bilateral nephrostomy tubes since October 2024 seen at ER:
- states it has returned with a PSA of 8, followed by Dr. Bustamante
- has bilateral PCN
- pw fatigue and cough past 3 weeks.
- chronic back pain'takes Tramadol prn.
- with patient states worsening fatigue and he has been unable to get out of his reclining chair for the past 3 days.
- no vomiting or diarrhea but states he has been nauseous and trying to throw up and his appetite has been poor
[facility] today and called EMS
Per EMS personnel he ambulated to the van.
PHX; as above
Relevant VS
11/13/24
13:28 11/13/24
13:28
Temp 97.5 F
Pulse 131
Resp Rate 16
Blood pressure 152/139
SaO2 98
Oxygen Mode of Delivery Room air
PE
Gen: lethargic and looks tired
HEENT: anicteric
Neck: supple
Lungs: symmetric AE
Cor: Irregular
Abdomen:�soft
: b/l PCN tubes, Both bag contained clear light yellow urine . NO HEMATURIA
CHEF KITCHEN MANAGER: awake , O3 , NFND
MS: dry skin
Psych: Nl affect
Relevant data�
11/05/24 11/09/24 11/13/24
08:27 12:05 13:52
WBC 14.1 H 17.0 H
Hgb 8.7 L 8.9 L
MCV 85.5 86.5
Plt Count 383 577 H D
INR 2.50 2.36
Carbon Dioxide 25 26
BUN 39 H 85 H
Creatinine 1.5 H 2.2 H
eGFR 44.78 28.28
Glucose 158 H
Lactic Acid 3.3 H
Iron 26 L
Erythropoietin 58 H
Ferritin 1330.0 H
AST 135 H
ALT 153 H
Alkaline Phosphatase 142 H
Lactate Dehydrogenase 546 H
Albumin 3.4 L
Albumin (PEP) 2.46 L
Pvgul-4-Dmkhkaexl 0.60 H
Jhwjg-5-Dazozxkft 1.37 H
Beta Globulins 1.06
Mgoa-1-Fpqgkxkwwxvuv 7.5 H
Gamma Globulins 1.52 H
Monoclonal and FLC EER See note
Vitamin B12 > 1000 H
Folate > 20.0 H
11/13/24
14:03
Leukocyte Esterase Rfl 3+ A
Urine RBC 0-2
Urine WBC (Reflex) 30-40 A
Ur Squamous Epith Cells 0-2
Urine Bacteria (Reflex) Moderate A
UCX sent
BCx sent
CXR
New opacity of the mid left lung field concerning for pneumonia.
Repeat exam in one to 2 weeks recommended following treatment to confirm improvement or resolution and exclude underlying mass.
EKG
TRIAL FIBRILLATION WITH RAPID VENTRICULAR RESPONSE
ABNORMAL ECG
WHEN COMPARED WITH ECG OF 21-Jul-2024 20:30,
ATRIAL FIBRILLATION HAS REPLACED SINUS RHYTHM
Confirmed by JUMA TALAVERA MD ([id number]) on 11/13/2024 3:06:17 PM
11/03/24 TTE
1. LVEF 70-75%
2. Right ventricular size and systolic function are within normal limits.
3. Mild aortic stenosis; peak/mean gradients 12/8 mmHg.
4. Mild to moderate tricuspid regurgitation. Estimated pulmonary artery pressure of 40 mmHg assuming a right atrial pressure of 3 mmHg.
5. There are no prior studies available for comparison.
Last hospitalist admission: Date of Admission: 10/14/24 - Date of Discharge: 10/25/24
DC DX: Hematuria with clots and acute urinary retention, acute blood loss anemia
ASSESSMENT & PLAN
Sepsis ( HR > 90 , WCC > 10)
Infective origin - PNA vs UTI ( abnormal US - suggestive of presumed male complicated UTI)
PNA @ [facility]
No prior POS MRSA screen
- Septic fluid bolus 2.4 L and cont IV NS
- Switch to IV CFP in place of CFTZ and plus PO Doxy
- Trend LA, WCC
- FU UCx and BCx
- FU T
- FU IPs, UO and daily wt
- ID consult
New onset FAF up to 130s - also septic mediated
Known Valvular insufficiency wiht mild , mild to mod TR
- LVEF 70-75
- Permissive VR - up to 125 due to sepsis
- IV Metoprolol 5mg q4h PRN for HR > 130
- On WEIR FISHER Eliquis for PE
- CBC card consult
ETHEL due to sepsis
CKD3b HX
B/L PCNs prior HX Obstructive nephrourography
- FU PCN output
- Trend Cr with Tx of sepsis
- If no progress with Cr, to consider Renal consult
HX Hematuria with clots and acute urinary retention: Currently no hematuria
HX recurrent XRT cystitis
- s/p cystoscopy, clot evacuation, bladder fulguration, and transurethral resection of the right ureteral orifice on 10/15 with Urology
- Observe hematuria and cont WEIR FISHER Eliquis
HX Segmental PE :
- Recently diagnosed 10/09/2024
- on Eliquis
Right lower lobe subsegmental PEs October 10, 2024)
- on Chr Eliquis
- Hold Eliquis due to Hematuria with clot retention
DVT Px: WEIR FISHER Eliquis
Full code
IP TLM
[2024-11-13] MEDS: VANCOCIN 540 MG IV (15:59)
--- NOTE | 2024-11-13 16:35 | CON.CAR ---
Addendum entered and electronically signed by Steffen Ruano MD 11/13/24 17:58:
I saw and evaluated the patient, and I provided the substantive portion of the medical decision making.
I reviewed and agree with the note by Ms carmona and it accurately reflects our care.
I personally performed the medical decision making of the this encounter and my assessment and plan is below:
He has sepsis and htis is likely driving his AF.
Allow permissive tachycardia initially. Will control HRs better when improved.
He is already on AC
Original Note:
Consultation
Consultation Request
Date/Time Consultation Requested: 11/13/2024 16:20
Date/Time Consultation Performed: 11/13/2024 16:40
Requesting Provider: WILLIE Sommer
Performing Provider: WILLIE Barnett for Dr. Ruano
Reason for Consultation: New onset atrial fibrillation
Medical History
-
Chief Complaint: Worsening fatigue
History of Present Illness:
Eric Barrera is an 89-year-old male (known to Dr. Leavitt, his primary billing customer service representative), with pulmonary embolism (on apixaban) and prostate cancer who presented to the emergency department with a chief complaint of worsening fatigue and associated
exertional dyspnea. He has also had poor oral intake for at least 3 days. Cardiology was consulted for new onset atrial fibrillation. He had a recent hospitalization earlier this month requiring bilateral nephrostomy tubes to be placed in the
setting of recurrent/refractory hematuria due to radiation cystitis and ETHEL. He denies chest pain, palpitations, and syncope/presyncope.
Past Medical History
Past Medical History: Cancer (Prostate) and Other (Pulmonary embolism)
Past Surgical History: Urological
Social History
Tobacco: Former Smoker
Personal:
Living: With Family
Employment: Retired
Family History
Family History: Reviewed & Not Pertinent
Allergies / Home Medications
Allergy/AdvReac Type Severity Reaction Status Date / Time
No Known Allergies Allergy Verified 11/13/24 13:27
�Medication �Instructions �Recorded �Confirmed �Type
apixaban 5 mg tablet (Eliquis) 5 mg PO BID Blood Clot 10/25/24 11/13/24 Rx
Prevention/Tx #60 tabs
brimonidine 0.2 %-timolol 0.5 % 1 drp RIGHT EYE BID Eye Condition 11/13/24 11/13/24 History
eye drops
therapeutic multivitamin 1 tab PO DAILY Supplement 11/13/24 11/13/24 History
tramadol 50 mg tablet 50 mg PO Q6HPRN PRN severe pain 11/13/24 11/13/24 History
Review of Systems
-
History Source: Patient
All other systems: Negative unless noted
Constitutional: Fatigue
EENT: No Symptoms
Respiratory: Trouble Breathing
Cardiac: No Symptoms
Abdomen/GI: Anorexia
: No Symptoms
Musculoskeletal: No Symptoms
Skin: No Symptoms
Neurological: Weakness
Endocrine: No Symptoms
Physical Exam
Vital Signs
Temp Pulse Resp BP Pulse Ox
98 F 132 25 106/84 95
11/13/24 14:00 11/13/24 16:15 11/13/24 16:15 11/13/24 16:00 11/13/24 16:20
Lab Results
11/13/24 13:52
11/13/24 13:52
Physical Exam
General: Well Developed and No Apparent Distress
HEENT: Normocephalic and Anicteric
Respiratory: Clear and Non Labored Respirations
Cardiac: S1/S2, Irregular Rhythm and Peripheral Edema (+2 B/L LE)
Breast: Deferred by me
GI: Soft, Non Tender, Non Distended and Normal Bowel Sounds
Rectal: Deferred by Provider
Genito-urinary: No Costovertebral Tender
Musculoskeletal: No Clubbing and No Cyanosis
Skin: Warm and Dry
Neuro: Awake and Alert
Hematologic/Lymphatic: No Lymphadenopathy
Psych: Calm
Impression / Plan
-
I/P: 89M with pulmonary embolism (on apixaban) and prostate cancer who presented to the emergency department with a chief complaint of worsening fatigue and associated exertional dyspnea.
Primary billing customer service representative: Dr. Leavitt
Sepsis
- Leukocytosis, lactic acidosis, and ETHEL
- Cultures are pending
- Fluid resuscitation and antibiotics per primary service, follow LE edema
Atrial fibrillation with rapid ventricular response, new diagnosis
- Rate control with beta-concepcion
- Oral Anticoagulation: Already on apixaban 5 mg twice daily for PE, continue
- [id number]: score at least 3 (age 75 or more, Vascular disease)
ETHEL
- Bilateral nephrostomy tubes for recurrent/refractory hematuria due to radiation cystitis (10/19/2024)
Aortic stenosis, mild, peak/mean gradients 12/8 mmHg
History of PE (right lower lobe, 10/09/2024), on apixaban 5 mg twice daily
Prostate cancer, follows with Dr. Bustamante
DATA:
Transthoracic echocardiogram, 11/03/2024:
1. Ejection fraction is 70-75% by visual assessment.
2. Right ventricular size and systolic function are within normal limits.
3. Mild aortic stenosis; peak/mean gradients 12/8 mmHg.
4. Mild to moderate tricuspid regurgitation. Estimated pulmonary artery pressure of 40 mmHg assuming a right atrial pressure of 3 mmHg.
Data Reviewed
-
EKG: Report Reviewed by me (Atrial fibrillation with rapid ventricular response, rate 129)
Radiology: Report Reviewed by me (New opacity of the mid left lung field concerning for pneumonia. Repeat exam in one to 2 weeks recommended following treatment to confirm improvement or resolution and exclude underlying mass.)
Medical Tests (Nuc Med, Echo etc): Report Reviewed by me
Labs: Labs Reviewed by me
Old Records: Reviewed
[2024-11-13] MEDS: LOPRESSOR 2.5 MG IV (17:48)
[2024-11-13] MEDS: MAXIPIME 2000 MG IV (20:48)
[2024-11-13] MEDS: ALPHAGAN 0.2% EYE DROPS 1 DROP RIGHT EYE (21:05)
[2024-11-13] MEDS: ELIQUIS 5 MG PO (21:05)
[2024-11-13] MEDS: VIBRAMYCIN 100 MG PO (21:05)
[2024-11-13] MEDS: TIMOPTIC 0.5% OPHTHALMIC SOLUTION 1 DROP RIGHT EYE (21:06)
[2024-11-14] VITALS (7 sets, daily range): BP systolic 96–126; BP diastolic 57–74; BMI 24.5
[2024-11-14] MEDS: MAXIPIME 2000 MG IV (02:23)
[2024-11-14] MEDS: NSS 1000 IV ×2 (05:49→15:08)
--- NOTE | 2024-11-14 08:03 | W.PN.CD ---
Addendum entered and electronically signed by Steffen Ruano MD 11/14/24 14:25:
I saw and evaluated the patient, and I provided the substantive portion of the medical decision making.
I reviewed and agree with the note by Ms Esparza and it accurately reflects our care.
I personally performed the medical decision making of the this encounter and my assessment and plan is below:
- IV Dilt
- patient improved today
- likley start PO tomorrow
Original Note:
Today's Communication / Plan
-
Start diltiazem bolus and drip
Impression / Plan
-
I/P: 89M with pulmonary embolism (on apixaban) and prostate cancer who presented to the emergency department with a chief complaint of worsening fatigue and associated exertional dyspnea.
Primary top polisher: Dr. Leavitt
Sepsis
- Leukocytosis, lactic acidosis, and ETHEL -> resolving
- Cultures are pending -> one blood culture is positive (Gram negative bacilli)
- CXR with left midlung opacity, moist nonproductive cough on exam, per primary
- Fluid resuscitation and antibiotics per primary service
Atrial fibrillation with rapid ventricular response, new diagnosis
- Rate controlled with diltiazem drip, 5 mg bolus with 5 mg/hour to follow
- Can consider amiodarone, he has been on apixaban for greater than 4 weeks without missed doses
- Oral Anticoagulation: Already on apixaban 5 mg twice daily for PE, continue
- [id number]: score at least 3 (age 75 or more, Vascular disease)
ETHEL
- Slowly improving
- Bilateral nephrostomy tubes for recurrent/refractory hematuria due to radiation cystitis (10/19/2024)
Lower extremity edema
- Appears similar to yesterday, follow
Anemia, acute on chronic
Aortic stenosis, mild, peak/mean gradients 12/8 mmHg
History of PE (right lower lobe, 10/09/2024), on apixaban 5 mg twice daily
Prostate cancer, follows with Dr. Bustamante
DATA:
Transthoracic echocardiogram, 11/03/2024:
1. Ejection fraction is 70-75% by visual assessment.
2. Right ventricular size and systolic function are within normal limits.
3. Mild aortic stenosis; peak/mean gradients 12/8 mmHg.
4. Mild to moderate tricuspid regurgitation. Estimated pulmonary artery pressure of 40 mmHg assuming a right atrial pressure of 3 mmHg.
Physical Exam
Vital Signs/Labs
Vital Signs
Temp Pulse Resp BP Pulse Ox
97.7 F 122 16 112/62 98
11/14/24 03:11 11/14/24 03:11 11/14/24 03:11 11/14/24 03:11 11/14/24 03:11
11/13/24 11/14/24 11/15/24
06:59 06:59 06:59
Actual Weight 81.873 kg
PT 25.8 Sec (11.4-14.6) H 11/13/24 13:52
INR 2.36 11/13/24 13:52
Physical Exam
Constitutional: No acute distress and Comfortable
EENT: Anicteric and Moist mucous membranes
Cardiovascular: Rhythm/rate is irregular, S1S2 is normal and Other (Bilateral ankle edema)
Respiratory: Rhonchi Present
GI: Soft, Distention absent, Flat and Non tender
Neuro/Psych: Alert and Oriented
Other: Skin (Warm and dry)
Data Reviewed
-
Date of Service: November 14, 2024
Labs: Labs Reviewed by me
Old Records: Reviewed
[2024-11-14 08:09] LABS: Hematocrit 23.6 % (39.0-52.0); Hemoglobin 7.2 g/dL (13.0-18.0); Mean Corp Hgb Conc. 30.5 g/dL (33.0-37.0); Mean Corpuscular Volume 86.4 fL (80.0-94.0); Platelet Count 378 10^3/uL (130-400); Red Cell Dist. Width 16.1 % (11.5-14.5)
--- NOTE | 2024-11-14 08:20 | VNURNOTE ---
Chart reviewed. Patient is current with [facility]. Will continue to follow hospital course and DC plans.
[2024-11-14] MEDS: ALPHAGAN 0.2% EYE DROPS 1 DROP RIGHT EYE ×2 (08:24→19:52)
[2024-11-14] MEDS: ELIQUIS 5 MG PO ×2 (08:25→19:52)
[2024-11-14] MEDS: TIMOPTIC 0.5% OPHTHALMIC SOLUTION 1 DROP RIGHT EYE ×2 (08:25→19:52)
[2024-11-14] MEDS: VIBRAMYCIN 100 MG PO ×2 (08:26→19:52)
[2024-11-14 08:31] LABS: ALT (SGPT) 105 U/L (0-50); AST (SGOT) 78 U/L (17-59); Albumin 2.6 g/dl (3.5-5.0); Alkaline Phosphatase 111 U/L (38-126); Blood Urea Nitrogen 68 mg/dl (9-20); Calcium 7.9 mg/dl (8.4-10.2); Carbon Dioxide 21 mmol/L (22-30); Chloride 116 mmol/L (98-107); Estimated Creatinine Clearance 36 ml/min; Glucose 104 mg/dl (70-99); Potassium 4.7 mmol/L (3.5-5.1); Sodium 143 mmol/L (135-145); Total Protein 5.9 g/dl (6.3-8.2); eGFR 41.44
[2024-11-14] MEDS: CARDIZEM 5 MG IV (09:45)
[2024-11-14] MEDS: CARDIZEM 125 IV (09:48)
--- NOTE | 2024-11-14 09:56 | W.PN.HOSP.TC ---
Addendum entered and electronically signed by Julio Reed DO 11/15/24 12:39:
Holly #CDI: UTI associated with nephrostomy tube
Addendum entered and electronically signed by Julio Reed DO 11/15/24 09:11:
CDI: Sepsis only, unstageable pressure decubitus ulcer (POA)
Original Note:
Today's Communication/Plan
-
Plan reviewed with attending
Iron panel
Abx per ID
MRi to r/o osteo
repeat afternoon CBC
Diltiazem per cardio
Assessment / Plan
Assessment / Plan
89yoM PMH PE on eliquis, prostate cx s/p prostatectomy and RT, nephrostomy tubes placed 10/19 and irrigated 11/06 presenting with fatigue, SOB, cough.
AFVSS today except found to be in new afib. Cardiology initially started on metoprolol and transitioned to cardizem drip. Hgb 7.2 down from 8.9 yesterday after fluid resuscitation. Leukocytosis improving on abx 11.4 down from 17. Electrolytes WNL.
BUN/Cr improved from yesterday 85/2.2 respectively to 68/1.6. UA +leukoesterase, bacteria, WBC. BC + Enterobacter. hx Enterobacter sensitive to cefepime 09/2024. Wound care found sacral, deep ulcers determined to be unstageable.
Most likely multifactorial infection from urine, pneumonia, and possibly ulcers
#pneumonia
#leukocytosis
#gram negative bacteremia
#sepsis
#lactic acidosis
- ABX: cefepime and doxycycline. renally adjusted per pharmacy
- ID following
- IVF
- lactic acid 3.3 down to 1.7 improved
- Encourage IS
#sacral ulcers
- MR pelvis to r/o osteomyelitis
- On abx already for pneumonia and bacteremia
#afib
- On eliquis at baseline, continue
- Diltiazem drip 5
#normocytic anemia
- Iron studies, B12, folate
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
- IVF
- improving
Chronic
- irradiation cystitis
Anticipated Discharge: 24 - 48 hours
Subjective/Interval History
-
Date of Service: November 14, 2024
Pt reports new cough, fatigue, and SOB. Denies dysuria but has nephrostomy tubes in place. Denies blood in bags. He does report improvement today vs yesterday. Denies abdominal pain.
Of note, follows at [facility] for new elevation in PSA s/p prostatectomy and RT.
Objective Data
-
Labs:
Laboratory Results
11/14/24
07:06
WBC 11.4 H
Hgb 7.2 L
Hct 23.6 L
Plt Count 378 D
Sodium 143
Potassium 4.7
Chloride 116 H
Carbon Dioxide 21 L
BUN 68 H
Creatinine 1.6 H
Glucose 104 H
Calcium 7.9 L
Total Bilirubin 0.4
AST 78 H
ALT 105 H
Alkaline Phosphatase 111
Vital Signs:
Vital Signs
Temp Pulse Resp BP Pulse Ox
97.6 F 122 16 103/67 92
11/14/24 08:05 11/14/24 09:45 11/14/24 08:05 11/14/24 09:45 11/14/24 08:05
I&O
11/13/24 11/14/24 11/15/24
06:59 06:59 06:59
Intake Total 1440 / 1440
Output Total 550 / 550
Balance 890 / 890
Review of Systems
-
History Source: Patient
All other systems: Reviewed and negative
Constitutional: Reports Fatigue; Denies Fever
Respiratory: Reports Cough and Trouble Breathing
Abdomen/GI: Denies Abdominal Pain, Nausea or Vomiting
Genitourinary: Reports Other (nephrostomy); Denies Flank Pain
Physical Exam
-
General: No Apparent Distress and Comfortable
HEENT: Normocephalic, Atraumatic and Moist Mucous Membranes
Respiratory: Clear to Auscultation (between coughs, lungs sounded clear)
Cardiac: S1/S2 and Irregular Rhythm (in afib)
GI: Nontender and Nondistended
Genito-urinary: Nephrostomy Tubes (yellow)
Skin: Warm and Dry
Neuro: AO x 3 and Nonfocal/Grossly Intact
Psych: Calm
--- NOTE | 2024-11-14 10:20 | WOUNDNOTE ---
GLUTEAL CLEFT VERTICAL AND B/L BUTTOCKS
--- NOTE | 2024-11-14 10:25 | WOUNDNOTE ---
WON RN note: Patient admitted with Acute UTI, sepsis and A fib.
See H&P for complete history. Lives with , current with VN.
PMH: ED Past Medical History: Cancer (prostate), Hypercholesterolemia, Other (History of hematuria related to radiation cystitis) and Other (Right lower lobe subsegmental PEs October 10, 2024)
ED Past Surgical History: Urological (Prostatectomy 2004, bilateral nephrostomy tubes October 2024)
Wound Location and type/assessment: Patient admitted with: Unstageable PI to gluteal cleft vertical. Base greyish crews, friable edges- patient on Eliquis. Periwound blanchable red. B/L buttocks with streaks of dark maroon non blanchable redness,
suspect DTI vs stage 1 PI. Patient confirmed he has been sitting allot at home and does not use an offloading cushion. Per ER note patient sat in chair for 3 days and appetite has been poor. Patient using oxygen via NC, ear rims intact. Patient
turned with assist of nursing students, soiled Ultrasorb pads with moderate urine. web design instructor mentioned plan to apply male Purwick. Heels are intact, pillow under calves. Nephrostomy tubes intact.
Appetite: Poor.
Pressure redistribution devices in place: On Versa care air bed, turning schedule, pillow under calves. Limit time oob to chair for meals only, use air cushion when sitting.
Plan: Confirmed with Dr. Reed and Resident Lalo MRI to be ordered to rule out osteomyelitis and Ok with Santyl dressing. Adaptic and large silicone foam applied today to gluteal cleft and buttocks. Recommend surgical consult if MRI + for
osteo. Updated nurse Sabina, care plan and will follow as needed.
Note to case management of equipment requested for discharge: Air mattress.
Recommend follow up at wound care center upon discharge.
[2024-11-14 11:34] LABS: Reticulocyte Count 3.0 % (0.4-2.8)
[2024-11-14 11:42] LABS: Iron 35 ug/dl (49-181)
--- NOTE | 2024-11-14 11:46 | CON.ID ---
Consultation
-
Date/Time Consultation Requested: November 13, 2024
Date/Time Consultation Performed: November 14, 2024 1150
Requesting Provider: Dr. Julio Reed
Performing Provider: Dr. Debbi Bui
Reason for Consultation: Sepsis
Chief Complaint / Past History
Chief Complaint
Weakness
History of Present Illness
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
The left nephrostomy malfunctioned and replaced on 11/05. Pt c/o of several day history of progressive weakness, SOB, and dry cough. No fevers or chills at home. No flank pain. No hematuria. No diarrhea. he presented to ED 11/13 -wbc 17, R
nephrostomy urine with 3+LE, 30-40 WBC, CXR new left mid lung opacity. He is currently on cefepime, doxycycline. Developed new-onset A. fib.
Past History
Additional Past Medical History:
PE on Eliquis
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
Radiation cystitis
Bilateral ureteral obstruction status post bilateral percutaneous nephrostomy placement October 19, 2024
Allergy History:
No Known Allergies Allergy (Verified 11/13/24 13:27)
Medications Reviewed: Yes
Current Antibiotics:
Cefepime
Doxycycline
Status post vancomycin
Social History
Tobacco: Former Smoker
Alcohol: None
Drug: None
Personal:
Living: With Family
Family History
Family History: Not Pertinent
Review of Systems
Review of Systems
General: Change in Appetite
HEENT: Negative Sinus Problems or Headache
Cardiovascular: Dyspnea; Negative Chest Pain
Respiratory: Dyspnea and Cough; Negative Sputum Production
Gasteroenterology: Negative Nausea, Vomiting or Diarrhea
Genital / Urological: Negative Hematuria or Flank Pain
Endocrine: Weakness and Fatigue
Skin / Hair / Nails: Negative Rash
All systems: All other systems were reviewed and were negative
Vital Signs
Temp Pulse Resp BP Pulse Ox
98.1 F 115 20 96/59 98
11/14/24 11:31 11/14/24 11:31 11/14/24 11:31 11/14/24 11:31 11/14/24 11:31
Physical Exam
Physical Exam
Constitutional: Acutely Ill
Head: Other (No frontal or maxillary sinus tenderness)
Eyes: No Conjunctival Hemorrhage and Sclera Anicteric
Cardiovascular: S1/S2 (tacchycardic)
Pulmonary: Rales (left base crackles)
Gastrointestinal: Soft, Non Tender, Non Distended and Normal Bowel Sounds
Genito-Urinary: Clear Urine (Bilateral nephrostomy)
Extremities: Negative Edema
Neurological: AO x 3 and Other (drowsy)
Lab / Diagnostic Study Results
11/14/24 07:06
Abs Immat Gran (auto) 0.5 10^3/uL (0-0.05) H 11/13/24 13:52
Absolute Neuts (auto) 12.6 10^3/uL (1.4-6.5) H 11/13/24 13:52
Absolute Lymphs (auto) 3.3 10^3/uL (1.2-3.4) 11/13/24 13:52
Absolute Monos (auto) 0.6 10^3/uL (0.1-0.6) 11/13/24 13:52
Absolute Basos (auto) 0.0 10^3/uL (0-0.2) 11/13/24 13:52
Immature Gran % 3.1 % (0-0.5) H 11/13/24 13:52
Neutrophils % 73.7 % (42.2-75.2) 11/13/24 13:52
Lymphocytes % 19.2 % (20.5-51.1) L 11/13/24 13:52
Monocytes % 3.3 % (1.7-9.3) 11/13/24 13:52
Eosinophils % 0.5 % (0-6) 11/13/24 13:52
Basophils % 0.2 % (0-2) 11/13/24 13:52
PT 25.8 Sec (11.4-14.6) H 11/13/24 13:52
INR 2.36 11/13/24 13:52
Lactic Acid Cancelled 11/14/24 06:23
Ur Squamous Epith Cells 0-2 /LPF (Few) 11/13/24 14:03
Microbiology Results
Micro:
11/13/24 14:03 Blood Culture - Preliminary
Blood/Venous Enterobacter cloacae complex
Gram Stain - Preliminary
11/13/24 13:54 Influenza Types A & B (VALERIE) - Final
Nasal Swab Negative for Influenza A & B, NAAT
Negative results must be combined with clinical observations
and patient history.
Nucleic Acid Amplification test (NAAT)performed on the
[employer] platform.
11/13/24 14:03 Urine Culture - Pending
Urine
11/13/24 13:52 Urine Culture - Pending
Urine
11/13/24 13:54 Blood Culture - Pending
Blood/Venous
11/13/24 CXR: New opacity of the mid left lung field concerning for pneumonia.
Assessment / Plan
# Complicated UTI
# Enterobacter cloacae bacteremia, source
# hx bilateral perc nephrostomy placed 10/19/24, left nephrostomy exchanged 11/05/24
-Nephrostomy urine cx: Enterobacter and Enterococcus faecalis
- Agree with IV cefepime. Enterobacter cloacae is amp-C promotions producer, tends to confer intrinsic resistance to ceftriaxone and Zosyn.
-Add po amoxicillin to cover Enterococcus faecalis
# Left pneumonia
# Cough
- Check urine legionella and strep pneumococcal Ag
- Sputum cx
- Continue cefepime and doxycyline
# Leukocytosis
-Trend wbc
# ETHEL
- Adjust abx dose as needed
- Follow renal function.
Conditions present on admission:
PE on Eliquis
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
Radiation cystitis
Bilateral ureteral obstruction status post bilateral percutaneous nephrostomy placement October 19, 2024
[2024-11-14 11:51] LABS: Total Iron Binding Capacity 200 ug/dl (261-462)
[2024-11-14 12:18] LABS: Ferritin 661.0 ng/ml (17.9-464.0)
--- NOTE | 2024-11-14 12:22 | CM ---
manager film reviewed patient's chart and met with patient and patient lives with his spouse in a ist floor apartment with one step to enter, patient is independent with adl's and and patient drives, patient is current with [facility], patient is
currently on 3 liters of oxygen, will follow for any oxygen needs at discharge.
PCP: Dr. Pineda
Pharmacy: [facility] in [place]
[2024-11-14 12:49] LABS: Folate > 20.0 ng/ml (2.76-20); Vitamin B12 999 pg/ml (239-931)
--- NOTE | 2024-11-14 12:49 | W.PN.UPDATE ---
Update Note
Progress Note Update
I have independently evaluated the patient at the bedside.� I reviewed the case with the resident and agree with all documentation unless otherwise pacified.
AFVSS this morning, HR near 120 in AF.� Patient states he feels tired though no worse than on admission.� Denies any other new complaint
AO x 4, NAD.� Frail-appearing.� Irregularly irregular rhythm with tachycardia, 2/6 YADIEL, normal S1 and 2.� Lungs clear bilaterally.� Abdomen benign.� No edema or JVD, palpable pulses.� Skin warm and dry. �Neurologically intact
#Enterobacter bacteremia due to CAP +/- UTI. �S/p bilateral nephrostomy.� Blood cultures positive, urine culture pending.� Currently on IV cefepime and doxycycline.� ID consulted.� Will add on urine Streptococcus and Legionella antigens for
completeness.� Continue with current antibiotics and trend CBC and temperature curve.� Check sputum culture if able to produce sample
#New onset AF.� [id number] 2-3.� Already on Eliquis for history of PE.� Started on diltiazem drip by cardiology.� Will continue with diltiazem drip and plan to transition to p.o. diltiazem XR 120 mg tomorrow stable.� Continue on telemetry
#Acute kidney injury.� Prerenal in the context of bacteremia. Creatinine 2.2 on arrival, down to 1.6 with IV fluids. �Will continue with maintenance fluids and trend BMP.� Avoid nephrotoxins.
#Anemia of chronic disease.� Possibly worsened with above ETHEL and reduced EPO capacity iron studies with ferritin 661, no signs of hemolysis.� Hemoglobin down trended from 8.9-7.2 after IVF.� Will continue to trend CBC and provide supportive
transfusion for hemoglobin <7 or symptoms of anemia.� Monitor for bleeding, consider holding DOAC if hemoglobin continues to downtrend
#Unstageable sacral wound.� Will order MRI with and without contrast to assess for osteomyelitis.� Wound care consulted otherwise
Diet � Regular
DVT prophylaxis � Home DOAC
CODE STATUS � DNR
Disposition � PT consulted, likely discharge > 48 hours
--- NOTE | 2024-11-14 14:59 | PN.CDI ---
CDI
- -
CDI:
Physician Documentation Request
Admit Date: 11/13/24 17:08
Dear Doctor Lalo,
Hospitalist note states 'sacral ulcers'
Physician documentation of the type and location of wounds is required for compliant documentation. Based on the above clinical findings and your assessment, please provide the following in your progress note:
Type (etiology) of ulcer/wound:
- Traumatic wound
- Pressure (decubitus) ulcer
- Other
Use of terms such as suspected, likely, concern for, or probable (associated with a specific diagnosis that is being evaluated, monitored, or treated as if it exists) are acceptable and can be coded in the inpatient setting, when documented at the
time of discharge.
Thank you,
Billie Marquez RN, BSN
CDI Specialist
tiger text
Please use your independent medical judgment in providing your response.
*Source: National Pressure Ulcer Advisory Panel (NPUAP)
--- NOTE | 2024-11-14 15:03 | PN.CDI ---
CDI
- -
CDI:
Physician Documentation Request
Admit Date: 11/13/24 17:08
Dear Doctor Lalo,
Hospitalist note states 'sacral ulcers'
[facility] note states ' Unstageable PI to gluteal cleft vertical' and 'B/L buttocks with streaks of dark maroon nonblanchable redness suspected DTI vs stage 1 PI'
Physician documentation of the type and location of wounds is required for compliant documentation. Based on the above clinical findings and your assessment, please provide the following in your progress note:
Type (etiology) of ulcer/wound:
- Traumatic wound
- Pressure (decubitus) ulcer
- Other
Use of terms such as suspected, likely, concern for, or probable (associated with a specific diagnosis that is being evaluated, monitored, or treated as if it exists) are acceptable and can be coded in the inpatient setting, when documented at the
time of discharge.
Thank you,
Billie Marquez RN, BSN
CDI Specialist
tiger text
Please use your independent medical judgment in providing your response.
*Source: National Pressure Ulcer Advisory Panel (NPUAP)
--- NOTE | 2024-11-14 15:06 | PN.CDI ---
CDI
- -
CDI:
Physician Documentation Request
Admit Date: 11/13/24 17:08
Dear Doctor Lalo,
Patient is being treated for sepsis, raúl, pneumonia.
LA on admission was 3.3
Please clarify which of the following most accurately describes the status of the patient's infection:
Severe Sepsis
- Sepsis with associated acute organ dysfunction, such as renal or respiratory failure
Sepsis only
Other
Use of terms such as suspected, likely, concern for, or probable (associated with a specific diagnosis that is being evaluated, monitored, or treated as if it exists) are acceptable and can be coded in the inpatient setting, when documented at the
time of discharge.
Thank you,
Billie Marquez RN, BSN
CDI Specialist
tiger text
Please use your independent medical judgment in providing your response.
[2024-11-14] MEDS: AMOXIL 500 MG PO ×2 (16:37→23:29)
[2024-11-14] MEDS: MAXIPIME 1000 MG IV ×2 (16:38→23:28)
[2024-11-14] MEDS: STERILE WATER FOR INJECTION 10 ML IV ×2 (16:38→23:29)
--- NOTE | 2024-11-14 16:43 | PTCARENOTE ---
Outpatient Nutrition Consult for weight loss received - Noted history of metastatic prostate cancer. Called patient but spoke with who reported Eric is currently in the hospital but they would be interested in nutrition consultation when he
is discharged. He has recently lost about 15 pounds and has a decreased appetite. Provided with RDN contact and encouraged to call when able for outpatient nutrition consultation.
[2024-11-14 20:29] LABS: Hematocrit 26.3 % (39.0-52.0); Hemoglobin 8.0 g/dL (13.0-18.0); Mean Corp Hgb Conc. 30.4 g/dL (33.0-37.0); Mean Corpuscular Volume 88.3 fL (80.0-94.0); Platelet Count 506 10^3/uL (130-400); Red Cell Dist. Width 16.1 % (11.5-14.5)
[2024-11-15] VITALS (8 sets, daily range): BP systolic 101–137; BP diastolic 58–76; PULSE 87; O2SAT 95
[2024-11-15] MEDS: NSS 1000 IV ×3 (01:22→14:07)
--- NOTE | 2024-11-15 07:36 | W.PN.HOSP.TC ---
Today's Communication/Plan
-
Plan reviewed with attending
cont abx per ID
Pelvis MRI
PT/OT
Ensure added to diet. Encourage PO intake
Assessment / Plan
Assessment / Plan
89yoM PMH PE now on eliquis, prostate cx s/p prostatectomy and RT, nephrostomy tubes placed 10/19 and irrigated 11/06 presenting with fatigue, SOB, cough.
AFVSS except found to be in new afib. Cardiology initially started on metoprolol and transitioned to cardizem drip. Hgb 7.2 down from 8.9 yesterday after fluid resuscitation. Leukocytosis improving on abx 11.4 down from 17. Electrolytes WNL. BUN/Cr
improved from yesterday 85/2.2 respectively to 68/1.6. UA +leukoesterase, bacteria, WBC. BC + Enterobacter. hx Enterobacter sensitive to cefepime 09/2024. Wound care found sacral, deep ulcers determined to be unstageable.
Today, pt reverted out of afib. AFVSS. Leukocytosis improved WBC 12. ETHEL improving bun 48, cr 1.4. 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 F/u outpt.
Ferritin elevated as acute phase reactant. Retic 3% appropriately producing RBC. Hgb stable
Most likely multifactorial infection from urine, pneumonia, and possibly ulcers. ID following
#pneumonia
#leukocytosis
#gram negative bacteremia
#sepsis
#lactic acidosis
#UTI undetermined if caused by nephrostomy tubes, likely culprit
- ABX: cefepime and doxycycline. renally adjusted per pharmacy. Id added amoxicillin
- ID following
- IVF
- lactic acid 3.3 down to 1.7 improved
- Encourage IS
- PT/OT
#decubitus sacral ulcers
- MR pelvis to r/o osteomyelitis
- On abx already for pneumonia and bacteremia
- Wound care
#paroxysmal afib
- On eliquis at baseline, continue
- Diltiazem drip 5 off. NS
#normocytic anemia
- Iron studies, B12, folate came bakc normal
- Anemia of chronic dx
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
- IVF
- improving
Chronic
- irradiation cystitis
Anticipated Discharge: 24 - 48 hours
Subjective/Interval History
-
Date of Service: November 15, 2024
Pt reports feeling better today with continued fatigue and reduced appetite. Pt reports he did not realize how severe the decubital ulcers were but he has pain near them.
Lives at home with . reports he is stopping by later
Objective Data
-
Labs:
Laboratory Results
11/14/24 11/15/24
20:17 07:27
WBC 16.6 H Pending
Hgb 8.0 L Pending
Hct 26.3 L Pending
Plt Count 506 H D Pending
Sodium Pending
Potassium Pending
Chloride Pending
Carbon Dioxide Pending
BUN Pending
Creatinine Pending
Glucose Pending
Calcium Pending
Total Bilirubin Pending
AST Pending
ALT Pending
Alkaline Phosphatase Pending
Vital Signs:
Vital Signs
Temp Pulse Resp BP Pulse Ox
97.0 F 101 18 101/58 98
11/15/24 03:17 11/15/24 03:17 11/15/24 03:17 11/15/24 03:17 11/15/24 03:17
I&O
11/14/24 11/15/24 11/16/24
06:59 06:59 06:59
Intake Total 1440 / 1440 1854 / 1854
Output Total 550 / 550 635 / 635
Balance 890 / 890 1219 / 1219
Physical Exam
-
General: No Apparent Distress, Comfortable and Appears Chronically Ill
HEENT: Normocephalic, Atraumatic and Moist Mucous Membranes
Respiratory: Clear to Auscultation (cough, otherwise clear)
Cardiac: Regular Rhythm and S1/S2
GI: Soft, Nontender and Nondistended
Skin: Warm and Dry
Neuro: AO x 3, No Motor Deficits and Nonfocal/Grossly Intact
Psych: Calm
[2024-11-15 08:45] LABS: Hematocrit 25.2 % (39.0-52.0); Hemoglobin 7.7 g/dL (13.0-18.0); Mean Corp Hgb Conc. 30.6 g/dL (33.0-37.0); Mean Corpuscular Volume 89.7 fL (80.0-94.0); Nucleated Red Blood Cells % 0.3 % (-); Platelet Count 470 10^3/uL (130-400); Red Cell Dist. Width 16.7 % (11.5-14.5)
[2024-11-15] MEDS: AMOXIL 500 MG PO ×3 (09:12→23:31)
[2024-11-15] MEDS: VIBRAMYCIN 100 MG PO ×2 (09:12→20:38)
[2024-11-15] MEDS: ELIQUIS 5 MG PO ×2 (09:13→20:38)
[2024-11-15 09:17] LABS: ALT (SGPT) 85 U/L (0-50); AST (SGOT) 60 U/L (17-59); Albumin 2.8 g/dl (3.5-5.0); Alkaline Phosphatase 127 U/L (38-126); Blood Urea Nitrogen 48 mg/dl (9-20); Calcium 8.3 mg/dl (8.4-10.2); Carbon Dioxide 21 mmol/L (22-30); Chloride 117 mmol/L (98-107); Estimated Creatinine Clearance 41 ml/min; Glucose 108 mg/dl (70-99); Potassium 4.4 mmol/L (3.5-5.1); Sodium 145 mmol/L (135-145); Total Protein 6.6 g/dl (6.3-8.2); eGFR 48.65
[2024-11-15] MEDS: TIMOPTIC 0.5% OPHTHALMIC SOLUTION 1 DROP RIGHT EYE ×2 (09:26→20:38)
[2024-11-15] MEDS: MAXIPIME 1000 MG IV ×3 (09:26→23:32)
[2024-11-15] MEDS: ALPHAGAN 0.2% EYE DROPS 1 DROP RIGHT EYE ×2 (09:26→20:38)
[2024-11-15] MEDS: STERILE WATER FOR INJECTION 10 ML IV ×3 (09:26→23:32)
--- NOTE | 2024-11-15 09:53 | PN.CDI ---
CDI
- -
CDI:
Physician Documentation Request
Admit Date: 11/13/24 17:08
Dear Doctor Lalo,
Patient is being managed for sepsis. Progress notes state 'Most likely multifactorial infection from urine, pneumonia, ....'
H&P states 'Patient with bilateral nephrostomy tubes placed, 10/19/2024, a few weeks ago during hospitalization....'
Please clarify if a relationship exist between these conditions:
Yes, UTI is related to/associated with/due to nephrostomy tubes
No, UTI is not related to/associated with/due to nephrostomy tubes
Unable to determine
Use of terms such as suspected, likely, concern for, or probable (associated with a specific diagnosis that is being evaluated, monitored, or treated as if it exists) are acceptable and can be coded in the inpatient setting, when documented at the
time of discharge.
Thank you,
Billie Marquez RN, BSN
CDI Specialist
tiger text
Please use your independent medical judgment in providing your response.
--- NOTE | 2024-11-15 11:13 | W.PN.CD ---
Today's Communication / Plan
-
Stop dilt IV and for now will not add oral dilt or other med for AFIb, continue Eliquis
Cardiology will sign off
Impression / Plan
-
I/P: 89M with pulmonary embolism (on apixaban) and prostate cancer who presented to the emergency department with a chief complaint of worsening fatigue and associated exertional dyspnea.
Primary commercial credit reviewer: Dr. Leavitt
Sepsis, improving, on ATBs
- + blood culture and urine culture, possible pneumonia on CXR
- ID involved for complicated UTI
- nephrostomy placed 10/19/24, left nephrostomy exchanged 11/05/24
New PAF with RVR, precipitated by infection
- Back to sinus
- For now no rate control meds or rhythm control meds, lets see if AFib recurs
- Already on Eliquis (recently found pulm embolus)
- [id number]: score at least 3 (age 75 or more, Vascular disease)
ETHEL
- Slowly improving
- Bilateral nephrostomy tubes for recurrent/refractory hematuria due to radiation cystitis (10/19/2024)
Lower extremity edema
- Appears similar to yesterday, follow
Anemia, acute on chronic
Aortic stenosis, mild, peak/mean gradients 12/8 mmHg
History of PE (right lower lobe, 10/09/2024), on apixaban 5 mg twice daily
Prostate cancer, follows with Dr. Bustamante, metastatic
Nephrostomy tubes in place
Subjective: No CP or dyspnea. No palps
DATA:
Transthoracic echocardiogram, 11/03/2024:
1. Ejection fraction is 70-75% by visual assessment.
2. Right ventricular size and systolic function are within normal limits.
3. Mild aortic stenosis; peak/mean gradients 12/8 mmHg.
4. Mild to moderate tricuspid regurgitation. Estimated pulmonary artery pressure of 40 mmHg assuming a right atrial pressure of 3 mmHg.
Physical Exam
Vital Signs/Labs
Vital Signs
Temp Pulse Resp BP Pulse Ox
97.6 F 85 18 123/63 96
11/15/24 07:00 11/15/24 07:00 11/15/24 07:00 11/15/24 07:00 11/15/24 07:00
11/14/24 11/15/24 11/16/24
06:59 06:59 06:59
Actual Weight 81.873 kg
11/15/24 08:20
11/15/24 08:20
PT 25.8 Sec (11.4-14.6) H 11/13/24 13:52
INR 2.36 11/13/24 13:52
Physical Exam
Constitutional: No acute distress
Cardiovascular: Rhythm & rate is regular
Respiratory: Respiratory effort normal and Lungs clear to auscul.
GI: Soft and Distention absent
Neuro/Psych: AO x 3
Data Reviewed
-
Date of Service: November 15, 2024
[2024-11-15] MEDS: SANTYL OINTMENT 1 APPLIC TOPICAL (11:44)
--- NOTE | 2024-11-15 13:16 | CM ---
Chart reviewed and plan is to home with spouse and [facility].
Plan; Home with spouse and [facility].
--- NOTE | 2024-11-15 13:28 | W.PN.ID1 ---
Date of Service
Date of Service: November 15, 2024
Today's Communication
Continue current abx's.
Assessment / Plan
# Complicated UTI
# Enterobacter cloacae bacteremia, source
# hx bilateral perc nephrostomy placed 10/19/24, left nephrostomy exchanged 11/05/24
-Nephrostomy urine cx's: Enterobacter cloacae and Enterococcus faecalis
- Continue IV cefepime (d3). Enterobacter cloacae is amp-C phd internship, tends to confer intrinsic resistance to ceftriaxone and Zosyn.
- Continue po amoxicillin (d2) to cover Enterococcus faecalis
# Left pneumonia
# Cough
- urine legionella and strep pneumococcal Ag neg
- Sputum cx - unable to produce
- Continue cefepime and Doxycycline (d3)
# Unstageable sacral decubitus
- Hospitalist ordered MRI pelvis - pending.
# Leukocytosis
-improving
-trend wbc
# ETHEL
-improving
- Adjust abx dose as needed
- Follow renal function.
# New-onset Afib
Conditions present on admission:
PE on Eliquis
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
Radiation cystitis
Bilateral ureteral obstruction status post bilateral percutaneous nephrostomy placement October 19, 2024
Chief Complaint
-: Pneumonia, UTI and Bacteremia
Subjective / Review of Systems
+ cough, unable to bring up sputum
Vital Signs / Physical Exam
Vital Signs
Vital Signs
Temp Pulse Resp BP Pulse Ox
98.1 F 89 18 137/76 99
11/15/24 11:56 11/15/24 11:56 11/15/24 11:56 11/15/24 11:56 11/15/24 11:56
Physical Exam
Constitutional: No Acute Distress
Eyes: No Conjunctival Hemorrhage and Sclera Anicteric
Cardiovascular: Regular Rate and S1/S2
Pulmonary: Rales (Left base crackles)
Gastrointestinal: Soft, Non Tender and Non Distended
Genito-Urinary: Clear Urine (Bilateral nephrostomies); Negative CVA Tenderness
Extremities: Negative Edema
Wound: Other (Reviewed wound photos: gluteal cleft wound with eschar)
Neurological: AO x 3
Objective Data
Lab Data
Lab Results
11/15/24 08:20
11/15/24 08:20
PT 25.8 Sec (11.4-14.6) H 11/13/24 13:52
INR 2.36 11/13/24 13:52
Estimated Creat Clear 41 ml/min 11/15/24 08:20
Lactic Acid Cancelled 11/14/24 06:23
Total Bilirubin 0.6 mg/dl (0.2-1.3) 11/15/24 08:20
AST 60 U/L (17-59) H 11/15/24 08:20
ALT 85 U/L (0-50) H 11/15/24 08:20
Alkaline Phosphatase 127 U/L (38-126) H 11/15/24 08:20
Most recent labs reviewed.
Micro Results:
11/13/24 13:52 Urine Culture - Final
Urine Enterobacter cloacae
Enterococcus faecalis
11/13/24 14:03 Urine Culture - Final
Urine Enterobacter cloacae
Enterococcus faecalis
11/13/24 14:03 Blood Culture - Preliminary
Blood/Venous Enterobacter cloacae complex
Gram Stain - Preliminary
11/13/24 14:03 Legionella Urinary Antigen - Final
Urine Negative for Legionella pneumophila Serogroup 1 antigen.
A negative result does not rule out the possiblity of
Legionella infection due to other serogroups or species of
Legionella. Clinical correlation is recommended.
Streptococcus pneumoniae Antigen (M - Final
Negative for Streptococcus pneumoniae antigen.
A negative result does not exclude infection with
Streptococcus pneumoniae. Clinical correlation is
recommended.
11/13/24 13:54 Blood Culture - Preliminary
Blood/Venous No Growth in 24 hours- Final report to follow
11/13/24 13:54 Influenza Types A & B (VALERIE) - Final
Nasal Swab Negative for Influenza A & B, NAAT
Negative results must be combined with clinical observations
and patient history.
Nucleic Acid Amplification test (NAAT)performed on the
[employer] platform.
11/13/24 CXR: New opacity of the mid left lung field concerning for pneumonia.
--- NOTE | 2024-11-15 17:38 | W.PN.UPDATE ---
Update Note
Progress Note Update
MRI pelvis ordered to evaluate osteomyelitis from sacral decubitus ulcers demonstrated no osteomyelitis but revealed diffuse metastatic dx.
I went to discuss results with pt regarding MRI and correlating that CXR could also be indicative of metastatic dx. Explained a more sensitive imaging modality would be needed to characterize the lung mass but the MRI has confirmed bony spread. Pt
reports worsening respiratory status with HERMOSILLO even to restroom, concerned about returning home in this state. His main focus is on returning home with better performance status. Offered to call with updates. Pt stated he would call her to
update. Answered all questions to apparent satisfaction. Consulted oncology; most likely in need of palliative RT/interventions. Repeat CXR. Consider pulm consult if postobstructive pneumonia.
[2024-11-16] VITALS (8 sets, daily range): BP systolic 101–148; BP diastolic 67–90
[2024-11-16] MEDS: NSS 1000 IV (04:10)
[2024-11-16] MEDS: MAXIPIME 1000 MG IV ×2 (07:50→17:16)
[2024-11-16] MEDS: STERILE WATER FOR INJECTION 10 ML IV ×2 (07:50→17:16)
[2024-11-16] MEDS: VIBRAMYCIN 100 MG PO ×2 (07:52→19:46)
[2024-11-16] MEDS: TIMOPTIC 0.5% OPHTHALMIC SOLUTION 1 DROP RIGHT EYE ×2 (07:52→19:46)
[2024-11-16] MEDS: ELIQUIS 5 MG PO ×2 (07:52→19:46)
[2024-11-16] MEDS: ALPHAGAN 0.2% EYE DROPS 1 DROP RIGHT EYE ×2 (07:52→19:46)
[2024-11-16] MEDS: AMOXIL 500 MG PO ×2 (07:53→17:15)
[2024-11-16] MEDS: SANTYL OINTMENT 1 APPLIC TOPICAL (07:59)
--- NOTE | 2024-11-16 08:57 | W.PN.HOSP.TC ---
Today's Communication/Plan
-
Plan reviewed with attending
CT chest
Pulm consult
Heme/onc consult
PRn duonebs
Assessment / Plan
Assessment / Plan
89yoM PMH PE now on eliquis, prostate cx s/p prostatectomy and RT, nephrostomy tubes placed 10/19 and irrigated 11/06 presenting with fatigue, SOB, cough.
AFVSS except found to be in new afib. Cardiology initially started on metoprolol and transitioned to cardizem drip. Hgb 7.2 down from 8.9 yesterday after fluid resuscitation. Leukocytosis improving on abx 11.4 down from 17. Electrolytes WNL. BUN/Cr
improved from yesterday 85/2.2 respectively to 68/1.6. UA +leukoesterase, bacteria, WBC. BC + Enterobacter. hx Enterobacter sensitive to cefepime 09/2024. Wound care found sacral, deep ulcers determined to be unstageable.
Pt reverted out of afib off diltiazem and metoprolol. AFVSS. Leukocytosis improved WBC 12. ETHEL improving bun 48, cr 1.4. 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
etiology. F/u outpt. Ferritin elevated as acute phase reactant. Retic 3% appropriately producing RBC. Hgb stable
Most likely multifactorial infection from urine, pneumonia, and possibly ulcers. ID following. CXR: progressive pneumonia LLL. MRI pelvis: diffuse metastatic dx, no osteomyelitis
Leukocytosis improving. AFVSS. Consulted heme/oncology. Continue abx. Given that mass in lung is most likely a metastasis, concern with postobstructive pneumonia in LLL with worsening pneumonia and wheezes on exam; pulm consulted. Already on lupron,
castrate resistant. CT chest.
Consider GOC.
#pneumonia
#wheeze/SOB
- CXR mass. CT chest w/o contrast
-PRN duonebs
#leukocytosis
#gram negative bacteremia
#sepsis
#lactic acidosis
#UTI undetermined if caused by nephrostomy tubes, likely culprit
- ABX: cefepime and doxycycline. renally adjusted per pharmacy. Id added amoxicillin
- ID following
- IVF
- lactic acid 3.3 down to 1.7 improved
- Encourage IS
- PT/OT
#decubitus sacral ulcers
- MR pelvis: no osteomyelitis
- On abx already for pneumonia and bacteremia
- Wound care
#paroxysmal afib
- On eliquis at baseline, continue
- Diltiazem drip 5 off. NS
#normocytic anemia
- Iron studies, B12, folate came bakc normal
- Anemia of chronic dx
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
- IVF
- improving
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
- Outpt elevated PSA. Concern for lung and bone mets.
- Heme/onc consult
Chronic
- irradiation cystitis
Anticipated Discharge: 24 - 48 hours
Subjective/Interval History
-
Date of Service: November 16, 2024
Pt reports controlled pain. He continues to have SOB and cough with no changes in breathing. He continues to feel fatigued and weak.
Objective Data
-
Vital Signs:
Vital Signs
Temp Pulse Resp BP Pulse Ox
98.1 F 101 18 125/71 95
11/16/24 07:00 11/16/24 07:00 11/16/24 07:00 11/16/24 07:00 11/16/24 07:00
I&O
11/15/24 11/16/24 11/17/24
06:59 06:59 06:59
Intake Total 1854 / 1854 480 / 480
Output Total 635 / 635 1155 / 1155
Balance 1219 / 1219 -675 / -675
Physical Exam
-
General: No Apparent Distress, Comfortable and Appears Chronically Ill
HEENT: Normocephalic, Atraumatic and Moist Mucous Membranes
Respiratory: Wheezes and Non Labored Respirations
Cardiac: Regular Rhythm and S1/S2
GI: Soft, Nontender and Nondistended
Genito-urinary: Nephrostomy Tubes (nonbloody outpt)
Musculoskeletal: Other (very mild, nonpitting LE edema)
Skin: Warm and Dry
Neuro: AO x 3 and Nonfocal/Grossly Intact
Psych: Calm
--- NOTE | 2024-11-16 10:23 | CON.ONC ---
Consultation
-
Date Consultation Requested: 11/16/24
Date Consultation Performed: 11/16/24
Requesting Provider: Dr. May
Performing Provider: Dr. Tinoco; Dr. Curtis
Reason for Consultation: Metastatic cancer
Impression
Impression
#Castrate-resistant prostate CA
Evidence of bony metastases on CT chest 10/09 and MRI pelvis 11/15
Elevated PSA on outpatient labs
#Multifactorial anemia
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
Labs: Hgb 7.7, low but stable; RDW 16.7; iron 35, TIBC 200, ferritin 661, pattern suggestive of AOCD
#Sepsis 2/2 UTI
During hospital stay, patient has been tachypneic, tachycardic with abnormal UA and leukocytosis with left shift
WBCs 12.0, 17.0 on 11/13
Plan
Plan
#Castrate-resistant prostate cancer
Recommend outpatient heme-onc follow-up to discuss adding ARSI
#Multifactorial anemia
Recommend decreasing Eliquis dose to 2.5 mg twice daily given renal insufficiency and advanced age
Recommend lower extremity ultrasound given recent history of PE and recommendation to decrease Eliquis dose
Do not recommend iron supplementation at this time given suspected sepsis
Recommend outpatient heme-onc follow-up for consideration of LIZZIE
#Sepsis 2/2 UTI
Consider bilateral nephrostomy tube exchange after antibiotics given suspected source of sepsis
Monitor CBC, temperature curve, clinical status
Patient History
History of Present Illness
Patient is an 89-year-old male with past medical history of pulmonary embolism (10/09/2024) on Eliquis, prostate cancer (2004) s/p prostatectomy and radiation, and radiation cystitis with urinary retention, intermittent hematuria, and bilateral
hydronephrosis necessitating PCN placement (10/20/2024) who presented to the [facility] ED with progressive fatigue and dyspnea. Patient is currently being treated for sepsis 2/2 UTI given leukocytosis, abnormal urinalysis, tachycardia, and tachypnea.
Patient states he has had weight loss, fatigue, and dyspnea since July 2024, which has been worsening recently. Patient states he gets 'shots for his PSA', known by outside documentation to be androgen deprivation therapy (ADT). Unfortunately,
patient was recently found to have bony metastases on CT chest (10/09/2024) and an elevated PSA, suggesting presence of castrate-resistant prostate cancer. Based on lab records, patient has had worsening anemia since late September when he was started
on Eliquis for hematuria. Patient recently followed with Dr. Bustamante in the outpatient setting. Endorses lightheadedness, fatigue, and shortness of breath. Denies fever, chills, pain, hematuria, hematochezia, hematemesis, hemoptysis.
Past-Medical/Surgical History
Prostate cancer s/p prostatectomy and radiation (2004)
Pulmonary embolism (10/09/2024)
Radiation cystitis complicated by urinary retention, intermittent hematuria, and bilateral hydronephrosis necessitating PCN placement (10/20/2024)
Patient Medication
�Medication �Instructions �Recorded �Confirmed �Last Taken �Type
apixaban 5 mg tablet (Eliquis) 5 mg PO BID Blood Clot 10/25/24 11/13/24 11/13/24 Rx
Prevention/Tx #60 tabs
brimonidine 0.2 %-timolol 0.5 % 1 drp RIGHT EYE BID Eye Condition 11/13/24 11/13/24 11/13/24 History
eye drops
therapeutic multivitamin 1 tab PO DAILY Supplement 11/13/24 11/13/24 11/13/24 History
tramadol 50 mg tablet 50 mg PO Q6HPRN PRN severe pain 11/13/24 11/13/24 Unknown History
Active Medications
Generic Name Dose Route Start Last Admin
Trade Name Freq PRN Reason Stop Dose Admin
Acetaminophen 650 mg 11/13/24 18:23
Acetaminophen 325 Mg Tablet PO 12/11/24 18:22
Q4HPRN PRN
mild pain/RAMOS/temp> 100.4F
Amoxicillin 500 mg 11/14/24 16:00 11/16/24 07:53
Amoxicillin 500 Mg Capsule PO 500 mg
Q8 ZOIE Administration
Apixaban 5 mg 11/13/24 20:00 11/16/24 07:52
Apixaban (Eliquis) 5 Mg Tablet PO 12/11/24 19:59 5 mg
BID ZOIE Administration
Brimonidine Tartrate 1 drop 11/13/24 20:00 11/16/24 07:52
Brimonidine 0.2% (Ophthalmic Solution) Bottle RIGHT EYE 12/11/24 19:59 1 drop
BID ZOIE Administration
Cefepime HCl 1,000 mg 11/14/24 16:00 11/16/24 07:50
Cefepime Hcl 1,000 Mg/11.3 Ml Vial IV 1,000 mg
Q8 ZOIE Administration
Collagenase 0 applic 11/15/24 08:00 11/16/24 07:59
Collagenase Ointment 2.5 Gram Jar TOPICAL 12/13/24 07:59 1 applic
DAILY ZOIE Administration
Doxycycline Hyclate 100 mg 11/13/24 20:00 11/16/24 07:52
Doxycycline 100 Mg Capsule PO 100 mg
Q12 ZOIE Administration
Sodium Chloride 1,000 mls @ 80 mls/hr 11/15/24 03:45 11/16/24 04:10
Nss IV 1,000 mls
.[id number] ZOIE Administration
Sodium Chloride 0 flush 11/14/24 08:00
Sodium Chloride 0.9% (Flush) Syringe IV 12/12/24 07:59
PER PROTOCOL ZOIE
Sterile Water 10 ml 11/14/24 16:00 11/16/24 07:50
Sterile Water For Injection 10 Ml Vial IV 12/12/24 15:59 10 ml
Q8H ZOIE Administration
Timolol Maleate 1 drop 11/13/24 20:00 11/16/24 07:52
Timolol 0.5% (Ophthalmic Solution) Bottle RIGHT EYE 12/11/24 19:59 1 drop
BID ZOIE Administration
Tramadol HCl 50 mg 11/13/24 18:23
Tramadol Hcl 50 Mg Tablet PO 12/11/24 18:22
Q6HPRN PRN
severe pain
Review of Systems
-
History Source: Patient
Constitutional: Reports Weight Loss, Fatigue and Weakness; Denies Fever or Chills
Respiratory: Reports Trouble Breathing; Denies Hemoptysis
Cardiac: Denies Chest Pain
GI: Denies Bloody Stools or Hemetemesis
: Denies Bleeding
Physical Exam
-
General: No Apparent Distress
HEENT: Negative Jaundice
Cardiology: S1 and S2
Pulmonary: Clear
GI: Soft and Other (Nontender); Negative Distended
Musculoskeletal: No Cyanosis and No Edema
Extremities: Pulses Present; Negative Phlebitic Signs
Skin: Warm and Dry
Psych: Calm
Labs
Lab Results
WBC 12.0 10^3/uL (4.8-10.8) H 11/15/24 08:20
RBC 2.81 10^6/uL (4.70-6.10) L 11/15/24 08:20
Hgb 7.7 g/dL (13.0-18.0) L 11/15/24 08:20
Hct 25.2 % (39.0-52.0) L 11/15/24 08:20
MCV 89.7 fL (80.0-94.0) 11/15/24 08:20
MCH 27.4 pg (27.0-31.0) 11/15/24 08:20
MCHC 30.6 g/dL (33.0-37.0) L 11/15/24 08:20
RDW 16.7 % (11.5-14.5) H 11/15/24 08:20
Plt Count 470 10^3/uL (130-400) H 11/15/24 08:20
MPV 11.1 fL (7.4-10.4) H 11/15/24 08:20
Abs Immat Gran (auto) 0.6 10^3/uL (0-0.05) H 11/15/24 08:20
Absolute Neuts (auto) 9.0 10^3/uL (1.4-6.5) H 11/15/24 08:20
Absolute Lymphs (auto) 1.8 10^3/uL (1.2-3.4) 11/15/24 08:20
Absolute Monos (auto) 0.5 10^3/uL (0.1-0.6) 11/15/24 08:20
Absolute Eos (auto) 0.1 10^3/uL (0-0.7) 11/15/24 08:20
Absolute Basos (auto) 0.0 10^3/uL (0-0.2) 11/15/24 08:20
Immature Gran % 4.8 % (0-0.5) H 11/15/24 08:20
Neutrophils % 75.5 % (42.2-75.2) H 11/15/24 08:20
Lymphocytes % 15.1 % (20.5-51.1) L 11/15/24 08:20
Monocytes % 3.8 % (1.7-9.3) 11/15/24 08:20
Eosinophils % 0.6 % (0-6) 11/15/24 08:20
Basophils % 0.2 % (0-2) 11/15/24 08:20
Creatinine 1.4 mg/dL (0.7-1.3) H 11/15/24 08:20
Vital Signs
Vital Signs
Temp Pulse Resp BP Pulse Ox
98.1 F 101 18 125/71 95
11/16/24 07:00 11/16/24 07:00 11/16/24 07:00 11/16/24 07:00 11/16/24 07:00
--- NOTE | 2024-11-16 12:14 | CON.PUL ---
Consultation
Consultation Request
Date/Time Consultation Requested: 11/16/2024
Date/Time Consultation Performed: 11/16/2024
Requesting Provider: Dr. Reed
Performing Provider: Dr. Dedrick Dempsey
Reason for Consultation: Lung mass
Medical History
-
History of Present Illness:
89-year-old man with past medical history significant for pulmonary embolism who presented to the emergency room complaining of fatigue, dry cough, exertional dyspnea and poor appetite for the last 3 to 4 days. Has history of bilateral nephrostomy
tubes placed on 10/19/2024 where he developed hematuria. He was sent to the emergency room 11/14/2023 for evaluation by visiting nurse.
Apparently he was extremely weak.
Patient was found to have a urinary tract infection. Currently on antibiotics.
Initial chest x-ray showed new opacity in the left lung field suggestive of pneumonia.
He was placed on antibiotics.
Patient has sacral decubitus ulcers as well.
He was also discovered to have new onset atrial fibrillation.
Past Medical History
Past Medical History: Other (See assessment and plan)
Social History
Tobacco: Former Smoker
Alcohol: Occasional
Drug: None
Personal:
Living: With Family
Employment: Retired
Family History
Family History: Reviewed & Not Pertinent
Allergies / Home Medications
Allergies
Allergy/AdvReac Type Severity Reaction Status Date / Time
No Known Allergies Allergy Verified 11/13/24 13:27
Home Medications
�Medication �Instructions �Recorded �Confirmed �Last Taken �Type
apixaban 5 mg tablet (Eliquis) 5 mg PO BID Blood Clot 10/25/24 11/13/24 11/13/24 Rx
Prevention/Tx #60 tabs
brimonidine 0.2 %-timolol 0.5 % 1 drp RIGHT EYE BID Eye Condition 11/13/24 11/13/24 11/13/24 History
eye drops
therapeutic multivitamin 1 tab PO DAILY Supplement 11/13/24 11/13/24 11/13/24 History
tramadol 50 mg tablet 50 mg PO Q6HPRN PRN severe pain 11/13/24 11/13/24 Unknown History
Review of Systems
-
History Source: Patient
All other systems: Negative unless noted
Vitals / Labs / Diagnostic Testing
Vital Signs
Temp Pulse Resp BP Pulse Ox
97.6 F 85 18 139/71 97
11/16/24 11:00 11/16/24 11:00 11/16/24 11:00 11/16/24 11:00 11/16/24 11:00
Lab Data
11/15/24 08:20
11/15/24 08:20
Microbiology
11/13/24 14:03 Blood/Venous Blood Culture - Preliminary
Enterobacter cloacae
11/13/24 14:03 Blood/Venous Gram Stain - Preliminary
11/13/24 13:54 Blood/Venous Blood Culture - Preliminary
No Growth in 48 hours- Final report to follow
11/13/24 13:52 Urine Urine Culture - Final
Enterobacter cloacae
Enterococcus faecalis
11/13/24 14:03 Urine Urine Culture - Final
Enterobacter cloacae
Enterococcus faecalis
11/13/24 14:03 Urine Legionella Urinary Antigen - Final
Negative for Legionella pneumophila Serogroup 1 antigen.
A negative result does not rule out the possiblity of
Legionella infection due to other serogroups or species of
Legionella. Clinical correlation is recommended.
11/13/24 14:03 Urine Streptococcus pneumoniae Antigen (M - Final
Negative for Streptococcus pneumoniae antigen.
A negative result does not exclude infection with
Streptococcus pneumoniae. Clinical correlation is
recommended.
11/13/24 13:54 Nasal Swab Influenza Types A & B (VALERIE) - Final
Negative for Influenza A & B, NAAT
Negative results must be combined with clinical observations
and patient history.
Nucleic Acid Amplification test (NAAT)performed on the
[employer] platform.
Diagnostic Testing:
Physical Exam
-
HEENT: Normocephalic
Respiratory: Non-Labored Respirations
GI: Soft and Non Distended
Neurology: Awake
Skin: Warm
General: Comfortable
Assessment
-
89-year-old man with widely metastatic prostate cancer, bilateral percutaneous nephrostomies, sacral decubitus ulcers, new onset atrial fibrillation admitted with sepsis due to UTI. Also chest x-ray showed new left mid field abnormality. Initially
treated as pneumonia. Now concerning for metastatic pulmonary disease from prostate cancer.
We were consulted on 11/16/2024 for evaluation
Left lower lobe infiltrate on x-ray.
Chest x-ray 11/13/2024: New left mid field opacity suggesting pneumonia.
No oxygen requirement
Legionella/pneumococcal antigen
-
Complicated UTI: Enterobacter cloacae bacteremia
New onset atrial fibrillation
Widely metastatic prostate cancer-castrate resistant
Conditions present prior admission:
Chronic kidney disease
Anemia of chronic disease
Sacral decubital ulcers
Bilateral nephrostomy tubes since October 2024
History of pulmonary embolism September 2024-on anticoagulation
Former smoker
Prostate cancer s/p radiation and prostatectomy
Evidence of bony metastatic disease on CT chest 09/2023-MRI of the pelvis 11/2024.
Radiation cystitis
DNR status
-
Assessment and plan:
From the pulmonary perspective left midlung field abnormality suggest pneumonia, cannot rule out metastatic disease.
At this point in this patient with known prostate cancer with widely metastatic disease unlikely to ion exchange operator from the cancer perspective whether he has metastatic lung disease or not.
-
With his poor functional capacity/urosepsis etc. would not pursue further evaluation.
Alternatively if this does not clear can consider CT of the chest-as a former smoker a different primary is a possibility. Makes it less likely as in September 2024 there was no lung nodule in that area. He did have mediastinal lymph nodes and tiny
right middle lobe lung nodules.
-
Continue antibiotics as you are
Secretion clearance intervention with incentive spirometry and Acapella device if the patient has difficulty clearing secretions
-
His shortness of breath is multifactorial including anemia, deconditioning, possible pneumonia.
-
Atrial fibrillation: Improved rate
On anticoagulation for history of pulmonary embolism.
-
I would not recommend additional intervention from the pulmonary perspective.
Pulmonary will follow peripherally
-
Continue to follow-up with oncology after discharge.

Data reviewed:
CT chest 09/2024: Reviewed
Subsegmental pulmonary emboli in the right lower lobe.
Lytic lesions on the ribs.
Lytic lesions on T5.
Prominent right hilar and subcarinal lymph nodes
Scattered pulmonary nodules up to 4 mm on the right middle lobe.
-.
Echocardiogram 11/03/2024:
Ejection fraction 70 to 75%.
Right ventricular size normal.
Mild .
Mild to moderate TR.
--- NOTE | 2024-11-16 14:21 | CM ---
Chart reviewed and physical therapy are recommending skilled placement options reviewed with patient and he has selected [facility], referral sent to [facility].
Plan; referral sent to [facility], patient will need Auth for skilled placement.
--- NOTE | 2024-11-16 15:16 | W.PN.ID1 ---
Date of Service
Date of Service: November 16, 2024
Today's Communication
Continue antibiotics.
Assessment / Plan
# Complicated UTI
# Enterobacter cloacae bacteremia, source
# hx bilateral perc nephrostomy placed 10/19/24, left nephrostomy exchanged 11/05/24
-Nephrostomy urine cx's: Enterobacter cloacae and Enterococcus faecalis
- Continue IV cefepime (d#4). Enterobacter cloacae is amp-C cattle producers, tends to confer intrinsic resistance to ceftriaxone and Zosyn.
- Continue po amoxicillin (d#3) to cover Enterococcus faecalis
# Left pneumonia
# Cough
- urine legionella and strep pneumococcal Ag neg
- Sputum cx - unable to produce
- Continue cefepime and Doxycycline (d#4)
# Unstageable sacral decubitus
- No osteomyelitis on MRI
# Leukocytosis
-improving
-trend wbc
# ETHEL
-improving
- Adjust abx dose as needed
- Follow renal function.
# New-onset Afib
Conditions present on admission:
PE on Eliquis
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
Radiation cystitis
Bilateral ureteral obstruction status post bilateral percutaneous nephrostomy placement October 19, 2024
Chief Complaint
-: Pneumonia, UTI and Bacteremia
Subjective / Review of Systems
Review of Systems: No Fever, No Chills, No Cough, No Sputum Production and No Abdominal Pain
Vital Signs / Physical Exam
Vital Signs
Vital Signs
Temp Pulse Resp BP Pulse Ox
97.6 F 85 18 139/71 97
11/16/24 11:00 11/16/24 11:00 11/16/24 11:00 11/16/24 11:00 11/16/24 11:00
Physical Exam
Constitutional: No Acute Distress, Chronically Ill and Non-toxic
Eyes: No Conjunctival Hemorrhage and Sclera Anicteric
Cardiovascular: Regular Rate and S1/S2
Pulmonary: Rales (Left base crackles)
Gastrointestinal: Soft, Non Tender and Non Distended
Genito-Urinary: Clear Urine (Bilateral PCN's in place); Negative CVA Tenderness
Extremities: Negative Edema
Wound: Other (Reviewed wound photos: gluteal cleft wound with eschar)
Neurological: AO x 3
Objective Data
Lab Data
Lab Results
11/15/24 08:20
11/15/24 08:20
PT 25.8 Sec (11.4-14.6) H 11/13/24 13:52
INR 2.36 11/13/24 13:52
Estimated Creat Clear 41 ml/min 11/15/24 08:20
Lactic Acid Cancelled 11/14/24 06:23
Total Bilirubin 0.6 mg/dl (0.2-1.3) 11/15/24 08:20
AST 60 U/L (17-59) H 11/15/24 08:20
ALT 85 U/L (0-50) H 11/15/24 08:20
Alkaline Phosphatase 127 U/L (38-126) H 11/15/24 08:20
Most recent labs reviewed.
Micro Results:
11/13/24 13:54 Blood Culture - Preliminary
Blood/Venous No Growth in 72 hours- Final report to follow
11/13/24 14:03 Blood Culture - Preliminary
Blood/Venous Enterobacter cloacae
Gram Stain - Preliminary
11/13/24 13:52 Urine Culture - Final
Urine Enterobacter cloacae
Enterococcus faecalis
11/13/24 14:03 Urine Culture - Final
Urine Enterobacter cloacae
Enterococcus faecalis
11/13/24 14:03 Legionella Urinary Antigen - Final
Urine Negative for Legionella pneumophila Serogroup 1 antigen.
A negative result does not rule out the possiblity of
Legionella infection due to other serogroups or species of
Legionella. Clinical correlation is recommended.
Streptococcus pneumoniae Antigen (M - Final
Negative for Streptococcus pneumoniae antigen.
A negative result does not exclude infection with
Streptococcus pneumoniae. Clinical correlation is
recommended.
11/13/24 13:54 Influenza Types A & B (VALERIE) - Final
Nasal Swab Negative for Influenza A & B, NAAT
Negative results must be combined with clinical observations
and patient history.
Nucleic Acid Amplification test (NAAT)performed on the
[employer] platform.
Imaging:
11/15/2024 MRI pelvis: No MRI evidence for acute osteomyelitis. Osseous metastatic disease with numerous osseous metastatic foci involving the lumbar spine, sacrum, pelvis, and bilateral proximal femurs. Largest lesions in the right superior pubic
ramus/pubic body and in the right iliac bone. Marked urinary bladder wall thickening may be infectious/inflammatory or neoplastic.
11/13/24 CXR: New opacity of the mid left lung field concerning for pneumonia.
[2024-11-17] MEDS: AMOXIL 500 MG PO ×2 (00:28→07:35)
[2024-11-17] MEDS: MAXIPIME 1000 MG IV ×2 (00:29→07:34)
[2024-11-17] MEDS: STERILE WATER FOR INJECTION 10 ML IV ×2 (00:29→07:35)
[2024-11-17 04:04] VITALS: BP 126/72
[2024-11-17] MEDS: ELIQUIS 5 MG PO (07:34)
[2024-11-17] MEDS: VIBRAMYCIN 100 MG PO (07:35)
[2024-11-17] MEDS: TIMOPTIC 0.5% OPHTHALMIC SOLUTION 1 DROP RIGHT EYE ×2 (07:41→20:50)
[2024-11-17] MEDS: ALPHAGAN 0.2% EYE DROPS 1 DROP RIGHT EYE ×2 (07:42→20:50)
[2024-11-17] MEDS: SANTYL OINTMENT TOPICAL (07:42)
[2024-11-17 08:00] VITALS: BP 140/76
[2024-11-17 09:00] LABS: Hematocrit 24.0 % (39.0-52.0); Hemoglobin 7.3 g/dL (13.0-18.0); Mean Corp Hgb Conc. 30.4 g/dL (33.0-37.0); Mean Corpuscular Volume 89.9 fL (80.0-94.0); Platelet Count 363 10^3/uL (130-400); Red Cell Dist. Width 17.5 % (11.5-14.5)
[2024-11-17 09:36] LABS: Blood Urea Nitrogen 31 mg/dl (9-20); Calcium 8.5 mg/dl (8.4-10.2); Carbon Dioxide 23 mmol/L (22-30); Chloride 119 mmol/L (98-107); Estimated Creatinine Clearance 48 ml/min; Glucose 94 mg/dl (70-99); Potassium 4.2 mmol/L (3.5-5.1); Sodium 147 mmol/L (135-145); eGFR 58.53
--- NOTE | 2024-11-17 10:13 | W.PN.HOSP.TC ---
Today's Communication/Plan
-
Plan reviewed with attending
Dispo planning, GOC.
Continued abx
Assessment / Plan
Assessment / Plan
89yoM PMH PE now on eliquis, prostate cx s/p prostatectomy and RT, nephrostomy tubes placed 10/19 and irrigated 11/06 presenting with fatigue, SOB, cough.
AFVSS except found to be in new afib. Cardiology initially started on metoprolol and transitioned to cardizem drip. Hgb 7.2 down from 8.9 yesterday after fluid resuscitation. Leukocytosis improving on abx 11.4 down from 17. Electrolytes WNL. BUN/Cr
improved from yesterday 85/2.2 respectively to 68/1.6. UA +leukoesterase, bacteria, WBC. BC + Enterobacter. hx Enterobacter sensitive to cefepime 09/2024. Wound care found sacral, deep ulcers determined to be unstageable.
Pt reverted out of afib off diltiazem and metoprolol. AFVSS. Leukocytosis improved WBC 12. ETHEL improving bun 48, cr 1.4. 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
etiology. F/u outpt. Ferritin elevated as acute phase reactant. Retic 3% appropriately producing RBC. Hgb stable
Most likely multifactorial infection from urine, pneumonia, and possibly ulcers. ID following. CXR: progressive pneumonia LLL. MRI pelvis: diffuse metastatic dx, no osteomyelitis
Leukocytosis improving. AFVSS. Consulted heme/oncology. Continue abx. Given that mass in lung is most likely a metastasis, concern with postobstructive pneumonia in LLL with worsening pneumonia and wheezes on exam; pulm consulted. Already on lupron,
castrate resistant. CT chest.
Today, pt continues on abx AFVSS. Pulm rec no interventions. Heme/onc rec outpt f/u, reduce eliquis to 2.5mg. Nephrostomy tubes replaced. Plan to go to [facility]. Can consider going tomorrow. GOC continued.
#pneumonia
#wheeze/SOB
- CXR mass. CT chest w/o contrast
-PRN duonebs
#leukocytosis
#gram negative bacteremia
#sepsis
#lactic acidosis
#UTI undetermined if caused by nephrostomy tubes, likely culprit
- ABX: cefepime and doxycycline. renally adjusted per pharmacy. Id added amoxicillin
- ID following
- IVF
- lactic acid 3.3 down to 1.7 improved
- Encourage IS
- PT/OT
#decubitus sacral ulcers
- MR pelvis: no osteomyelitis
- On abx already for pneumonia and bacteremia
- Wound care
#paroxysmal afib
- On eliquis at baseline, continue
- Diltiazem drip 5 off. NS
#normocytic anemia
- Iron studies, B12, folate came bakc normal
- Anemia of chronic dx
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
- IVF
- improving
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
- Outpt elevated PSA. Concern for lung and bone mets.
- Heme/onc consult
Chronic
- irradiation cystitis
Anticipated Discharge: Within 24 hours
Subjective/Interval History
-
Date of Service: November 17, 2024
Pt reports continued cough with comparable breathing from yesterday.
His priority is to 'get home and walk.' We discussed possibility of hospice consult and he declined. I described his metastases found in his ribs. Denies pain correlated to any bony mets seen on scans.
Objective Data
-
Labs:
Laboratory Results
11/17/24
08:21
WBC 7.9
Hgb 7.3 L
Hct 24.0 L
Plt Count 363 D
Sodium 147 H
Potassium 4.2
Chloride 119 H
Carbon Dioxide 23
BUN 31 H
Creatinine 1.2
Glucose 94
Calcium 8.5
Vital Signs:
Vital Signs
Temp Pulse Resp BP Pulse Ox
97.5 F 88 17 140/76 96
11/17/24 08:00 11/17/24 08:00 11/17/24 08:00 11/17/24 08:00 11/17/24 08:00
I&O
11/16/24 11/17/24 11/18/24
06:59 06:59 06:59
Intake Total 480 / 480 240 / 240
Output Total 1155 / 1155 1675 / 1675
Balance -675 / -675 -1435 / -1435
Physical Exam
-
General: No Apparent Distress, Comfortable and Appears Chronically Ill
HEENT: Normocephalic, Moist Mucous Membranes and [place] Conjunctivae
Respiratory: Clear to Auscultation and Non Labored Respirations
Cardiac: Regular Rhythm and S1/S2
GI: Soft, Nontender and Nondistended
Musculoskeletal: Other (trace, nonpitting edema)
Skin: Warm and Dry
Psych: Calm
--- NOTE | 2024-11-17 10:43 | CM ---
Addendum entered by Federica Rios 11/17/24 14:09:
Pending auth #[id number] clinicals faxed to . Pending response. Physician aware.
Addendum entered by Federica Rios 11/17/24 13:48:
[facility] would be able to accept Wednesday pending auth if physician feels patient medically appropriate and patient in agreement. CM called to start auth with Home and [facility].
Original Note:
Patient seen at bedside on . Patient accepted for [facility] pending auth. Patient physician aware, CM will start auth with [facility] and await response. CM will continue to follow for discharge planning needs
Plan; transfer to [facility] pending bed availability and auth from insurance.
--- NOTE | 2024-11-17 11:06 | W.PN.ONC2 ---
Documented by User: Eleno Tinoco MD, Resident 11/17/24 15:40
Today's Communication / Plan
-
Decreased Eliquis dose to 2.5 mg twice daily
Outpatient heme-onc follow-up for possible ARSI for castrate-resistance prostate cancer
Outpatient heme-onc follow-up for possible LIZZIE for anemia
Impression
Impression
#Castrate-resistant prostate CA
Evidence of bony metastases on CT chest 10/09 and MRI pelvis 11/15
Elevated PSA on outpatient labs
#Multifactorial anemia
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
Labs: Hgb 7.3, mildly decreased from yesterday; RDW 17.5; iron 35, TIBC 200, ferritin 661, pattern suggestive of AOCD
Lower extremity u/s (11/16): No DVT
#Sepsis 2/2 UTI
During hospital stay, patient has been tachypneic, tachycardic with abnormal UA, leukocytosis with left shift, and positive blood and urine cultures
WBCs 7.9, leukocytosis resolved from 17.9 on 11/13
Bilateral PCNs exchanged 11/16
Plan
Plan
#Castrate-resistant prostate cancer
Recommend outpatient heme-onc follow-up to discuss adding ARSI
#Multifactorial anemia
Recommend decreasing Eliquis dose to 2.5 mg twice daily given renal insufficiency, advanced age, suspected blood loss, and no LE DVT
Do not recommend iron supplementation at this time given suspected sepsis
Recommend outpatient heme-onc follow-up for consideration of LIZZIE
#Sepsis 2/2 UTI
Monitor CBC, temperature curve, clinical status
Subjective/Objective
Chief Complaint
Shortness of breath, fatigue
Subjective
Patient is seen at the bedside on hospital day #5. No new complaints. Feels same as yesterday. Patient underwent b/l PCN exchange yesterday. Continues to have fatigue and shortness of breath when OOB. Denies fever, chills, pain of any kind.
Vital Signs:
Vital Signs
Temp Pulse Resp BP Pulse Ox
97.5 F 88 17 140/76 96
11/17/24 08:00 11/17/24 08:00 11/17/24 08:00 11/17/24 08:00 11/17/24 08:00
Lab Results:
Laboratory Data
WBC 7.9 10^3/uL (4.8-10.8) 11/17/24 08:21
Hgb 7.3 g/dL (13.0-18.0) L 11/17/24 08:21
Plt Count 363 10^3/uL (130-400) D 11/17/24 08:21
PT 25.8 Sec (11.4-14.6) H 11/13/24 13:52
INR 2.36 11/13/24 13:52
eGFR 58.53 11/17/24 08:21
Physical Exam
HEENT: No Jaundice
Cardiology: S1 and S2
Pulmonary: Clear
Extremities: Pulses Present and Edema (Trace); No Phlebitic Signs
Neuro: Non Focal
Review of Systems
Review of Systems
Constitutional: Reports Fatigue (When OOB); Denies Fever
Respiratory: Denies Dyspnea
Cardiovascular: Denies Chest Pain
Genitourinary: Reports Hematuria (Per nursing, urine clear yellow in PCN bags)
Neurological: Denies Headache
Hem/Lymphatic: Reports Easy Bruising
Orders
Orders
Orders From Last 24 Hours
11/16/24 11:37
US Legs, Bilateral [US Periph Venous LOWER Ext Richard] Routine

Documented by User: Julio Burgos MD 11/17/24 16:04
Plan
Plan
#Castrate-resistant prostate cancer
Recommend outpatient heme-onc follow-up to discuss adding ARSI
#Multifactorial anemia
Recommend decreasing Eliquis dose to 2.5 mg twice daily given renal insufficiency, advanced age, suspected blood loss, and no LE DVT
Do not recommend iron supplementation at this time given suspected sepsis
Recommend outpatient heme-onc follow-up for consideration of LIZZIE
#Sepsis 2/2 UTI
Monitor CBC, temperature curve, clinical status
Oncology Addendum:
Patient seen and evalutated and agree w/ resident note and plan as outlined
-castrate resistent prostate - outpt f/u
[2024-11-17] MEDS: 0.45%NACL 1000 IV ×2 (12:41→22:42)
[2024-11-17 13:32] LABS: Total Iron Binding Capacity 188 ug/dl (261-462)
[2024-11-17 14:03] LABS: Reticulocyte Count 5.7 % (0.4-2.8)
[2024-11-17 14:14] LABS: Ferritin 576.0 ng/ml (17.9-464.0)
[2024-11-17 14:19] LABS: Hematocrit 26.2 % (39.0-52.0); Hemoglobin 8.1 g/dL (13.0-18.0); Mean Corp Hgb Conc. 30.9 g/dL (33.0-37.0); Mean Corpuscular Volume 89.1 fL (80.0-94.0); Platelet Count 393 10^3/uL (130-400); Red Cell Dist. Width 17.5 % (11.5-14.5)
--- NOTE | 2024-11-17 14:36 | PN.CDI ---
CDI
- -
CDI:
Physician Documentation Request
Admit Date: 11/13/24 17:08
Dear Doctor Ever,
Hematology/Oncology consultation states ' Multifactorial anemia with etiologies including AOCD, renal insufficiency and blood loss.....Would reduce apixaban to 2.5 mg twice daily given bleeding, age and renal insufficiency'
Please clarify which of the following accurately represents the acuity of the blood loss anemia
____ Acute
Acute on Chronic
Chronic
____ Other
Use of terms such as suspected, likely, concern for, or probable (associated with a specific diagnosis that is being evaluated, monitored, or treated as if it exists) are acceptable and can be coded in the inpatient setting, when documented at the
time of discharge.
Thank you,
Billie Marquez RN, BSN
CDI Specialist
tiger text
Please use your independent medical judgment in providing your response.
[2024-11-17 14:46] LABS: Folate 17.0 ng/ml (2.76-20); Vitamin B12 > 1000 pg/ml (239-931)
--- NOTE | 2024-11-17 15:07 | W.PN.ID1 ---
Date of Service
Date of Service: November 17, 2024
Today's Communication
Continue antibiotics. Narrow to levofloxacin.
Assessment / Plan
# Complicated UTI
# Enterobacter cloacae bacteremia, source
# hx bilateral perc nephrostomy placed 10/19/24, left nephrostomy exchanged 11/05/24
-Nephrostomy urine cx's: Enterobacter cloacae and Enterococcus faecalis
Currently cefepime (d#5). Enterobacter cloacae is amp-C jar capper, tends to confer intrinsic resistance to ceftriaxone and Zosyn.
amoxicillin (d#4) to cover Enterococcus faecalis
- consolidate to oral levaquin
# Left pneumonia
# Cough
- urine legionella and strep pneumococcal Ag neg
- Sputum cx - unable to produce
- Narrow to levofloxacin 500 mg q. day
# Unstageable sacral decubitus
- No osteomyelitis on MRI
# Leukocytosis
-improving
-trend wbc
# ETHEL
-improving
- Adjust abx dose as needed
- Follow renal function.
# New-onset Afib
Conditions present on admission:
PE on Eliquis
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
Radiation cystitis
Bilateral ureteral obstruction status post bilateral percutaneous nephrostomy placement October 19, 2024
Chief Complaint
-: Pneumonia, UTI and Bacteremia
Subjective / Review of Systems
Review of Systems: No Fever and No Chills
Vital Signs / Physical Exam
Vital Signs
Vital Signs
Temp Pulse Resp BP Pulse Ox
97.5 F 88 17 140/76 96
11/17/24 08:00 11/17/24 08:00 11/17/24 08:00 11/17/24 08:00 11/17/24 08:00
Physical Exam
Constitutional: No Acute Distress, Chronically Ill and Non-toxic
Eyes: No Conjunctival Hemorrhage and Sclera Anicteric
Cardiovascular: Regular Rate and S1/S2
Gastrointestinal: Soft, Non Tender and Non Distended
Genito-Urinary: Clear Urine (Bilateral PCN's in place); Negative CVA Tenderness
Extremities: Negative Edema
Wound: Other (Reviewed wound photos: gluteal cleft wound with eschar)
Neurological: AO x 3
Objective Data
Lab Data
Lab Results
11/17/24 14:04
11/17/24 08:21
PT 25.8 Sec (11.4-14.6) H 11/13/24 13:52
INR 2.36 11/13/24 13:52
Estimated Creat Clear 48 ml/min 11/17/24 08:21
Lactic Acid Cancelled 11/14/24 06:23
Total Bilirubin 0.6 mg/dl (0.2-1.3) 11/15/24 08:20
AST 60 U/L (17-59) H 11/15/24 08:20
ALT 85 U/L (0-50) H 11/15/24 08:20
Alkaline Phosphatase 127 U/L (38-126) H 11/15/24 08:20
Most recent labs reviewed.
Micro Results:
11/13/24 13:54 Blood Culture - Preliminary
Blood/Venous No Growth in 4 days- Final report to follow
11/13/24 14:03 Blood Culture - Preliminary
Blood/Venous Enterobacter cloacae
Gram Stain - Preliminary
11/13/24 13:52 Urine Culture - Final
Urine Enterobacter cloacae
Enterococcus faecalis
11/13/24 14:03 Urine Culture - Final
Urine Enterobacter cloacae
Enterococcus faecalis
11/13/24 14:03 Legionella Urinary Antigen - Final
Urine Negative for Legionella pneumophila Serogroup 1 antigen.
A negative result does not rule out the possiblity of
Legionella infection due to other serogroups or species of
Legionella. Clinical correlation is recommended.
Streptococcus pneumoniae Antigen (M - Final
Negative for Streptococcus pneumoniae antigen.
A negative result does not exclude infection with
Streptococcus pneumoniae. Clinical correlation is
recommended.
11/13/24 13:54 Influenza Types A & B (VALERIE) - Final
Nasal Swab Negative for Influenza A & B, NAAT
Negative results must be combined with clinical observations
and patient history.
Nucleic Acid Amplification test (NAAT)performed on the
[employer] platform.
Imaging:
11/15/2024 MRI pelvis: No MRI evidence for acute osteomyelitis. Osseous metastatic disease with numerous osseous metastatic foci involving the lumbar spine, sacrum, pelvis, and bilateral proximal femurs. Largest lesions in the right superior pubic
ramus/pubic body and in the right iliac bone. Marked urinary bladder wall thickening may be infectious/inflammatory or neoplastic.
11/13/24 CXR: New opacity of the mid left lung field concerning for pneumonia.
[2024-11-17 15:25] VITALS: BP 138/84
[2024-11-17] MEDS: LEVAQUIN 500 MG PO (15:40)
[2024-11-17] MEDS: ZOFRAN 4 MG PO ×2 (15:41→20:51)
[2024-11-17] MEDS: LEVAQUIN 250 MG PO (16:11)
[2024-11-17 16:15] VITALS: BP 141/76
--- NOTE | 2024-11-17 16:35 | PTCARENOTE ---
Assumed care of pt from previous RN @ 1500. Pt c/o nausea, medicated per APR. Small amount of blood noted in tubing of R nephrostomy tube, Dr. Reed notified.
[2024-11-17 18:26] LABS: Hematocrit 24.1 % (39.0-52.0); Hemoglobin 7.5 g/dL (13.0-18.0); Mean Corp Hgb Conc. 31.1 g/dL (33.0-37.0); Mean Corpuscular Volume 88.3 fL (80.0-94.0); Platelet Count 373 10^3/uL (130-400); Red Cell Dist. Width 17.4 % (11.5-14.5)
[2024-11-17] MEDS: ELIQUIS 2.5 MG PO (20:50)
[2024-11-17 23:16] VITALS: BP 113/62
[2024-11-18 07:00] VITALS: BP 144/62
[2024-11-18] MEDS: ELIQUIS 2.5 MG PO ×2 (07:31→21:23)
[2024-11-18] MEDS: ALPHAGAN 0.2% EYE DROPS 1 DROP RIGHT EYE ×2 (07:32→21:23)
[2024-11-18] MEDS: SANTYL OINTMENT 1 APPLIC TOPICAL (07:32)
[2024-11-18] MEDS: TIMOPTIC 0.5% OPHTHALMIC SOLUTION 1 DROP RIGHT EYE ×2 (07:33→21:23)
[2024-11-18 07:38] LABS: Hematocrit 23.0 % (39.0-52.0); Hemoglobin 7.2 g/dL (13.0-18.0); Mean Corp Hgb Conc. 31.3 g/dL (33.0-37.0); Mean Corpuscular Volume 89.1 fL (80.0-94.0); Platelet Count 336 10^3/uL (130-400); Red Cell Dist. Width 17.4 % (11.5-14.5)
[2024-11-18 07:47] LABS: Blood Urea Nitrogen 24 mg/dl (9-20); Calcium 8.3 mg/dl (8.4-10.2); Carbon Dioxide 22 mmol/L (22-30); Chloride 115 mmol/L (98-107); Estimated Creatinine Clearance 52 ml/min; Glucose 101 mg/dl (70-99); Potassium 4.3 mmol/L (3.5-5.1); Sodium 141 mmol/L (135-145); eGFR > 60.00
[2024-11-18] MEDS: 0.45%NACL 1000 IV ×2 (07:48→17:23)
[2024-11-18] MEDS: ZOFRAN 4 MG PO ×2 (08:26→17:23)
--- NOTE | 2024-11-18 08:42 | W.PN.HOSP.TC ---
Today's Communication/Plan
-
Trend H&H, if less than 7 trend
Stable for discharge when bed available
Assessment / Plan
Assessment / Plan
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
nephrostomy tubes since 10/19, s/p irrigation on 11/06 presents to the ER for fatigue shortness of breath and cough. Patient is admitted to the hospital for management of sepsis.
Assessment and plan-
# Sepsis-resolved
Lactic acidosis resolved
# Acute complicated UTI-
Enterobacter bacteremia, likely secondary to UTI
Both Enterobacter and Enterococcus in urine cultures.
Finished course of cefepime and oral amoxicillin, currently narrowed down to levofloxacin.
ID, IR on board.
S/p bilateral percutaneous nephrostomy catheters replacement on 11/16/2024
Leukocytosis resolved as of 11/17/2024.
Continue to monitor CBC and temperature curve,
# Left lower lobe pneumonia-
Cough improving
Urine Legionella, pneumococcal, streptococcal antigens negative
Levofloxacin day 2 per ID
Appreciate ID inputs and management.
# new onset A-fib-
Multifactorial-aortic stenosis, sepsis, history of PE
\\Continue oral diltiazem.
[id number] score-3
Patient already on Eliquis for PE, currently reduced dose Eliquis (age, serum creatinine)
# Normocytic anemia-
Check h and H, hb trending low. If <7gm % transfuse
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
Heme-onc consulted, appreciate heme-onc inputs.
Heme-onc recommended outpatient follow-up for possible EPO.
# Castration resistant prostate cancer
Heme-onc consulted, recommended outpatient follow-up
Bony metastasis on CT chest and MRI pelvis (10/09, 11/15 respectively)
Elevated PSA levels
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
improved, eGFR greater than 60 today.
Serum creatinine of 1.1.
# Radiation cystitis-
Chronic, stable.
# DVT prophylaxis-
On Eliquis
#CODE STATUS-
DNR.
Anticipated Discharge: Within 24 hours
Subjective/Interval History
-
Date of Service: November 18, 2024
Nausea, abdominal tightness
Objective Data
-
Labs:
Laboratory Results
11/18/24
06:54
WBC 7.8
Hgb 7.2 L
Hct 23.0 L
Plt Count 336
Sodium 141
Potassium 4.3
Chloride 115 H
Carbon Dioxide 22
BUN 24 H
Creatinine 1.1
Glucose 101 H
Calcium 8.3 L
Vital Signs:
Vital Signs
Temp Pulse Resp BP Pulse Ox
98.1 F 84 16 144/62 97
11/18/24 07:00 11/18/24 07:00 11/18/24 07:00 11/18/24 07:00 11/18/24 07:00
I&O
11/17/24 11/18/24 11/19/24
06:59 06:59 06:59
Intake Total 240 / 240 1206 / 1206
Output Total 1675 / 1675 2200 / 2200
Balance -1435 / -1435 -994 / -994
Review of Systems
-
History Source: Patient
Constitutional: Reports Fatigue
Respiratory: Reports No Symptoms
Cardiac: Reports No Symptoms
Abdomen/GI: Reports Nausea and Other (Abdominal tightness around the nephrostomy tubes.)
Genitourinary: Reports No Symptoms
Musculoskeletal: Reports No Symptoms
Neuro: Reports No Symptoms
Endocrine: Reports No Symptoms
Physical Exam
-
General: No Apparent Distress and Comfortable
HEENT: Moist Mucous Membranes
Respiratory: Clear to Auscultation and Crackles; Negative Wheezes, Rales or Rhonchi
Cardiac: S1/S2 and Irregular Rhythm; Negative Murmur, Rub or Gallop
GI: Soft, Nontender, Nondistended and Normal Bowel Sounds
Genito-urinary: No Costovertebral Tender and Nephrostomy Tubes (Right tube-dark urine, left nephrostomy tube with fresh bright red blood in the urine. No erythema, edema or discharge or local rise of temperature at the site of his nephrostomy tube
placements, dressing intact and clean.)
Musculoskeletal: No Clubbing, No Cyanosis and No Edema
Neuro: AO x 3 and No Motor Deficits
Psych: Calm
Data Reviewed
-
CT Scan: Image personally visualized and interpreted, Report Reviewed by me, Discussed with Physician and Discussed with Patient
Labs: Labs Reviewed by me, Discussed with Physician, Discussed with Patient and Discussed with Family
--- NOTE | 2024-11-18 10:50 | W.PN.UPDATE ---
Update Note
Progress Note Update
I have independently evaluated the patient at the bedside.� I reviewed the case with the resident and agree with all documentation unless otherwise pacified.
AFVSS.� Denies any other new complaint, remains fatigued. Hemoglobin downtrending to 7.2
AO x 4, NAD.� Frail-appearing.� RRR, 2/6 YADIEL, normal S1 and 2.� Coarse sounds at the bases though otherwise clear.� Abdomen benign.� No edema or JVD, palpable pulses.� Skin warm and dry. �Neurologically intact
#Enterobacter bacteremia due to UTI. �S/p bilateral nephrostomy with tube replacement here.� Blood cultures positive for Enterobacter, urine culture with Enterobacter and Enterococcus.� Suspected AmpC resistance with Enterobacter. ID following,
transition patient from IV cefepime and oral ampicillin to oral levofloxacin. Trend CBC and temperature curve. ID appreciated
#Community-acquired pneumonia. Stable on room air. CT chest without signs of postobstructive pneumonia, demonstrated small metastases. Transition from IV cefepime and oral doxycycline to oral levofloxacin as above. Continue to monitor
#New onset AF.� [id number] 2-3.� Already on Eliquis for history of PE.� S/p diltiazem drip with chemical cardioversion. Cardiology recommends against standing diltiazem XR for now. Continue on telemetry
#Anemia of chronic disease.� Iron studies with signs of AOCD, also likely dilutional effect, no signs of hemolysis. Will continue to trend CBC and provide supportive transfusion for hemoglobin <7 or symptoms of anemia.� Remains on Eliquis, now at
reduced dose. Will plan to hold Eliquis if continuing to downtrend into tomorrow or he has notable bleeding
#Bone metastases. Seen on pelvic MRI, likely related to stage IV prostate cancer. Consulted oncology who recommended OP follow-up
#Unstageable sacral wound.� MRI negative for osteomyelitis though did show widespread metastasis. Wound care following wound care following
Diet � Regular, Ensure with meals
DVT prophylaxis � Eliquis 2.5
CODE STATUS � DNR
Disposition � SNF on Sunday 11/19
GOC -- Pt not interested in hospice discussions at this time
[2024-11-18 13:45] LABS: Hematocrit 23.1 % (39.0-52.0); Hemoglobin 7.3 g/dL (13.0-18.0)
--- NOTE | 2024-11-18 14:20 | CM ---
Patient has been approved for 4 days skilled Auth [id number], Ref # [id number], 11/18/24 to 11/21/24, updated review will need to be faxed to [phone], nurse first line production supervisor is aware, and bed is available tomorrow. Auth left on voice mail with admissions
at [facility]. Bed is available at [facility] tomorrow, 11/19/24.
[facility]
Report [phone]
--- NOTE | 2024-11-18 14:40 | W.PN.ID1 ---
Date of Service
Date of Service: November 18, 2024
Today's Communication
- consolidated to oral levaquin for 7 day total course
Assessment / Plan
# Complicated UTI
# Enterobacter cloacae bacteremia, source
# hx bilateral perc nephrostomy placed 10/19/24, left nephrostomy exchanged 11/05/24
-Nephrostomy urine cx's: Enterobacter cloacae and Enterococcus faecalis
- consolidated to oral levaquin for 7 day total course 11/13-11/19
# Left pneumonia
# Cough
- urine legionella and strep pneumococcal Ag neg
- Sputum cx - unable to produce
- Narrow to levofloxacin 500 mg q. day for 7 day total course
# Unstageable sacral decubitus
- No osteomyelitis on MRI
# Leukocytosis
-improving
-trend wbc
# ETHEL
-improving
- Adjust abx dose as needed
- Follow renal function.
# New-onset Afib
Conditions present on admission:
PE on Eliquis
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
Radiation cystitis
Bilateral ureteral obstruction status post bilateral percutaneous nephrostomy placement October 19, 2024
Chief Complaint
-: Pneumonia, UTI and Bacteremia
Subjective / Review of Systems
afebrile
bp stable
some nausea
Vital Signs / Physical Exam
Vital Signs
Vital Signs
Temp Pulse Resp BP Pulse Ox
98.1 F 84 16 144/62 97
11/18/24 07:00 11/18/24 07:00 11/18/24 07:00 11/18/24 07:00 11/18/24 07:40
Physical Exam
Constitutional: No Acute Distress
Cardiovascular: Regular Rate and S1/S2; Negative Murmur or Rub
Pulmonary: Clear and Symmetric; Negative Wheezes or Rales
Gastrointestinal: Soft, Non Tender, Non Distended and Normal Bowel Sounds
Skin: Warm and Dry; Negative Rash or Jaundice
Objective Data
Lab Data
Lab Results
11/18/24 12:48
11/18/24 06:54
PT 25.8 Sec (11.4-14.6) H 11/13/24 13:52
INR 2.36 11/13/24 13:52
Estimated Creat Clear 52 ml/min 11/18/24 06:54
Lactic Acid Cancelled 11/14/24 06:23
Total Bilirubin 0.6 mg/dl (0.2-1.3) 11/15/24 08:20
AST 60 U/L (17-59) H 11/15/24 08:20
ALT 85 U/L (0-50) H 11/15/24 08:20
Alkaline Phosphatase 127 U/L (38-126) H 11/15/24 08:20
Most recent labs reviewed.
Micro Results:
11/13/24 13:54 Blood Culture - Final
Blood/Venous No Growth - Final Report
11/13/24 14:03 Blood Culture - Preliminary
Blood/Venous Enterobacter cloacae
Gram Stain - Preliminary
11/13/24 13:52 Urine Culture - Final
Urine Enterobacter cloacae
Enterococcus faecalis
11/13/24 14:03 Urine Culture - Final
Urine Enterobacter cloacae
Enterococcus faecalis
11/13/24 14:03 Legionella Urinary Antigen - Final
Urine Negative for Legionella pneumophila Serogroup 1 antigen.
A negative result does not rule out the possiblity of
Legionella infection due to other serogroups or species of
Legionella. Clinical correlation is recommended.
Streptococcus pneumoniae Antigen (M - Final
Negative for Streptococcus pneumoniae antigen.
A negative result does not exclude infection with
Streptococcus pneumoniae. Clinical correlation is
recommended.
11/13/24 13:54 Influenza Types A & B (VALERIE) - Final
Nasal Swab Negative for Influenza A & B, NAAT
Negative results must be combined with clinical observations
and patient history.
Nucleic Acid Amplification test (NAAT)performed on the
[employer] platform.
Imaging:
11/15/2024 MRI pelvis: No MRI evidence for acute osteomyelitis. Osseous metastatic disease with numerous osseous metastatic foci involving the lumbar spine, sacrum, pelvis, and bilateral proximal femurs. Largest lesions in the right superior pubic
ramus/pubic body and in the right iliac bone. Marked urinary bladder wall thickening may be infectious/inflammatory or neoplastic.
11/13/24 CXR: New opacity of the mid left lung field concerning for pneumonia.
[2024-11-18 15:00] VITALS: BP 136/72
--- NOTE | 2024-11-18 15:00 | PTCARENOTE ---
11/18- Patient has intermittent nausea, denies vomiting. He is continent with clear straw-colored urine in urinal. BL Nephrostomy tubes draining clear orange urine with blood tinged streaks. Notified Physician. Patient able to walk with assist
with walker short distances.
[2024-11-18 23:36] VITALS: BP 129/70
[2024-11-19] MEDS: ELIQUIS 2.5 MG PO (07:24)
[2024-11-19] MEDS: TIMOPTIC 0.5% OPHTHALMIC SOLUTION 1 DROP RIGHT EYE (07:24)
[2024-11-19] MEDS: SANTYL OINTMENT 1 APPLIC TOPICAL (07:24)
[2024-11-19] MEDS: ALPHAGAN 0.2% EYE DROPS 1 DROP RIGHT EYE (07:24)
[2024-11-19] MEDS: LEVAQUIN 750 MG PO (07:24)
[2024-11-19 07:25] VITALS: BP 125/86
--- NOTE | 2024-11-19 08:02 | W.PN.HOSP.TC ---
Today's Communication/Plan
-
Plan for discharge today.
Assessment / Plan
Assessment / Plan
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
nephrostomy tubes since 10/19, s/p irrigation on 11/06 presents to the ER for fatigue shortness of breath and cough. Patient is admitted to the hospital for management of sepsis.
Assessment and plan-
# Sepsis-resolved
Lactic acidosis resolved
# Acute complicated UTI-
Enterobacter bacteremia, likely secondary to UTI
Both Enterobacter and Enterococcus in urine cultures.
Finished course of cefepime and oral amoxicillin, currently narrowed down to levofloxacin.
ID, IR on board.
S/p bilateral percutaneous nephrostomy catheters replacement on 11/16/2024
Leukocytosis resolved as of 11/17/2024.
Continue to monitor CBC and temperature curve,
# Left lower lobe pneumonia-
Cough improving
Urine Legionella, pneumococcal, streptococcal antigens negative
Levofloxacin day 2 per ID
Appreciate ID inputs and management.
# new onset A-fib-
Multifactorial-aortic stenosis, sepsis, history of PE
\\Continue oral diltiazem.
[id number] score-3
Patient already on Eliquis for PE, currently reduced dose Eliquis (age, serum creatinine)
# Normocytic anemia-
Check h and H, hb trending low. If <7gm % transfuse
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
Heme-onc consulted, appreciate heme-onc inputs.
Heme-onc recommended outpatient follow-up for possible EPO.
# Castration resistant prostate cancer
Heme-onc consulted, recommended outpatient follow-up
Bony metastasis on CT chest and MRI pelvis (10/09, 11/15 respectively)
Elevated PSA levels
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
improved, eGFR greater than 60 today.
Serum creatinine of 1.1.
# Radiation cystitis-
Chronic, stable.
# DVT prophylaxis-
On Eliquis
#CODE STATUS-
DNR.
Anticipated Discharge: Today
Subjective/Interval History
-
Date of Service: November 19, 2024
His abdominal tightness resolved, no blood-tinged urine in the nephrostomy tubes overnight. With good urine output.
Objective Data
-
Labs:
Laboratory Results
11/19/24
07:40
WBC Pending
Hgb Pending
Hct Pending
Plt Count Pending
Sodium Pending
Potassium Pending
Chloride Pending
Carbon Dioxide Pending
BUN Pending
Creatinine Pending
Glucose Pending
Calcium Pending
Vital Signs:
Vital Signs
Temp Pulse Resp BP Pulse Ox
98 F 83 20 129/70 97
11/18/24 23:36 11/18/24 23:36 11/18/24 23:36 11/18/24 23:36 11/19/24 00:48
I&O
11/18/24 11/19/24 11/20/24
06:59 06:59 06:59
Intake Total 1206 / 1206 780 / 780
Output Total 2200 / 2200 2425 / 2425
Balance -994 / -994 -1645 / -1645
Review of Systems
-
History Source: Patient
Constitutional: Reports Fatigue
EENT: Reports No Symptoms Reported
Respiratory: Reports No Symptoms
Cardiac: Reports No Symptoms
Abdomen/GI: Reports Nausea
Genitourinary: Reports No Symptoms
Musculoskeletal: Reports No Symptoms
Skin: Reports No Symptoms
Neuro: Reports No Symptoms
Hematologic / Lymphatic: Reports No Symptoms
Physical Exam
-
General: No Apparent Distress and Comfortable
HEENT: Moist Mucous Membranes and Anicteric
Respiratory: Clear to Auscultation; Negative Wheezes, Rales, Rhonchi or Crackles
Cardiac: S1/S2, Irregular Rhythm and Murmur (Systolic murmur 2/6 in intensity); Negative Rub, JVD or HJR
GI: Soft, Nontender, Nondistended and Normal Bowel Sounds
Musculoskeletal: No Edema
Skin: Warm
Neuro: AO x 3 and No Motor Deficits
Psych: Calm
Data Reviewed
-
Labs: Labs Reviewed by me, Discussed with Physician, Discussed with Patient and Discussed with Family
[2024-11-19 08:05] LABS: Hematocrit 25.6 % (39.0-52.0); Hemoglobin 7.8 g/dL (13.0-18.0); Mean Corp Hgb Conc. 30.5 g/dL (33.0-37.0); Mean Corpuscular Volume 88.3 fL (80.0-94.0); Platelet Count 323 10^3/uL (130-400); Red Cell Dist. Width 17.2 % (11.5-14.5)
[2024-11-19 08:22] LABS: Blood Urea Nitrogen 21 mg/dl (9-20); Calcium 8.5 mg/dl (8.4-10.2); Carbon Dioxide 26 mmol/L (22-30); Chloride 110 mmol/L (98-107); Estimated Creatinine Clearance 57 ml/min; Glucose 93 mg/dl (70-99); Potassium 4.4 mmol/L (3.5-5.1); Sodium 138 mmol/L (135-145); eGFR > 60.00
--- NOTE | 2024-11-19 09:00 | W.DCSUMMARY ---
Documented by User: Rosey Coates MD, Resident 11/19/24 15:01
Discharge Summary
Discharge Data
Date of Admission: 11/13/24
Date of Discharge: 11/19/24
-
Pending Results: No
Hospital Course
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
nephrostomy tubes since 10/19, s/p irrigation on 11/06 presents to the ER for fatigue shortness of breath and cough. Patient is admitted to the hospital for management of sepsis.
Hospital Course -
Sepsis secondary to acute complicated UTI -
Patient is admitted to the hospital with enterobacter bacteremia, likely secondary to complicated UTI as his urine cultures were positive for both Enterobacter and Enterococcus in urine cultures. Patient was started on cefepime, and oral
amoxicillin, Ir was consulted, and his b/l neprhostomy tubes were changed on 11/16/24. Patients leukocytosis, and fever curves, blood cultures resolved after 5 day course of IV antibiotics. ID managed his antibiotics throughout the hospital stay, and
switched them to Levaquin. Patient completed his levaquin dose on 11/19/24
New onset pneumonia -
During his hospital stay he is also diagnosed to have pneumonia, and the antibiotics for sepsis also covered his pneumonia, which resolved, and no repeat chest X ray is warranted.
New onset A fib -
cardiology was consulted, the cause was thought to be likely multifactorial, from a confluence of Multifactorial-aortic stenosis, sepsis, history of PE, he was started on cardizem drip upon admission, which was switched to oral cardizem, and patient
is already on eliquis for PE. his [id number] score is at 3, and eliquis was dose reduced for age, and serum creatinine criteria.
Hematology and oncology was consulted due to new onset metastasis on CT and MRI obtained in the hospital from castration resistant prostrate cancer, and they recommended outpatient follow up closely.
Along with the above, patient is also found to have ETHEL secondary to sepsis that resolved with IV hydration, and his serum cr returned back to baseline. serum electrolytes and CBC were monitored throughout the hospital stay, and patient did not
require any correction.
All other stable chronic medical conditions prior to this hospital admission are treated with home medication regimen without changes.
Important workup during this hospital stay -
Abomen/pelvis CT - 10/15/24
IMPRESSION:
New mild left hydronephrosis and hydroureter. No obstructing mass nor stone identified.
Stable mild right hydronephrosis and hydroureter now with new increased density to the fluid in the right collecting system suggesting hemorrhagic products.
Rodriguez catheter and air in the bladder. New.
Mild diverticulosis. Stable
Pelvis MRI - 11/15/24 -
IMPRESSION:
No MRI evidence for acute osteomyelitis.
Osseous metastatic disease with numerous osseous metastatic foci involving the lumbar spine, sacrum, pelvis, and bilateral proximal femurs. Largest lesions in the right superior pubic ramus/pubic body and in the right iliac bone.
Marked urinary bladder wall thickening may be infectious/inflammatory or neoplastic.
Chest CT - 11/16/24 -
IMPRESSION:
Small bilateral pleural effusions, left greater than right.
Progressive mild bronchial wall thickening is noted especially in the lung bases, with bronchitis.
Multiple tiny sub-6 mm pulmonary nodules have developed or progressed since prior examination. Although possibly infectious or inflammatory, possibility of tiny metastatic nodules cannot be entirely excluded.
Slightly increased subcarinal lymph node adenopathy measuring 1.2 mm, previous measuring 9 mm in short axis.
Trace pericardial effusion.
Progressive osteoblastic metastatic disease, as described. There appears to be mild progressive pathologic diminished stature of T4, T5, and T6.
Peripheral vascular ultrasound - 11/16/24
IMPRESSION:
No evidence of DVT from the common femoral through the upper calf veins on either side.
catheter Change - 11/16/24 -
IMPRESSION:
Successful fluoroscopically guided exchange of bilateral percutaneous nephrostomy catheters, as above.
Discharge Plan
-
Patient Disposition: Longterm/SNF
Discharge Diagnosis/Procedures: Enterobacter bacteremia due to complicated UTI
Urine culture with Enterobacter and Enterococcus
Community-acquired pneumonia
New onset atrial fibrillation
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
Status post TURP and XRT
Status post bilateral nephrostomy tube
Chronic hematuria
History of PE on Eliquis
Condition: Fair
Diet: No restrictions
Activity: As tolerated
Driving Restrictions: Not until seen by your Dr
Bathing Restrictions: None
Blood Work: BMP, mag level, CBC with differential in 1 week after discharge from hospital
Other Services: PT and OT
Activity Restrictions/Additional Instructions:
Wound Care Instructions
Gluteal cleft: clean with saline, skin prep periwound, Santyl(alisha thick), adaptic, folded 2x2 gauze(or alginate) and silicone foam (taco'd into cleft) daily.
Buttocks: silicone foam change prn soilage.
air mattress
offloading cushion when sitting
Increase protein in diet
Follow up at wound care center call for an appointment.
Follow-up with wound care in 2 weeks
Follow-up with oncology/hematology in 2 to 3 weeks
Follow-up with urology in 2 to 3 weeks
Referrals:
Camden Curtis DO [Active, Hematology / Oncology] - in two to three weeks
Referral Note: Castration resistant prostrate carcinoma,
Yuri Pineda DO [Family Provider, Family Practice]
Reta Lopez NP [Specified Professional Personl, Palliative Care] - in less than 1 week
Additional Discharge Medication Instructions: Completed antibiotics in the hospital on 11/19/2024
Decreased home Eliquis from 5 mg twice daily to 2.5 mg twice daily
Prescriptions:
New
Eliquis 2.5 mg Tablet
2.5 mg PO BID 30 Days Qty: 60 0RF
acetaminophen 325 mg Tablet
650 mg PO Q4HPRN PRN (Reason: mild pain/RAMOS/temp> 100.4F) 30 Days Qty: 30 0RF
Continued
therapeutic multivitamin Tablet
1 tab PO DAILY
brimonidine-timolol 0.2-0.5 % Drops
1 drp RIGHT EYE BID
tramadol 50 mg tablet
50 mg PO Q6HPRN PRN (Reason: severe pain) Qty: 30 0RF
Discontinued
Eliquis 5 mg Tablet
5 mg PO BID Qty: 60 0RF
Discharge Orders:
Discharge Patient (As Directed); Ordered 11/19/24
Ordered By: Rosey Coates
Discharge Date and Time
Discharge Date/Time: 11/19/24 14:22
Print Language: SWEDISH

Documented by User: Julio Reed DO 11/24/24 15:03
Discharge Summary
Discharge Data
Date of Admission: 11/13/24
Date of Discharge: 11/19/24
Total time spent discharging patient (in min): 36
Discharge Plan
-
Patient Disposition: Longterm/SNF
Discharge Diagnosis/Procedures: Enterobacter bacteremia due to complicated UTI
Urine culture with Enterobacter and Enterococcus
Community-acquired pneumonia
New onset atrial fibrillation
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
Status post TURP and XRT
Status post bilateral nephrostomy tube
Chronic hematuria
History of PE on Eliquis
Condition: Fair
Diet: No restrictions
Activity: As tolerated
Driving Restrictions: Not until seen by your Dr
Bathing Restrictions: None
Blood Work: BMP, mag level, CBC with differential in 1 week after discharge from hospital
Other Services: PT and OT
Activity Restrictions/Additional Instructions:
Wound Care Instructions
Gluteal cleft: clean with saline, skin prep periwound, Santyl(alisha thick), adaptic, folded 2x2 gauze(or alginate) and silicone foam (taco'd into cleft) daily.
Buttocks: silicone foam change prn soilage.
air mattress
offloading cushion when sitting
Increase protein in diet
Follow up at wound care center call for an appointment.
Follow-up with wound care in 2 weeks
Follow-up with oncology/hematology in 2 to 3 weeks
Follow-up with urology in 2 to 3 weeks
Referrals:
Camden Curtis DO [Active, Hematology / Oncology] - in two to three weeks
Referral Note: Castration resistant prostrate carcinoma,
Yuri Pineda DO [Family Provider, Family Practice]
Reta Lopez NP [Specified Professional Personl, Palliative Care] - in less than 1 week
Additional Discharge Medication Instructions: Completed antibiotics in the hospital on 11/19/2024
Decreased home Eliquis from 5 mg twice daily to 2.5 mg twice daily
Prescriptions:
New
Eliquis 2.5 mg Tablet
2.5 mg PO BID 30 Days Qty: 60 0RF
acetaminophen 325 mg Tablet
650 mg PO Q4HPRN PRN (Reason: mild pain/RAMOS/temp> 100.4F) 30 Days Qty: 30 0RF
Continued
therapeutic multivitamin Tablet
1 tab PO DAILY
brimonidine-timolol 0.2-0.5 % Drops
1 drp RIGHT EYE BID
tramadol 50 mg tablet
50 mg PO Q6HPRN PRN (Reason: severe pain) Qty: 30 0RF
Discontinued
Eliquis 5 mg Tablet
5 mg PO BID Qty: 60 0RF
Discharge Orders:
Discharge Patient (As Directed); Ordered 11/19/24
Ordered By: Rosey Coates
Discharge Date and Time
Discharge Date/Time: 11/19/24 14:22
Print Language: SWEDISH
--- NOTE | 2024-11-19 09:22 | CM ---
Patient to transfer by ambulance to [facility] today, berry picker machine operator has been arranged Auth provided to admissions at [facility], and case management rn spoke with nurse facepiece line supervisor who is aware of plan.
Plan; Skilled placement at [facility] today
[facility]
Report [phone]
[2024-11-19 14:09] VITALS: BP 122/75
== END 2024-11-19 14:22 | DRG 871 ==
LOC: 4 WEST ACU 17:08
PROVIDERS: Nurse Practitioner Family; Radiology Diagnostic Radiology; Student in an Organized Health Care Education/Training Program; ADMITTING PHYSICIAN Internal Medicine; ATTENDING PHYSICIAN Internal Medicine; CONSULT PHYSICIAN Internal Medicine Cardiovascular Disease; CONSULT PHYSICIAN Internal Medicine Critical Care Medicine; CONSULT PHYSICIAN Internal Medicine Hematology & Oncology; CONSULT PHYSICIAN Internal Medicine Infectious Disease; EMERGENCY PHYSICIAN Student in an Organized Health Care Education/Training Program; FAMILY PHYSICIAN Family Medicine
PROC: 0T25X0Z Change Drainage Device in Kidney, External Approach (ICD-10-PCS; 2024-11-16)
DX: A41.89 Other specified sepsis (principal); J18.9 Pneumonia, unspecified organism; C79.51 Secondary malignant neoplasm of bone; N17.9 Acute kidney failure, unspecified; N30.41 Irradiation cystitis with hematuria; E87.20 Acidosis, unspecified; N13.1 Hydronephrosis with ureteral stricture, not elsewhere classified; T83.512A Infection and inflammatory reaction due to nephrostomy catheter, initial encounter; D62 Acute posthemorrhagic anemia; I48.91 Unspecified atrial fibrillation; Z86.711 Personal history of pulmonary embolism; Z79.01 Long term (current) use of anticoagulants; D63.8 Anemia in other chronic diseases classified elsewhere; Z66 Do not resuscitate; E66.9 Obesity, unspecified; Y84.2 Radiological procedure and radiotherapy as the cause of abnormal reaction of the patient, or of later complication, without mention of misadventure at the time of the procedure; Z85.46 Personal history of malignant neoplasm of prostate; Z90.79 Acquired absence of other genital organ(s); Z92.3 Personal history of irradiation; Z87.891 Personal history of nicotine dependence; B96.89 Other specified bacterial agents as the cause of diseases classified elsewhere; E78.00 Pure hypercholesterolemia, unspecified; G89.29 Other chronic pain; L89.159 Pressure ulcer of sacral region, unspecified stage; N18.32 Chronic kidney disease, stage 3b
CPT/HCPCS: 50435; 71045; 71250; 72197; 80048; 80053; 81003; 81015; 82607; 82728; 82746; 83540; 83550; 83605; 85014; 85018; 85025; 85027; 85045; 85610; 86850; 86900; 86901; 87040; 87077; 87086; 87154; 87186; 87205; 87449; 87502; 87811; 87899; 93005; 93970; 96361; 96365; 96366; 96375; 97163; 97167; 97530; 99285; A9575; C1729; C1769

== ENCOUNTER → 2024-11-29 11:40 | Outpatient (REF) | payer OTHER, MEDICARE, SELFPAY ==
[2024-11-29 13:11] LABS: Hematocrit 24.9 % (39.0-52.0); Hemoglobin 7.6 g/dL (13.0-18.0); Mean Corp Hgb Conc. 30.5 g/dL (33.0-37.0); Mean Corpuscular Volume 86.2 fL (80.0-94.0); Nucleated Red Blood Cells % 0 % (-); Platelet Count 222 10^3/uL (130-400); Red Cell Dist. Width 17.6 % (11.5-14.5)
[2024-11-29 13:45] LABS: Blood Urea Nitrogen 18 mg/dl (9-20); Calcium 8.4 mg/dl (8.4-10.2); Carbon Dioxide 28 mmol/L (22-30); Chloride 103 mmol/L (98-107); Glucose 98 mg/dl (70-99); Potassium 4.1 mmol/L (3.5-5.1); Sodium 135 mmol/L (135-145); eGFR > 60.00
== END ==
LOC: OLABP 11:40
PROVIDERS: ATTENDING PHYSICIAN Family Medicine
DX: I48.0 Paroxysmal atrial fibrillation (principal); A41.9 Sepsis, unspecified organism; N39.0 Urinary tract infection, site not specified; J18.9 Pneumonia, unspecified organism; B95.2 Enterococcus as the cause of diseases classified elsewhere; D72.829 Elevated white blood cell count, unspecified; I26.99 Other pulmonary embolism without acute cor pulmonale; N30.40 Irradiation cystitis without hematuria
CPT/HCPCS: 36415; 80048; 85025

== ENCOUNTER → 2024-12-01 11:41 | Outpatient (REF) | payer OTHER, MEDICARE, SELFPAY ==
[2024-12-01 13:54] LABS: Hematocrit 26.8 % (39.0-52.0); Hemoglobin 8.4 g/dL (13.0-18.0); Mean Corp Hgb Conc. 31.3 g/dL (33.0-37.0); Mean Corpuscular Volume 83.5 fL (80.0-94.0); Nucleated Red Blood Cells % 0 % (-); Platelet Count 229 10^3/uL (130-400); Red Cell Dist. Width 17.2 % (11.5-14.5)
== END ==
LOC: OLABP 11:41
PROVIDERS: ATTENDING PHYSICIAN Family Medicine
DX: I48.0 Paroxysmal atrial fibrillation (principal); B95.2 Enterococcus as the cause of diseases classified elsewhere; D72.829 Elevated white blood cell count, unspecified; I26.99 Other pulmonary embolism without acute cor pulmonale; N30.40 Irradiation cystitis without hematuria; N39.0 Urinary tract infection, site not specified; A41.9 Sepsis, unspecified organism
CPT/HCPCS: 36415; 85025

== ENCOUNTER → 2024-12-06 12:08 | Outpatient (REF) | payer OTHER, MEDICARE, SELFPAY ==
[2024-12-06 12:39] LABS: Hematocrit 27.0 % (39.0-52.0); Hemoglobin 8.6 g/dL (13.0-18.0); Mean Corp Hgb Conc. 31.9 g/dL (33.0-37.0); Mean Corpuscular Volume 84.1 fL (80.0-94.0); Nucleated Red Blood Cells % 0.3 % (-); Platelet Count 298 10^3/uL (130-400); Red Cell Dist. Width 17.0 % (11.5-14.5)
== END ==
LOC: OLABP 12:08
PROVIDERS: ATTENDING PHYSICIAN Family Medicine
DX: A41.9 Sepsis, unspecified organism (principal); N39.0 Urinary tract infection, site not specified; J18.9 Pneumonia, unspecified organism; I48.0 Paroxysmal atrial fibrillation; B95.2 Enterococcus as the cause of diseases classified elsewhere; D72.829 Elevated white blood cell count, unspecified; I26.99 Other pulmonary embolism without acute cor pulmonale; N30.40 Irradiation cystitis without hematuria
CPT/HCPCS: 36415; 85025

== ENCOUNTER 2024-12-14 14:16 | Inpatient (IN) | payer MEDICARE, SELFPAY ==
[2024-12-14] VITALS (14 sets, daily range): BP systolic 94–134; BP diastolic 43–75; BMI 24.7; BMI 23.7
--- NOTE | 2024-12-14 10:13 | ED.GENMED ---
History of Present Illness
General
Chief Complaint: Catheter/Tube Problem
Source: patient
Exam Limitations: none
Time Seen by Provider: 12/14/24 09:59
Nursing documentation reviewed up to this point in time: agreed with
History of Present Illness
History of Present Illness:
89-year-old male with a past medical history as noted presents to the ER from [facility] where he has been in rehab since recent admission; he presents primarily for evaluation of a malfunctioning nephrostomy tube although he also had report of scant
blood in his stools earlier today.
Regarding his presenting complaint: He has a history of prostate cancer status post radiation complicated by radiation cystitis and ureteral obstruction requiring bilateral nephrostomy tubes. Most recently had malfunction of the left tube requiring
exchange on 11/05 with [facility] here. Patient was just admitted to this hospital 11/13 until 11/19 for sepsis secondary to complicated UTI and pneumonia. Also discovered to have new onset A-fib at the time; he is on Eliquis both for this reason as well
as for history of PE in September of this year. He says that over the past week at [facility] his left nephrostomy tube has had no output whatsoever. He says the bag has been consistently empty and ultimately he was sent in to have this evaluated. He
does note that since arrival in the ER there has been a very small amount of yellow urine in the left nephrostomy bag which is the first urine he has seen in the past week. He has not had any abdominal or flank pain. He denies fever or chills.
Right nephrostomy tube functioning is normal.
In addition to the above patient reports that the staff at [facility] told him there was 'a little blood' in his stool this morning. He says he did not see it. He denies any vomiting. Denies chest pain, shortness of breath, dizziness or any other
acute issues. He denies any history of GI bleeding. He is on Eliquis as above.
Past History
Past History
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
ED Past Surgical History: Urological (Prostatectomy 2004, bilateral nephrostomy tubes October 2024)
Social History
Tobacco: Non-smoker
Alcohol: Occasional
Drug: None
Personal:
Living: with family
Employment: Retired
Family History
Family History: Other (Noncontributory)
Review of Systems
Review of Systems
All Other Systems: ROS reviewed and negative except as documented in HPI and ROS
Constitutional: Denies fever or chills
Respiratory: Denies trouble breathing
Cardiac: Denies chest pain
ABD/GI: Reports bloody stools; Denies abdominal pain, nausea or vomiting
: Reports other (Malfunction of nephrostomy tube on the left); Denies flank pain
Musculoskeletal: Denies neck pain or back pain
Neurological: Denies dizzy or headache
Phy Exam
Physical Exam
Physical Exam:
General: Awake, alert, oriented x3; no acute distress
Head: Normocephalic, atraumatic
Eyes: Conjunctiva normal
Throat: Airway intact, handling secretions
Neck: Trachea midline, supple without meningismus
Lungs: Clear to auscultation bilaterally, no wheezing, rales, rhonchi
Heart: Regular rate and rhythm, no murmurs, gallops, or rubs
Abd: Soft, non distended, nontender
Rectal: Hemorrhoids noted no active bleeding, brown stool in rectal vault trace positive Hemoccult
Back: No CVA tenderness; bilateral nephrostomy tubes noted with no erythema or drainage around the insertion sites�notably there is a scant amount of urine in the left nephrostomy bag which appears yellow and relatively clear, right nephrostomy bag
essentially full with clear yellow urine
Neuro: Grossly intact
Skin: Patient has unstageable sacral wound no signs of acute infection
Extremities: Warm and well-perfused
Scores
Heart Failure Risk
Heart Failure Risk Score: Not Applicable
Heart Score for Chest Pain Patients
STEMI patient?: Not applicable
Withdrawal Assessment of Alcohol
Withdrawal Assessment Completed?: Not applicable
Course
Orders/Labs/Results
Orders:
Orders
12/14/24 10:20
CT Abd/pel Without Iv Or Oral Urgent
Comment:
Reason For Exam: decreased output from left nephrostomy
12/14/24 10:23
Type+Screen Urgent
Complete Blood Count/With Diff Urgent
Comprehensive Metabolic Panel Urgent
12/14/24 10:52
IRAD CONSULT Urgent
Consulting Provider: Daniel Cordon
Was physician already notified: Yes
Procedure being ordered, including laterality if applicable: left nephrostomy evaluation
Acknowledgement that appropriate orders are entered: Yes
12/14/24 10:53
0.9% Sodium Chloride 1000 ml [Nss] 1,000 ml IV BOLUS
Abnormal Lab Results
12/14/24
10:23
RBC 3.22 L 10^6/uL
(4.70-6.10)
Hgb 8.5 L g/dL
(13.0-18.0)
Hct 26.4 L %
(39.0-52.0)
MCH 26.4 L pg
(27.0-31.0)
MCHC 32.2 L g/dL
(33.0-37.0)
RDW 16.7 H %
(11.5-14.5)
Abs Immat Gran (auto) 0.1 H 10^3/uL
(0-0.05)
Immature Gran % 0.9 H %
(0-0.5)
Sodium 127 L mmol/L
(135-145)
Chloride 96 L mmol/L
(98-107)
BUN 40 H mg/dl
(9-20)
Creatinine 2.4 H mg/dL
(0.7-1.3)
Glucose 133 H mg/dl
(70-99)
Alkaline Phosphatase 141 H U/L
(38-126)
Albumin 2.9 L g/dl
(3.5-5.0)
12/14/24 10:23
12/14/24 10:23
Vital Signs
Initial and Last Documented VS:
Initial Vital Signs
BP
108/62
12/14/24 09:58
Last Documented Vital Signs
Temp Pulse Resp BP Pulse Ox
36.6 C 95 16 94/51 94
12/14/24 10:03 12/14/24 11:09 12/14/24 11:09 12/14/24 11:09 12/14/24 11:01
MDM/Problems Addressed
Differential Diagnosis Includes:
Decreased output: Dislodged/displaced nephrostomy, clogged nephrostomy
GI bleeding: Hemorrhoids, AVM, polyp, diverticular bleed, etc
MDM/Problems Addressed:
89-year-old male presents to the ER primarily for issues with his left nephrostomy tube as described above. Also noted to have 1 episode of scant blood in his stool today. Regarding nephrostomy issue�very small amount of output this morning but he
reports no output x 1 week. He has no flank pain or any other symptoms. Vital signs are normal. Discussed case with interventional radiology recommending CT without contrast to evaluate for position of tube and will reassess. Regarding GI
bleeding: Hemorrhoids noted, brown stool in the rectal vault there was trace positive Hemoccult. He is on Eliquis. Will plan to check labs to rule out anemia. He is hemodynamically stable. Suspect this was likely hemorrhoidal bleeding.
Labs reviewed: CBC shows stable anemia with hemoglobin 8.5. Overall suspect scant GI bleeding which this morning was likely hemorrhoidal and patient to be followed on an outpatient basis with repeat labs in a few days unless there is recurrence.
Awaiting rest of workup.
Chemistry returned back showed mild hyponatremia but more significantly he has acute kidney injury with a creatinine of 2.4 from a baseline of 0.9. Likely obstructive in the setting of obstructed nephrostomy tube. CT showed appropriate position of
the tube but shows hydronephrosis on the left. Discussed with interventional radiologist, will take for replacement today. I think this point we will admit for trending of labs�both hemoglobin and creatinine�to ensure stability. I did put in for
some IV fluids. Discussed case with hospitalist for admission.
Chronic conditions affecting care:
Prostate cancer, A-fib/PEs on Eliquis
*Radiology
Radiology exam reviewed: radiology read reviewed
*Pulse Oximetry
SaO2: 94
Oxygen Mode of Delivery: Room air
Patient hypoxic: no (94%)
*Critical Care Note
Total Time (30-74mins, 75-104mins- exclusive of procedures): Not Applicable
Data Reviewed
Review of Other/Old Records Reveals: Labs, Records and Discharge Summary
Source: patient and records
Patient Management
Discussion with other providers: Hospitalist (Discussed with hospitalist) and Custom Bookbinder (Discussed with interventional radiologist)
Escalation/DeEscalation of care consider admission/obs:
Admission indicated
ED Attending Note
-
Portions of this chart may have been created with voice recognition software.� Occasional wrong word or��sound alike� substitutions may have occurred due to the inherent limitations of voice recognition software.
Discharge Plan
Departure
Patient Disposition: Admit
Date of Disposition: 12/14/24
Time of Disposition: 11:54
Admit to doctor: Leydi
Presentation/result/management discussed w/ accepting MD/DO: Hospitalist
Discharge Problem:
Malfunction of nephrostomy tube, GI bleeding, ETHEL (acute kidney injury)
Instructions: GI bleed (DC), Percutaneous nephrostomy
Prescriptions:
No Action
therapeutic multivitamin Tablet
1 tab PO DAILY
brimonidine-timolol 0.2-0.5 % Drops
1 drp RIGHT EYE BID
Eliquis 2.5 mg Tablet
2.5 mg PO BID 30 Days Qty: 60 0RF
acetaminophen 325 mg Tablet
650 mg PO Q4HPRN PRN (Reason: mild pain/RAMOS/temp> 100.4F) 30 Days Qty: 30 0RF
tramadol 50 mg tablet
50 mg PO Q6HPRN PRN (Reason: severe pain) Qty: 30 0RF
Referrals:
Destniee Balderrama DO [Family Provider, General] - Follow up in 2-3 days
Activity Restrictions/Additional Instructions:
Patient should have repeat blood work within the next few days to ensure no change in his hemoglobin level. If any additional GI bleeding is noted he should return to the ER.
Interventions
Interventions:
*Risk Screen - Suicide Last Done: 12/14/24 10:08
*General Assessment Last Done: 12/14/24 10:08
*Neglect/Abuse Screening Last Done: 12/14/24 10:08
*ED- Fall Risk Assessment Last Done: 12/14/24 10:10
*ED COVID-19 Vaccine History Last Done: 12/14/24 10:10
*ED Influenza Vaccine History Last Done: 12/14/24 10:10
DV-Wwfupz-Amcdaayozo Assessment Last Done: 12/14/24 10:10
ED- Cardiac Assessment Last Done: 12/14/24 10:40
ED-Male Genitourinary Assessment Last Done: 12/14/24 10:10
ED- Pulmonary Assessment Last Done: 12/14/24 10:40
Discharge Date and Time
Print Language: KOSOVAN
[2024-12-14 10:37] LABS: Hematocrit 26.4 % (39.0-52.0); Hemoglobin 8.5 g/dL (13.0-18.0); Mean Corp Hgb Conc. 32.2 g/dL (33.0-37.0); Mean Corpuscular Volume 82.0 fL (80.0-94.0); Nucleated Red Blood Cells % 0 % (-); Platelet Count 234 10^3/uL (130-400); Red Cell Dist. Width 16.7 % (11.5-14.5)
[2024-12-14 10:47] LABS: ALT (SGPT) 19 U/L (0-50); AST (SGOT) 36 U/L (17-59); Albumin 2.9 g/dl (3.5-5.0); Alkaline Phosphatase 141 U/L (38-126); Blood Urea Nitrogen 40 mg/dl (9-20); Calcium 8.5 mg/dl (8.4-10.2); Carbon Dioxide 27 mmol/L (22-30); Chloride 96 mmol/L (98-107); Estimated Creatinine Clearance 24 ml/min; Glucose 133 mg/dl (70-99); Potassium 4.5 mmol/L (3.5-5.1); Sodium 127 mmol/L (135-145); Total Protein 6.4 g/dl (6.3-8.2); eGFR 25.48
[2024-12-14] MEDS: NSS 1000 IV (10:57)
--- NOTE | 2024-12-14 12:52 | HPS.HSE ---
Family Physician
-
Family Physician: Destinee Balderrama, DO
Chief Complaint
-
No output from the nephrostomy tube, GI bleeding
History of Present Illness
89-year-old man with history of prostate cancer and ureteral obstruction and bilateral nephrostomy tubes was sent in as he was not having any output from the left nephrostomy tube for a week. Labs showed that the creatinine was 2.4. CT showed
appropriate position but continued hydronephrosis on the left. Nephrostomy tube was changed by interventional ideology. Patient was also having some GI bleeding. ER tested stools which was heme positive. Patient is on Eliquis as outpatient.
Medical History
Past Medical History
Past Medical History: Reports Other
Additional Past Medical History:
History of prostate cancer
Past Surgical History: Reports Other
Additional Past Surgical History:
Prostatectomy, tonsillectomy, cataract surgery, cystoscopy, nephrostomy tubes
Social History
Tobacco: Former Smoker
Alcohol: Daily (1 drink every night)
Family History
Family History: Cancer (father)
Allergies / Home Medications
Allergies reflects when Allergies were last updated in [employer].
Home Medications with original date entered in [employer]
Allergy/Medication List:
Allergies
Allergy/AdvReac Type Severity Reaction Status Date / Time
No Known Allergies Allergy Verified 11/13/24 13:27
Home Medications
brimonidine 0.2 %-timolol 0.5 % eye drops 1 drp RIGHT EYE BID Eye Condition 11/13/24
therapeutic multivitamin 1 tab PO DAILY Supplement 11/13/24
Saccharomyces boulardii 250 mg capsule (Florastor) 250 mg PO BID Supplement 12/14/24
apixaban 2.5 mg tablet (Eliquis) 2.5 mg PO BID Blood Clot Prevention/Tx 12/14/24
bisacodyl 10 mg rectal suppository (Dulcolax (bisacodyl)) 10 mg AK DAILYPRN PRN if no bm aftr mom 12/14/24
collagenase clostridium histo. 250 unit/gram topical ointment (Santyl) 1 applic topical DAILY gluteal clef 12/14/24
collagenase clostridium histo. 250 unit/gram topical ointment (Santyl) 1 applic topical DAILYPRN PRN gluteal cleft 12/14/24
magnesium hydroxide 400 mg/5 mL oral suspension (Milk of Magnesia) 2,400 mg PO [id number] PRN if no bm by 3rd day give on day 4 12/14/24
ondansetron HCl 4 mg tablet 4 mg PO Q8HPRN PRN nausea 12/14/24
sodium phosphates 19 gram-7 gram/118 mL enema (Fleet Enema) 118 ml AK DAILYPRN PRN if no bm aftr dulcolax 12/14/24
Review of Systems
-
A 12 point ROS was completed and negative except as noted: Yes
Abdomen/GI: Reports Bloody Stools; Denies Abdominal Pain, Nausea, Vomiting, Diarrhea or Black Stools
: Denies Dysuria
Physical Exam
Vital Signs
Vital Signs
Temp Pulse Resp BP Pulse Ox
97.9 F 95 16 118/69 95
12/14/24 10:03 12/14/24 11:09 12/14/24 11:09 12/14/24 12:00 12/14/24 12:02
Physical Exam
General: Conversant
Respiratory: Clear
Cardiac: S1/S2 and Regular Rhythm
GI: Soft, Non Tender and Normal Bowel Sounds
Neuro: Awake, AO x 3 and Nonfocal/grossly intact
Psych: Intact Judgment/Insight
Laboratory Results
-
12/14/24 10:23
12/14/24 10:23
Laboratory Results
Total Bilirubin 0.6 mg/dl (0.2-1.3) 12/14/24 10:23
AST 36 U/L (17-59) 12/14/24 10:23
ALT 19 U/L (0-50) 12/14/24 10:23
Alkaline Phosphatase 141 U/L (38-126) H 12/14/24 10:23
Impression/Plan
-
IMPRESSION/PLAN:
CT abdomen pelvis-left percutaneous nephrostomy tube in appropriate position however mild hydronephrosis of the left kidney appears to be new compared to the CT chest from 12-09. May be related to partial blockage. Multiple osteoblastic
metastasis. Urinary bladder is diffusely thick-walled. Cholelithiasis
Echo 11/03/2024-EF 70 to 75%. RV size and systolic function are within normal limits. Mild AAS. Mild to moderate TR. PA pressure 40 mmHg.
# Acute kidney injury
IV fluids
Left nephrostomy tube exchanged by IR on 12/14/2024
Bilateral nephrostomy tubes since October 2024
# Rectal bleeding
Hold Eliquis
Follow hemoglobin at 8 pm
GI evaluation
# Hyponatremia-likely secondary to obstruction. Rule out SIADH. Check serum and urine osmolality and urine sodium. Will give 1 L of D5 normal saline and reassess sodium at 8 PM and then proceed with the results.
# Paroxysmal atrial fibrillation-hold Eliquis. Not on any rate controlling agents as outpatient.
# Recently treated complicated UTI treated for-Enterobacter
# Anemia-seems to be chronic. Hemoglobin may drop once patient is hydrated
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
# History of PE on Eliquis as outpatient
# History of radiation cystitis
# Cholelithiasis
# Hypoalbuminemia
# Unstageable sacral decubitus ulcer-wound care
# Ex-smoker
# DVT prophylaxis-SCDs for now
# CODE STATUS-patient wants to be DNR
Discussed with GI
Discussed with patient's nurse at bedside
Part of this note was created using voice recognition system. Occasional wrong word or��sound alike� substitutions may have inadvertently occurred due to the inherent limitations of voice recognition software. If noted kindly bring it to my
attention for correction.
--- NOTE | 2024-12-14 13:06 | EDRN ---
rt nephrostomy -220 ml. Lt nephrostomy 200 ml
--- NOTE | 2024-12-14 13:07 | EDRN ---
Nephrostomy output- Lt -200 ml. Rt 220 ml
--- NOTE | 2024-12-14 14:45 | CON.GI ---
Addendum entered and electronically signed by Latonia Rush DO 12/14/24 17:43:
Patient seen and examined independently of WILLIE. I agree with her note with my additions below
Camacho is an 89-year-old male with history of aortic stenosis, pulmonary emboli in September 2024 on Eliquis, prostate cancer with bony metastasis with history of radiation and prostatectomy. Complicated by radiation cystitis stricturing and bilateral
nephrostomy tubes for urethral obstruction. Was sent from [facility] because of decreased output from the nephrostomy tube and a worsening renal function found to have hydronephrosis and underwent tube change with IR. GI was called because of
questionable rectal bleeding. Patient states he may have had a spot in his underwear. He had significant hematuria in early October.
Today, on exam he has light red urine in his nephrostomy tube and on rectal exam he has a yellow-brown heme-negative stool. Patient denies any rectal bleeding. He did have some nausea and dry heaving this morning but that has since resolved since
the nephrostomy change.
# Consulted for suspected rectal bleeding -however rectal exam reveals brown-yellowish heme-negative stool
-- I suspect it was a urinary source
-- Patient has red urine in his nephrostomy bag
-- Patient's hemoglobin is stable 8.5 from 8.6 a week ago
-- Would add a once daily PPI. No need for GI intervention with brownish-yellow stools
-- If patient has any overt rectal bleeding, please call us back. Otherwise GI will sign off
Original Note:
Consultation
-
Date/Time Consultation Requested: 12/14/24 1300
Date/Time Consultation Performed: 12/14/24 1445
Requesting Provider: Lino Severino MD
Performing Provider: WILLIE Reardon, Latonia Rush DO
Reason for Consultation: heme + stool, anemia
Medical History
Chief Complaint / HPI
History of Present Illness:
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
nephrostomy tubes for ureteral obstruction . He now presents with decreased output and noted creat of 2.4 and continued hydronephrosis on left and tube change with IR. Pt also noted noted some rectal bleeding and asked to see. He has had
several recent admission with PE diagnosed on September, hematuria in early October then sepsis with complicated UTI, PNA, new onset afib and anemia with hbg down to low 7 range 11/13-11/19.
In review with patient he admits to not seeing blood in stools as being assisted with staff at [facility]. He does admits to some dry heaves with one episode of vomiting dinner but otherwise denies dysphagia, GERD,abdominal pain, diarrhea,
constipation or black stools. No hx EGD in past. Denies NSAID use.
11/2008 -velasquez normal colon to good prep to cecum
Past Medical History
Past Medical History: Arrhythmias (new onset Afib 10/2024), Cancer (prostate CA and radiation), Hypercholesterolemia, Valvular Disease () and Other (hematuria with radiation cystitis , PE's 09/2024 , colon polyps, obesity )
Past Surgical History: Tonsilectomy, Urological (prostatectomy with prostate mass removed 07/22/24 ) and Other (b/l nephrostomy tube, hernia repair )
Social History
Tobacco: Non-Smoker
Alcohol: Occasional
Drug: None
Living: Group Home
Employment: Retired
Family History
Family History: Other (denies family history )
Allergies / Home Medications
Allergy/AdvReac Type Severity Reaction Status Date / Time
No Known Allergies Allergy Verified 11/13/24 13:27
�Medication �Instructions �Recorded
brimonidine 0.2 %-timolol 0.5 % 1 drp RIGHT EYE BID Eye Condition 11/13/24
eye drops
therapeutic multivitamin 1 tab PO DAILY Supplement 11/13/24
Saccharomyces boulardii 250 mg 250 mg PO BID Supplement 12/14/24
capsule (Florastor)
apixaban 2.5 mg tablet (Eliquis) 2.5 mg PO BID Blood Clot 12/14/24
Prevention/Tx
bisacodyl 10 mg rectal suppository 10 mg DE DAILYPRN PRN if no bm 12/14/24
(Dulcolax (bisacodyl)) aftr mom
collagenase clostridium histo. 250 1 applic topical DAILY gluteal clef 12/14/24
unit/gram topical ointment (Santyl)
collagenase clostridium histo. 250 1 applic topical DAILYPRN PRN 12/14/24
unit/gram topical ointment (Santyl) gluteal cleft
magnesium hydroxide 400 mg/5 mL 2,400 mg PO [id number] PRN if no bm 12/14/24
oral suspension (Milk of Magnesia) by 3rd day give on day 4
ondansetron HCl 4 mg tablet 4 mg PO Q8HPRN PRN nausea 12/14/24
sodium phosphates 19 gram-7 118 ml DE DAILYPRN PRN if no bm 12/14/24
gram/118 mL enema (Fleet Enema) aftr dulcolax
Review of Systems
-
History Source: Patient
Constitutional: Reports Weight Loss and Fatigue
EENT: Reports No Symptoms
Respiratory: Reports No Symptoms
Abdomen/GI: Reports Nausea, Vomiting and Bloody Stools (reported per staff )
: Reports Other (b/l nephrostomy tubes )
Skin: Reports No Symptoms
Neurological: Reports Weakness
Endocrine: Reports No Symptoms
Hematologic/Lymphatic: Reports Bleeding (urologic bleeding)
Vital Signs
Temp Pulse Resp BP Pulse Ox
97.9 F 65 16 118/63 94
12/14/24 10:03 12/14/24 13:09 12/14/24 13:09 12/14/24 13:09 12/14/24 13:00
Physical Exam
Exam
General: Well Developed
HEENT: Normocephalic and Anicteric
Respiratory: Clear
Cardiac: Regular Rhythm
GI: Soft, Non Tender and Non Distended
Rectal: Hem Negative (yellow/brown no visible blood, posterior firmness )
Musculoskeletal: No Clubbing and No Cyanosis
Skin: Warm and Dry
Neuro: Awake, Alert and AO x 3
Psych: Calm
Results
WBC 6.9 10^3/uL (4.8-10.8) 12/14/24 10:23
Hgb 8.5 g/dL (13.0-18.0) L 12/14/24 10:
Hct 26.4 % (39.0-52.0) L 12/14/24 10:23
MCV 82.0 fL (80.0-94.0) 12/14/24 10:23
Plt Count 234 10^3/uL (130-400) 12/14/24 10:23
Absolute Neuts (auto) 4.0 10^3/uL (1.4-6.5) 12/14/24 10:23
Sodium 127 mmol/L (135-145) L 12/14/24 10:23
Potassium 4.5 mmol/L (3.5-5.1) 12/14/24 10:23
Chloride 96 mmol/L (98-107) L 12/14/24 10:23
Carbon Dioxide 27 mmol/L (22-30) 12/14/24 10:23
BUN 40 mg/dl (9-20) H 12/14/24 10:23
Creatinine 2.4 mg/dL (0.7-1.3) H 12/14/24 10:23
Calcium 8.5 mg/dl (8.4-10.2) 12/14/24 10:23
Total Bilirubin 0.6 mg/dl (0.2-1.3) 12/14/24 10:23
AST 36 U/L (17-59) 12/14/24 10:23
ALT 19 U/L (0-50) 12/14/24 10:23
Alkaline Phosphatase 141 U/L (38-126) H 12/14/24 10:23
Diagnostic Image Results:
12/14/24 CT Abd/pel Without Iv Or Oral
1. Left percutaneous nephrostomy is in appropriate position, however there is mild hydronephrosis of the left kidney, which appears to be new compared to prior CT chest dated 11/16/2024 (although the left kidney was incompletely imaged on prior chest
CT). Findings may be related to partial blockage of the catheter, consider exchange of the catheter.
2. Multiple osteoblastic metastases new compared to prior CT dated 07/22/2024.
3. Urinary bladder is diffusely thick-walled, which may be related to the patient's history of bladder carcinoma, or other nonspecific cystitis.
4. Cholelithiasis.
Prior GI Procedures:
EGD: none
Colonoscopy: 11/2008 -velasquez normal colon to good prep to cecum
Assessment / Plan
-
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
nephrostomy tubes for ureteral obstruction. He now presents with decreased output and noted creat of 2.4 and continued hydronephrosis on left and tube change with IR. Pt also noted noted some rectal bleeding and asked to see. He has had
several recent admission with PE diagnosed on September, hematuria in early October then sepsis with complicated UTI, PNA, new onset afib and anemia with hbg down to low 7 range 11/13-11/19. 11/2008 -velasquez normal colon to good prep to cecum.
Repeat rectal on exam 12/14 yellow/brown heme neg with posterior firmness
-rectal bleeding -- current heme neg on repeat exam with posterior rectal firmness
-increased creat with decreased drainage from nephrostomy tube s/p exchange with red blood in left nephrostomy tube
-anemia
-recent PE with new Eliquis
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
-recent radiation cystitis
PLAN:
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
current rectal yellow/brown mucous hem neg but red blood in nephrostomy bag
ok for diet
trend hbg and monitor for rebleeding
ok for GI to continue Eliquis
if recurrent increase bleeding consider flex
-
-
Thank you for consultation and allowing me to participate in the patient's care. Please call the clothing consultant GI physician during the after hours with any questions or concerns.
[2024-12-14 15:16] LABS: Cortisol, Random 17.5 ug/dl; TSH 1.62 uIU/ml (0.47-4.68)
[2024-12-14] MEDS: D5/0.9% SODIUM CHLORIDE 1000 IV (17:28)
[2024-12-14] MEDS: PROTONIX 40 MG PO (18:39)
[2024-12-14] MEDS: ALPHAGAN 0.2% EYE DROPS 1 DROP RIGHT EYE (20:00)
[2024-12-14] MEDS: FLORASTOR 250 MG PO (20:00)
[2024-12-14] MEDS: TIMOPTIC 0.5% OPHTHALMIC SOLUTION 1 DROP RIGHT EYE (20:01)
[2024-12-14 21:08] LABS: Hematocrit 29.1 % (39.0-52.0); Hemoglobin 8.9 g/dL (13.0-18.0)
[2024-12-14 21:25] LABS: Blood Urea Nitrogen 32 mg/dl (9-20); Calcium 8.2 mg/dl (8.4-10.2); Carbon Dioxide 26 mmol/L (22-30); Chloride 99 mmol/L (98-107); Estimated Creatinine Clearance 36 ml/min; Glucose 116 mg/dl (70-99); Potassium 4.1 mmol/L (3.5-5.1); Sodium 133 mmol/L (135-145); eGFR 41.44
[2024-12-15 03:40] VITALS: BP 113/57
[2024-12-15 05:42] LABS: Hematocrit 26.6 % (39.0-52.0); Hemoglobin 8.2 g/dL (13.0-18.0); Mean Corp Hgb Conc. 30.8 g/dL (33.0-37.0); Mean Corpuscular Volume 86.9 fL (80.0-94.0); Platelet Count 221 10^3/uL (130-400); Red Cell Dist. Width 16.5 % (11.5-14.5)
[2024-12-15 06:05] LABS: Blood Urea Nitrogen 27 mg/dl (9-20); Calcium 8.4 mg/dl (8.4-10.2); Carbon Dioxide 25 mmol/L (22-30); Chloride 103 mmol/L (98-107); Estimated Creatinine Clearance 44 ml/min; Glucose 99 mg/dl (70-99); Potassium 4.0 mmol/L (3.5-5.1); Sodium 132 mmol/L (135-145); eGFR 53.17
[2024-12-15 07:49] VITALS: BP 153/96
[2024-12-15] MEDS: PROTONIX 40 MG PO (08:27)
[2024-12-15] MEDS: VITAMIN B1 100 MG PO (08:27)
[2024-12-15] MEDS: SANTYL OINTMENT 1 APPLIC TOPICAL (08:27)
[2024-12-15] MEDS: THERAGRAN 1 TABLET PO (08:27)
[2024-12-15] MEDS: FLORASTOR 250 MG PO (08:27)
[2024-12-15] MEDS: TIMOPTIC 0.5% OPHTHALMIC SOLUTION 1 DROP RIGHT EYE (08:27)
[2024-12-15] MEDS: ALPHAGAN 0.2% EYE DROPS 1 DROP RIGHT EYE (08:27)
--- NOTE | 2024-12-15 10:15 | W.PN.HOSP.TC ---
Addendum entered and electronically signed by Lino Allred MD 12/15/24 16:18:
Correction stage III sacral decubitus ulcer-wound care
Addendum entered and electronically signed by Lino Allred MD 12/15/24 16:05:
Physical therapy recommended rehab. Will discharge patient home
VN request placed
More than 30 minutes spent in discharge including
Final examination of the patient
Summarizing hospital stay
Instructions for continuing care to all relevant caregivers
Preparation of discharge records, prescriptions, and referral forms
Original Note:
Today's Communication/Plan
-
Eliquis restarted
Get PSA level prior to discharge
Physical therapy and Occupational Therapy to evaluate the patient
If stable will discharge
Assessment / Plan
Assessment / Plan
CT abdomen pelvis-left percutaneous nephrostomy tube in appropriate position however mild hydronephrosis of the left kidney appears to be new compared to the CT chest from 12-09. May be related to partial blockage. Multiple osteoblastic
metastasis. Urinary bladder is diffusely thick-walled. Cholelithiasis
Echo 11/03/2024-EF 70 to 75%. RV size and systolic function are within normal limits. Mild AAS. Mild to moderate TR. PA pressure 40 mmHg.
Patient is awake and alert denies any complaints
No abdominal pain
No bleeding per rectum
Mild pinkish urine in the left nephrostomy bag
Cardiovascular system S1-S2 appreciated
Chest clear to auscultation
Abdomen soft and nontender
No pedal edema
# Acute kidney injury
Resolved with IV fluids and nephrostomy tube exchange
Left nephrostomy tube exchanged by IR on 12/14/2024
Bilateral nephrostomy tubes since October 2024
# Rectal bleeding
Patient was heme-negative per GI no further workup planned as inpatient
Hemoglobin is stable
Patient is tolerating a diet. Eliquis restarted
# Hyponatremia-likely secondary to obstruction. Rule out SIADH. Better
# Paroxysmal atrial fibrillation-restart Eliquis. Not on any rate controlling agents as outpatient.
# Recently treated complicated UTI treated for-Enterobacter
# Anemia-seems to be chronic. Hemoglobin stable
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 he gets Lupron injections
# History of PE on Eliquis as outpatient
# History of radiation cystitis
# Cholelithiasis
# Hypoalbuminemia
# Unstageable sacral decubitus ulcer-wound care
# Ex-smoker
# DVT prophylaxis-Eliquis restarted
# CODE STATUS-patient wants to be DNR
Discussed with GI
Discussed with patient's nurse at bedside
D/w and updated.
I have also sent a [place] text for Dr. Mosley to update. Patient has an appointment on December 26 at 2:30 PM. Will get an updated PSA total diagnostic per discussion.
Part of this note was created using voice recognition system. Occasional wrong word or��sound alike� substitutions may have inadvertently occurred due to the inherent limitations of voice recognition software. If noted kindly bring it to my
attention for correction.
Anticipated Discharge: Today
Subjective/Interval History
-
Date of Service: December 15, 2024
Objective Data
-
Labs:
Laboratory Results
12/15/24
05:05
WBC 5.7
Hgb 8.2 L
Hct 26.6 L
Plt Count 221
Sodium 132 L
Potassium 4.0
Chloride 103
Carbon Dioxide 25
BUN 27 H
Creatinine 1.3
Glucose 99
Calcium 8.4
Vital Signs:
Vital Signs
Temp Pulse Resp BP Pulse Ox
97.1 F 109 16 153/96 96
12/15/24 07:49 12/15/24 07:49 12/15/24 07:49 12/15/24 07:49 12/15/24 07:49
I&O
12/14/24 12/15/24 12/16/24
06:59 06:59 06:59
Intake Total 1380 / 1380
Output Total 2260 / 2260
Balance -880 / -880
--- NOTE | 2024-12-15 10:48 | WOUNDNOTE ---
RIGHT UPPER BUTTOCK
--- NOTE | 2024-12-15 10:48 | WOUNDNOTE ---
EMIL PI 1935, [id number]
--- NOTE | 2024-12-15 10:49 | WOUNDNOTE ---
EMIL PI 1935, [id number]
[2024-12-15] MEDS: ELIQUIS 2.5 MG PO (10:59)
--- NOTE | 2024-12-15 11:02 | WOUNDNOTE ---
[facility] RN note: Patient admitted with No output from the nephrostomy tube, GI bleeding
See H&P for complete history.
PMH: ETHEL, prostate cancer, nephrostomy tubes, ex-smoker
Wound Location and type/assessment: Patient admitted with stage 3 sacral coccyx ulcer and DTI of right upper buttock. Patient reports some discomfort in lower back and demonstrated ability to turn self in bed. Please see worklist for more details
of wound. The sacral wound is 1 cm with small amount of slough in the base. Patient reports sitting for long periods of time when at home and reports being in bed a lot while at rehab. The patient was made aware of the DTI of his right upper
buttock.
Appetite: Fair
Pressure redistribution devices in place: Versa Care Air, heels off-loaded with pillows under calves.
Plan: Recommend patient follow up at [facility]. Patient agreeable to plan. This RN offered to speak to when she arrives at hospital today and patient is agreeable Will recommend packing with saline moistened gauze and change dressing daily. Continue
alll off-loading measures. Dr. Allred and CELSA Antunez updated on plan and recommendations.
Will confirm orders with hospitalist and update KIYA Werner.
Updated care plan and will follow as needed.
Note to case management of equipment requested for discharge:
Recommend follow up at wound care center upon discharge. TT Hospitalist with Plan.
[2024-12-15 12:07] VITALS: BP 132/68
--- NOTE | 2024-12-15 13:03 | CM ---
Call placed to Eric's to discuss discharge plan. Per . Holly, Eric was scheduled to be discharged from [facility] yesterday, and he was going to return home. She anticipates picking rEic up today and has some follow up appointments
scheduled in the next week.
Plan: Discharge to home; PT/OT evals pending. CM watching for recommendations.
[2024-12-15 15:32] VITALS: BP 106/71
--- NOTE | 2024-12-15 16:02 | PN.CDI ---
CDI
- -
CDI:
Physician Documentation Request
Admit Date: 12/14/24 14:16
Dear Doctor Brigida,
Clinical Indicators:
Patient admitted with ETHEL.
12/14 WOC RN skin wound assessment, Sacral coccyx Stage 3 Pressure Injury POA
12/15 PN, 'Unstageable sacral decubitus ulcer-wound care'
Due to potentially conflicting documentation, please clarify the stage of the sacral pressure injury:
Sacrum Stage 3 Pressure Injury, POA
Unstageable sacral decubitus ulcer POA (documentation complete)
Other, please specify
Wound Stages*:
- Stage 1 - Skin intact, non-blanchable redness
- Stage 2 - Partial thickness loss of dermis, includes intact or open blister
- Stage 3 - Full thickness tissue not including bone, tendon or muscle
- Stage 4 - Full thickness tissue loss, including exposed bone, tendon or muscle
- Unstageable - Full thickness loss in which the base of the ulcer is covered by slough (yellow, crews, sarah, green or brown) and/or eschar (crews, brown or black) in the wound bed.
- Unable to determine
Use of terms such as suspected, likely, concern for, or probable (associated with a specific diagnosis that is being evaluated, monitored, or treated as if it exists) are acceptable and can be coded in the inpatient setting, when documented at the
time of discharge.
Thank you,
YOUNG Woodruff RN
CDI Specialist
available via tiger text
Please use your independent medical judgment in providing your response.
*Source: National Pressure Ulcer Advisory Panel (NPUAP)
--- NOTE | 2024-12-15 16:09 | W.DS.TRANS ---
Addendum entered and electronically signed by Lino Allred MD 12/15/24 16:17:
Dictation- [id number]
Original Note:
DC Summary - Gynecological Assistant
-
Discharge Instructions:
Discharge Diagnosis/Procedures Malfunctioning left nephrostomy tube
Acute kidney injury
Hyponatremia
Atrial fibrillation
Anemia
Prostate cancer with metastasis
History of PE
Radiation cystitis
Gallstones
Stage III sacral decubitus ulcer
Diet As tolerated
Activity As tolerated,With assistance
Driving Restrictions No driving
Other Services VN
Instructions: How to care for a nephrostomy tube
Stand-Alone Forms:
Changes to Home Medications: Yes
Discharge Medications:
DC Medications w/original date entered in [employer]
brimonidine 0.2 %-timolol 0.5 % eye drops 1 drp RIGHT EYE BID Eye Condition 11/13/24
therapeutic multivitamin 1 tab PO DAILY Supplement 11/13/24
apixaban 2.5 mg tablet (Eliquis) 2.5 mg PO BID Blood Clot Prevention/Tx 12/14/24
polyethylene glycol 3350 17 gram oral powder packet 17 g PO DAILYPRN PRN constipation #0 ea 12/15/24
thiamine mononitrate (vit B1) 100 mg tablet 100 mg PO DAILY Supplement #30 tabs 12/15/24
Home Medication Changes
fleets, MOM, florastor stopped
Pending Results: No
[2024-12-15 16:16] LABS: PSA, Total - Diagnostic 3.64 ng/ml (0.0-4.0)
== END 2024-12-15 17:15 | disposition home or self-care (01) | DRG 698 ==
LOC: 3 WEST ACU 14:16
PROVIDERS: Radiology Vascular & Interventional Radiology; ADMITTING PHYSICIAN Hospitalist; CONSULT PHYSICIAN Internal Medicine; EMERGENCY PHYSICIAN Emergency Medicine; FAMILY PHYSICIAN Family Medicine
PROC: 0T25X0Z Change Drainage Device in Kidney, External Approach (ICD-10-PCS; 2024-12-14)
DX: T83.092A Other mechanical complication of nephrostomy catheter, initial encounter (principal); L89.153 Pressure ulcer of sacral region, stage 3; C79.51 Secondary malignant neoplasm of bone; E87.1 Hypo-osmolality and hyponatremia; N17.9 Acute kidney failure, unspecified; N30.40 Irradiation cystitis without hematuria; N13.30 Unspecified hydronephrosis; Y73.2 Prosthetic and other implants, materials and accessory gastroenterology and urology devices associated with adverse incidents; I48.91 Unspecified atrial fibrillation; D64.9 Anemia, unspecified; C61 Malignant neoplasm of prostate; Z86.711 Personal history of pulmonary embolism; Y84.2 Radiological procedure and radiotherapy as the cause of abnormal reaction of the patient, or of later complication, without mention of misadventure at the time of the procedure; K80.20 Calculus of gallbladder without cholecystitis without obstruction; I48.0 Paroxysmal atrial fibrillation; Z87.891 Personal history of nicotine dependence; E88.09 Other disorders of plasma-protein metabolism, not elsewhere classified; Z85.46 Personal history of malignant neoplasm of prostate; Z79.01 Long term (current) use of anticoagulants; Z80.9 Family history of malignant neoplasm, unspecified; E66.9 Obesity, unspecified; E78.00 Pure hypercholesterolemia, unspecified; Z86.0100 Personal history of colon polyps, unspecified; Z90.79 Acquired absence of other genital organ(s); Z92.3 Personal history of irradiation
CPT/HCPCS: 50435; 74176; 80048; 80053; 82533; 83930; 83935; 84153; 84300; 84443; 85014; 85018; 85025; 85027; 86850; 86900; 86901; 96360; 96361; 97163; 99285

== ENCOUNTER → 2024-12-19 12:24 | Outpatient (REF) | payer MEDICARE, SELFPAY | LOC: WOUND 12:24 | PROVIDERS: ATTENDING PHYSICIAN Surgery; FAMILY PHYSICIAN Family Medicine | DX: L89.153 Pressure ulcer of sacral region, stage 3 (principal); L59.8 Other specified disorders of the skin and subcutaneous tissue related to radiation; Y84.2 Radiological procedure and radiotherapy as the cause of abnormal reaction of the patient, or of later complication, without mention of misadventure at the time of the procedure; C61 Malignant neoplasm of prostate; Z85.46 Personal history of malignant neoplasm of prostate; Z90.79 Acquired absence of other genital organ(s) | CPT/HCPCS: 99213 ==

== ENCOUNTER 2025-01-02 10:14 | Outpatient (REF) | payer MEDICARE, SELFPAY | END 2025-01-02 23:59 | disposition home or self-care (01) | LOC: WOUND 10:14 | PROVIDERS: ATTENDING PHYSICIAN Surgery; FAMILY PHYSICIAN Family Medicine | DX: L89.153 Pressure ulcer of sacral region, stage 3 (principal); L59.8 Other specified disorders of the skin and subcutaneous tissue related to radiation; Y84.2 Radiological procedure and radiotherapy as the cause of abnormal reaction of the patient, or of later complication, without mention of misadventure at the time of the procedure; C61 Malignant neoplasm of prostate; Z85.46 Personal history of malignant neoplasm of prostate; Z90.79 Acquired absence of other genital organ(s) | CPT/HCPCS: 99213 ==

== ENCOUNTER → 2025-01-02 10:48 | Outpatient (REF) | payer MEDICARE, SELFPAY ==
[2025-01-02 12:19] LABS: Hematocrit 28.8 % (39.0-52.0); Hemoglobin 8.8 g/dL (13.0-18.0); Mean Corp Hgb Conc. 30.6 g/dL (33.0-37.0); Mean Corpuscular Volume 84.7 fL (80.0-94.0); Nucleated Red Blood Cells % 0 % (-); Platelet Count 480 10^3/uL (130-400); Red Cell Dist. Width 17.9 % (11.5-14.5)
[2025-01-02 13:49] LABS: ALT (SGPT) 20 U/L (0-50); AST (SGOT) 85 U/L (17-59); Albumin 3.4 g/dl (3.5-5.0); Alkaline Phosphatase 388 U/L (38-126); Blood Urea Nitrogen 23 mg/dl (9-20); Calcium 8.6 mg/dl (8.4-10.2); Carbon Dioxide 28 mmol/L (22-30); Chloride 98 mmol/L (98-107); Glucose 184 mg/dl (70-99); Potassium 5.2 mmol/L (3.5-5.1); Sodium 134 mmol/L (135-145); Total Protein 7.4 g/dl (6.3-8.2); eGFR > 60.00
== END ==
LOC: REG 10:48
PROVIDERS: ATTENDING PHYSICIAN Internal Medicine Hematology & Oncology; FAMILY PHYSICIAN Family Medicine
DX: C61 Malignant neoplasm of prostate (principal); I26.99 Other pulmonary embolism without acute cor pulmonale; C79.51 Secondary malignant neoplasm of bone; D63.0 Anemia in neoplastic disease; D63.8 Anemia in other chronic diseases classified elsewhere; N18.4 Chronic kidney disease, stage 4 (severe)
CPT/HCPCS: 36415; 80053; 85025

== ENCOUNTER 2025-01-23 11:14 | Outpatient (REF) | payer MEDICARE, SELFPAY | END 2025-01-23 23:59 | disposition home or self-care (01) | LOC: WOUND 11:14 | PROVIDERS: ATTENDING PHYSICIAN Registered Nurse; FAMILY PHYSICIAN Family Medicine | DX: L89.153 Pressure ulcer of sacral region, stage 3 (principal); L59.8 Other specified disorders of the skin and subcutaneous tissue related to radiation; Y84.2 Radiological procedure and radiotherapy as the cause of abnormal reaction of the patient, or of later complication, without mention of misadventure at the time of the procedure; C61 Malignant neoplasm of prostate; Z85.46 Personal history of malignant neoplasm of prostate; Z90.79 Acquired absence of other genital organ(s) | CPT/HCPCS: 99213 ==

== ENCOUNTER → 2025-01-30 13:52 | Outpatient (REF) | payer MEDICARE, SELFPAY ==
[2025-01-30 14:51] LABS: Hematocrit 27.7 % (39.0-52.0); Hemoglobin 8.1 g/dL (13.0-18.0); Mean Corp Hgb Conc. 29.2 g/dL (33.0-37.0); Mean Corpuscular Volume 84.5 fL (80.0-94.0); Platelet Count 314 10^3/uL (130-400); Red Cell Dist. Width 20.7 % (11.5-14.5)
[2025-01-30 15:06] LABS: ALT (SGPT) 17 U/L (0-50); AST (SGOT) 64 U/L (17-59); Albumin 3.4 g/dl (3.5-5.0); Alkaline Phosphatase 300 U/L (38-126); Blood Urea Nitrogen 25 mg/dl (9-20); Calcium 7.7 mg/dl (8.4-10.2); Carbon Dioxide 23 mmol/L (22-30); Chloride 105 mmol/L (98-107); Glucose 113 mg/dl (70-99); Potassium 5.4 mmol/L (3.5-5.1); Sodium 136 mmol/L (135-145); Total Protein 7.7 g/dl (6.3-8.2); eGFR > 60.00
[2025-01-30 15:43] LABS: Anisocytosis 2+; Hypochromasia 2+; Macrocytosis 1+; Microcytosis 1+; Normal RBC Morphology No; Nucleated Red Blood Cells % 1.4 % (-)
[2025-01-30 15:44] LABS: Polychromasia Occasional
== END ==
LOC: REG 13:52
PROVIDERS: ATTENDING PHYSICIAN Internal Medicine Hematology & Oncology
DX: C61 Malignant neoplasm of prostate (principal); I26.99 Other pulmonary embolism without acute cor pulmonale; C79.51 Secondary malignant neoplasm of bone; D63.0 Anemia in neoplastic disease; D63.8 Anemia in other chronic diseases classified elsewhere; N18.4 Chronic kidney disease, stage 4 (severe)
CPT/HCPCS: 36415; 80053; 85025